=== PATIENT | male | born 1965 | race Caucasian/White ===

== ENCOUNTER 2018-01-09 00:56 | Emergency (ER) | payer MEDICARE, OTHER ==
[~2018-01-09] VITALS: Ht 182.9 cm; Wt 86.2 kg
[2018-01-09] MEDS ORDERED: AMIODARONE 150 MG/3 ML (CORDARONE) AMP IV ONE (01:00)
--- OUTSIDE RECORDS SUMMARY | 2018-01-09 01:01 | XMS REPORT ---
Author Author ROBERT FUENTES [facility] Address [address] [place] [address] Care Team Providers Care Residential Appraiser Name Role Phone ROBERT FUENTES Unavailable PROBLEMS Type Condition ICD9-CM Code SJM04-SN Code Onset Dates Condition Status SNOMED Code Problem Tobacco dependence F17.200 Active 00482018 Problem Paranoid schizophrenia F20.0 Active 46865414 Problem Generalized anxiety disorder F41.1 Active 48600764 Problem Encounter for long-term (current) use of other medications Z79.899 Active 151616009 ALLERGIES No Known Allergies ENCOUNTERS Encounter Location Date Diagnosis [facility] [id number] [place] [address] 78476- 2839 Jan, [facility] [id number] [place] [address] 01160- 5510 30 Nov, 2017 Acute pain of left knee M25.562 ; Tobacco dependence F17.200 ; Screening for diabetes mellitus Z13.1 ; High risk medication use Z79.899 ; Screening for thyroid disorder Z13.29 ; Screening for prostate cancer Z12.5 and Screening for colon cancer Z12.11 [facility] [id number] [place] [address] 80349- 6479 Nov, Paranoid schizophrenia F20.0 ; Generalized anxiety disorder F41.1 and Encounter for long-term (current) use of other medications Z79.899 [facility] [address] [address] Nov, Injury of neck, initial encounter S19.9XXA ; Injury of left knee, initial encounter S89.92XA and Impacted cerumen of left ear H61.22 [facility] [id number] [place] [address] 82793- 5533 Sep, [facility] [id number] [place] [address] August, Paranoid schizophrenia F20.0 ; Generalized anxiety disorder F41.1 and Encounter for long-term (current) use of other medications Z79.899 [facility] [address] [place] [address] August, [facility] [address] [place] [address] Jul, [facility] [address] [address] 3106 Apr, [facility] [address] [place] [address] Mar, Paranoid schizophrenia, chronic condition F20.0 ; Generalized anxiety disorder F41.1 and Encounter for long-term (current) use of other medications Z79.899 [facility] [address] [address] Feb, [facility] [address] [address]32 Dec, Paranoid schizophrenia, chronic condition F20.0 ; Generalized anxiety disorder F41.1 and Encounter for long-term (current) use of other medications Z79.899 [facility] [address] [address] Nov, [facility] [address] [address]- 0176 Nov, [facility] [address] [place] [address]- 3292 Nov, [facility] [address] [place] [address]- 3412 Oct, [facility] [address] [address]- 7481 Oct, [facility] [id number] [place] [address]- 6076 Sep, [facility] [address] [place] [address]- 9798 Sep, [facility] [address] [place] [address] 2546 August, [facility] [address] [address]- 1046 May, [facility] [address] [address]- 1651 Mar, Paranoid schizophrenia, chronic condition F20.0 ; Encounter for long-term (current) use of other medications Z79.899 and Generalized anxiety disorder F41.1 [facility] [address] [address]- 6226 Dec, [facility] [address] [place] [address]- 7286 Nov, Paranoid schizophrenia, chronic condition F20.0 ; Generalized anxiety disorder F41.1 and Encounter for long-term (current) use of other medications Z79.899 [facility] [address] [address]- 0686 Oct, [facility] [address] [place] [address]- 6986 Sep, [facility] [address] [place] [address]- 6466 Sep, [facility] [address] [place] [address]- 4276 August, [facility] [address] [place] [address]- 6396 Jun, [facility] [id number] [place] [address]- 7126 May, [facility] [id number] [place] [address]- 3792 Apr, Generalized anxiety disorder F41.1 [facility] [id number] [place] [address] 400654- 9191 Apr, [facility] [address] [place] [address] Mar, [facility] [id number] [place] [address] 024698- 1690 Mar, [facility] [id number] [place] [address] 14444- 6416 Feb, [facility] [id number] [place] [address] 09703- 7077 Feb, [facility] [id number] [place] [address] 63371- 8460 Feb, [facility] [id number] [place] [address] 23192- 0468 Jan, Generalized anxiety disorder F41.1 ; Encounter for long- term (current) use of other medications Z79.899 and Paranoid schizophrenia, chronic condition F20.0 [facility] [address] [place] [address] 55839- 5154 Dec, [facility] [address] [place] [address]- 7181 Dec, [facility] [address] [place] [address]- 0249 Dec, [facility] [address] [place] [address]- 2530 Nov, [facility] [id number] [place] [address] 70132- 7070 Oct, [facility] [address] [place] 7914 Oct, [facility] [id number] [place] [address] 55384- 2546 Oct, [facility] [place] [facility] [address] [id number] [place] [address]- 7497 August, [facility] [place] [facility] [address] [id number] [place] [address]- 3176 Jul, [facility] [place] [facility] [address] [facility] [id number] [place] [address]- 5889 Jul, [facility] [place] [facility] [address] [id number] [place] [address]- 2522 Jun, [facility] [place] [facility] [address] [id number] [place] [address]- 5600 Jun, [facility] [place] [facility] [address] [facility] [id number] [place] [address]- 3269 May, [facility] [place] [facility] [address] [facility] [id number] [place] [address]- 2969 May, [facility] [place] [facility] [address] [facility] [id number] [place] [address]- 4261 May, [facility] [place] [facility] [address] [facility] [id number] [place] [address]- 4208 May, [facility] [place] [facility] [address] [facility] [id number] [place] [address]- 2623 Apr, [facility] [place] [facility] [address] [facility] [id number] [place] [address]- 1617 Apr, [facility] [place] [facility] [address] [id number] [place] [address]- 7112 Mar, [facility] [place] [facility] [address] [id number] [place] [address]- 9350 Mar, [facility] [place] [facility] [address] [facility] [id number] [place] [address]- 9559 Mar, [facility] [place] [facility] [address] [facility] [id number] [place] [address]- 4306 Mar, [facility] [place] [facility] [address] [id number] [place] [address]- 1151 Mar, [facility] [place] [facility] [address] [id number] [place] [address]- 5730 Mar, [facility] [place] [facility] [address] [id number] [place] [address]- 3322 Feb, [facility] [place] [facility] [address] [id number] [place] [address]- 4627 Feb, [facility] [place] [facility] [address] [id number] [place] [address]- 7505 Jan, [facility] [place] [facility] [address] [id number] [place] [address]- 8919 Jan, [facility] [place] [facility] [address] [id number] [place] [address]- 7076 Jan, [facility] [place] [facility] [address] [id number] [place] [address]- 5728 Jan, [facility] [place] [facility] [address] [id number] [place] 6147 Dec, [facility] [place] [facility] [address] [id number] [place] [address]- 6808 Dec, [facility] [place] [facility] [address] [id number] [place] [address]643 Nov, [facility] [place] [facility] [address] [id number] [place] [address]- 5807 Nov, [facility] [place] [facility] [address] [id number] [place] [address]- 5545 Nov, [facility] [place] [facility] [address] [id number] [place] [address]- 4056 Nov, [facility] [place] [facility] [address] [id number] [place] [address]- 1685 Oct, [facility] [place] [facility] [address] [id number] [place] [address]- 0190 Oct, [facility] [place] [facility] [address] [id number] [place] [address]- 9952 Oct, [facility] [place] [facility] [address] [id number] [place] [address]- 4044 Oct, [facility] [place] [facility] [address] [id number] [place] [address]- 1319 Sep, [facility] [place] [facility] [address] [id number] [place] [address]- 3233 Sep, [facility] [place] [facility] [address] [id number] [place] [address]- 1902 Sep, [facility] [place] [facility] [address] [id number] [place] [address]- 5846 Sep, [facility] [place] [facility] [address] [id number] [place] [address]- 3219 Sep, [facility] [place] [facility] [address] [id number] [place] [address]- 6720 Sep, [facility] [place] [facility] [address] [id number] [place] [address]- 6760 August, [facility] [place] [facility] [address] [id number] [place] [address]- 2639 August, [facility] [place] [facility] [address] [id number] [place] [address]- 6641 August, [facility] [place] [facility] [address] [id number] [place] [address]- 5137 Jul, [facility] [place] [facility] [address] [id number] [place] [address]- 3644 Jul, [facility] [place] [facility] [address] [id number] [place] [address]- 0200 Jul, [facility] [place] [facility] [address] [id number] [place] [address]- 5565 Jul, [facility] [place] [facility] [address] [id number] [place] [address]- 2649 Jun, [facility] [place] [facility] [address] [id number] [place] [address]- 0383 Jun, [facility] [place] [facility] [address] [id number] [place] [address]- 2986 Jun, [facility] [place] [facility] [address] [id number] [place] [address]- 9515 Jun, [facility] [place] [facility] [address] [id number] [place] [address]- 3538 Jun, [facility] [place] [facility] [address] [id number] [place] [address]- 4699 Jun, [facility] [place] [facility] [address] [id number] [place] [address]- 7347 Jun, [facility] [place] [facility] [address] [facility] [id number] [place] [address]- 7429 Jun, [facility] [place] [facility] [address] [id number] [place] [address]- 6629 May, [facility] [place] [facility] [address] [id number] [place] [address]- 0714 May, [facility] [place] [facility] [address] [facility] [id number] [place] [address]- 4043 May, [facility] [place] [facility] [address] [id number] [place] [address]- 9976 May, [facility] [place] [facility] [address] [id number] [place] [address] 2546 May, [facility] [place] [facility] [address] [id number] [place] [address]- 9796 May, [facility] [place] [facility] [address] [facility] [id number] [place] [address]- 2546 May, [facility] [place] [facility] [address] [facility] [id number] [place] [address]- 2740 Mar, [facility] [place] [facility] [address] [id number] [place] [address]- 7175 Mar, [facility] [place] [facility] [address] [id number] [place] [address]- 8485 Mar, [facility] [place] [facility] [address] [id number] [place] 6794 Mar, [facility] [place] [facility] [address] [id number] [place] [address]- 5568 Mar, [facility] [place] [facility] [address] [id number] [place] [address]- 0529 Mar, [facility] [place] [facility] [address] [id number] [place] [address]- 3973 Mar, [facility] [place] [facility] [address] [id number] [place] [address]- 4198 Feb, [facility] [place] [facility] [address] [id number] [place] [address]- 2463 Feb, [facility] [place] [facility] [address] [id number] [place] [address]- 2921 Feb, [facility] [place] [facility] [address] [id number] [place] [address]- 2390 Jan, [facility] [place] [facility] [address] [id number] [place] [address]- 0020 30 Jan, 2013 [facility] [place] [facility] [address] [id number] [place] [address]- 4488 Jan, [facility] [place] [facility] [address] [id number] [place] [address]- 2388 Jan, [facility] [place] [facility] [address] [id number] [place] [address]- 2368 14 Nov, 2012 [facility] [place] [facility] [address] [id number] [place] [address]- 5793 Nov, [facility] [place] [facility] [address] [id number] [place] [address]- 9015 Nov, [facility] [address] [id number] [place] [address]- 2857 August, [facility] [address] [id number] [place] [address]- 5074 August, [facility] [address] [id number] [place] [address]- 3456 August, [facility] [address] [id number] [place] [address]- 4736 Jul, [facility] [address] [id number] [place] [address]- 9094 Jul, [facility] [address] [id number] [place] [address]- 6188 Jul, [facility] [address] [id number] [place] [address]- 9938 Jul, [facility] [address] [id number] [place] [address]- 9449 Jun, [facility] [address] [id number] [place] [address]- 9983 Jun, [facility] [address] [id number] [place] [address]- 3401 May, [facility] [address] [id number] [place] [address]- 2182 Apr, [facility] [address] [id number] [place] [address]- 1744 Apr, [facility] [place] [facility] [address] [id number] [place] [address]- 3553 Apr, [facility] [place] [facility] [address] [id number] [place] [address]- 7354 16 Apr, 2012 [facility] [address] [id number] [place] [address]- 3999 14 Apr, 2012 [facility] [place] [facility] [address] [id number] [place] [address]- 9992 10 Apr, 2012 [facility] [address] [id number] [place] [address]- 6586 09 Apr, 2012 [facility] [address] [id number] [place] [address]- 7442 04 Apr, 2012 [facility] [address] [id number] [place] [address]- 9075 Apr, [facility] [address] [id number] [place] [address]- 5187 Apr, [facility] [address] [id number] [place] [address]- 1200 Mar, [facility] [address] [id number] [place] [address]- 8431 Mar, [facility] [address] [id number] [place] [address]- 7625 Mar, [facility] [address] [id number] [place] [address]- 6445 Mar, [facility] [address] [id number] [place] [address]- 0725 Mar, [facility] [address] [id number] [place] [address]- 3329 18 Mar, 2012 [facility] [address] [id number] [place] [address]- 5870 18 Mar, 2012 [facility] [address] [id number] [place] [address]- 9186 Mar, [facility] [address] [id number] [place] [address]- 4976 10 Mar, 2012 [facility] [address] [id number] [place] [address]- 5925 07 Mar, 2012 [facility] [address] [id number] [place] [address]- 2546 Mar, [facility] [place] [facility] [address] [id number] [place] [address]- 2770 Mar, [facility] [place] [facility] [address] [id number] [place] [address]- 9016 Mar, [facility] [place] [facility] [address] [id number] [place] [address]- 3866 Mar, [facility] [place] [facility] [address] [id number] [place] [address]- 6265 Feb, [facility] [place] [facility] [address] [id number] [place] [address]- 4975 Feb, [facility] [place] [facility] [address] [id number] [place] [address]- 1588 Feb, [facility] [place] [facility] [address] [id number] [place] [address]- 5945 Feb, [facility] [place] [facility] [address] [id number] [place] [address]- 9493 Jan, [facility] [place] [facility] [address] [id number] [place] [address]- 3057 Jan, [facility] [place] [facility] [address] [id number] [place] [address]- 7696 Dec, [facility] [place] [facility] [address] [id number] [place] [address]- 7152 05 Dec, 2011 [facility] [place] [facility] [address] [id number] [place] [address]- 2932 Dec, [facility] [place] [facility] [address] [id number] [place] [address]- 5963 Nov, [facility] [place] [facility] [address] [id number] [place] [address]- 3338 Nov, [facility] [place] [facility] [address] [id number] [place] [address]- 4264 Oct, [facility] [place] [facility] [address] [id number] [place] [address]- 9812 Sep, [facility] [address] [id number] [place] [address]- 2908 Sep, [facility] [place] [facility] [address] [id number] [place] [address]- 8733 August, [facility] [address] [id number] [place] [address]- 7071 August, [facility] [place] [facility] [address] [id number] [place] [address]- 1774 Jul, [facility] [place] [facility] [address] [id number] [place] [address]- 4594 Jul, [facility] [place] [facility] [address] [id number] [place] [address]- 9585 Jun, [facility] [place] [facility] [address] [id number] [place] [address]- 1603 Jun, [facility] [address] [id number] [place] [address]- 1117 Jun, [facility] [place] [facility] [address] [id number] [place] [address]- 8098 Jun, [facility] [address] [id number] [place] [address]- 3551 May, [facility] [place] [facility] [address] [id number] [place] [address]- 7479 May, [facility] [place] [facility] [address] [id number] [place] [address]- 8369 May, [facility] [place] [facility] [address] [id number] [place] [address]- 1136 May, [facility] [place] [facility] [address] [id number] [place] [address]- 8256 May, [facility] [place] [facility] [address] [id number] [place] [address] Apr, [facility] [place] [facility] [address] [id number] [place] [address] Apr, [facility] [place] [facility] [address] [id number] [place] [address] Apr, [facility] [place] [facility] [address] [id number] [place] [address] Apr, [facility] [place] [facility] [address] [id number] [place] [address] Apr, [facility] [place] [facility] [address] [id number] [place] [address] Apr, [facility] [place] [facility] [address] [id number] [place] [address] Apr, [facility] [place] [facility] [address] [id number] [place] [address] Mar, [facility] [place] [facility] [address] [id number] [place] [address] Feb, [facility] [place] [facility] [address] [id number] [place] [address] Feb, [facility] [place] [facility] [address] [id number] [place] [address] Feb, [facility] [place] [facility] [address] [id number] [place] [address] Feb, [facility] [place] [facility] [address] [id number] [place] [address] Feb, [facility] [place] [facility] [address] [id number] [place] [address] Jan, [facility] [place] [facility] [address] [id number] [place] [address] Jan, [facility] [place] [facility] [address] [id number] [place] [address] Jan, [facility] [place] [facility] [address] [facility] [id number] [place] [address] Jan, [facility] [address] [facility] [id number] [place] [address] Nov, [facility] [address] [facility] [id number] [place] [address] Sep, [facility] [address] [facility] [id number] [place] [address] Jul, [facility] [address] [facility] [id number] [place] [address] Apr, IMMUNIZATIONS No Known Immunizations SOCIAL HISTORY Never Assessed REASON FOR VISIT Establish [facility]. KOKO Meneses, Follow up on knee and neck injury on 12/05/17 KOKO Ndiaye PLAN OF CARE Activity Details Follow Up 3 months or as indicated by lab Reason: VITAL SIGNS Height 69.75 in 2017-12-08 Weight 187.8 lbs 2017-12-08 Temperature 97.7 degrees Fahrenheit 2017-12-08 Heart Rate 92 bpm 2017-12-08 Respiratory Rate 18 2017-12-08 BMI 27.14 kg/m2 2017-12-08 Blood pressure systolic 130 mmHg 2017-12-08 Blood pressure diastolic 74 mmHg 2017-12-08 MEDICATIONS Medication Instructions Dosage Frequency Start Date End Date Duration Status Clonazepam 1 MG Orally 3 times a day for anxiety 1 tablet Active Invega 6 MG TAKE TWO TABLETS BY MOUTH ONCE DAILY Active RESULTS No Results PROCEDURES Procedure Date Ordered Result Body Site [facility] VISIT ESTABLISHED PATIENT Dec 08, 2017 INSTRUCTIONS MEDICATIONS ADMINISTERED No Known Medications MEDICAL (GENERAL) HISTORY Type Description Date Medical History schizophrenic Hospitalization History hospitalized for pneumonia 1982
--- OUTSIDE RECORDS SUMMARY | 2018-01-09 01:02 | XMS REPORT ---
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 Name Role Phone SERENE KILLIAN Unavailable PROBLEMS Type Condition ICD9-CM Code YVE74-LU Code Onset Dates Condition Status SNOMED Code Problem Tobacco dependence F17.200 Active 96401417 Problem Paranoid schizophrenia F20.0 Active 38109331 Problem Generalized anxiety disorder F41.1 Active 86859315 Problem Encounter for long-term (current) use of other medications Z79.899 Active [id number] ALLERGIES No Known Allergies ENCOUNTERS Encounter Location Date Diagnosis [facility] [address] [address] Jan, [facility] [id number] [place] [address]- 3708 Nov, Acute pain of left knee M25.562 ; Tobacco dependence F17.200 ; Screening for diabetes mellitus Z13.1 ; High risk medication use Z79.899 ; Screening for thyroid disorder Z13.29 ; Screening for prostate cancer Z12.5 and Screening for colon cancer Z12.11 [facility] [id number] [place] [address]- [address]88 Nov, Paranoid schizophrenia F20.0 ; Generalized anxiety disorder F41.1 and Encounter for long-term (current) use of other medications Z79.899 [facility] [id number] [place] [address] Nov, Injury of neck, initial encounter S19.9XXA ; Injury of left knee, initial encounter S89.92XA and Impacted cerumen of left ear H61.22 [facility] [id number] [place] [address]- 1712 Sep, [facility] [address], [place] [address] August, Paranoid schizophrenia F20.0 ; Generalized anxiety disorder F41.1 and Encounter for long-term (current) use of other medications Z79.899 [facility] [address], [place] [address] August, [facility] [id number], [place] [address] Jul, [facility] [address], [place] [address] Apr, [facility] [address] [address] 27[address] Mar, Paranoid schizophrenia, chronic condition F20.0 ; Generalized anxiety disorder F41.1 and Encounter for long-term (current) use of other medications Z79.899 [facility] [address], [place] [address] Feb, [facility] [address] [address] Dec, Paranoid schizophrenia, chronic condition F20.0 ; Generalized anxiety disorder F41.1 and Encounter for long-term (current) use of other medications Z79.899 [facility] [address], [place] [address] Nov, [facility] [address], [place] [address] 97[address] Nov, [facility] [address], [place] [address] 14[address] Nov, [facility] [address], [place] [address]- 2345 Oct, [facility] [address], [place] [address] 2069 Oct, [facility] [address], [place] [address] 2546 Sep, [facility] [address], [place] [address]- 375[address] Sep, [facility] [address], [place] [address] 2546 August, [facility] [address], [place] [address]- 1516 May, [facility] [id number] [address] Mar, Paranoid schizophrenia, chronic condition F20.0 ; Encounter for long-term (current) use of other medications Z79.899 and Generalized anxiety disorder F41.1 [facility] [address], [place] [address]- [address] Dec, [facility] [address], [place] [address]- 8[address] Nov, Paranoid schizophrenia, chronic condition F20.0 ; Generalized anxiety disorder F41.1 and Encounter for long-term (current) use of other medications Z79.899 [facility] [address], [place] [address]- 4[address] Oct, [facility] [address], [place] [address]- 4[address] Sep, [facility] [address], [place] [address]- 4326 Sep, [facility] [id number] [address]- 07[address] August, [facility] [address], [place] [address]- 7336 Jun, [facility] [id number], [place] [address]- 3586 May, [facility] [address], [place] [address]- 6885 Apr, Generalized anxiety disorder F41.1 [facility] [id number] [place] [address] 936706- 3554 Apr, [facility] [id number] [place] [address] 216336- 0979 Mar, [facility] [id number] [place] [address] 737155- 4485 Mar, [facility] [id number] [place] [address] 860802- 2667 Feb, [facility] [id number] [place] [address] 126748- 9657 Feb, [facility] [id number] [place] [address] 496604- 7639 Feb, [facility] [id number] [place] [address] 85764- 9959 Jan, Generalized anxiety disorder F41.1 ; Encounter for long- term (current) use of other medications Z79.899 and Paranoid schizophrenia, chronic condition F20.0 [facility] [address] [place] [address] 56268- 6828 Dec, [facility] [address], [place] [address]- 6889 Dec, [facility] [address], [place] [address]- 6434 Dec, [facility] [address] [place] [address] 93583- 6842 Nov, [facility] [id number] [place] [address] 037247- 9028 Oct, [facility] [address], [place] [address]- 8050 Oct, [facility] [id number] [place] [address] 608180- 3293 Oct, [facility] [place] [facility] [address] [id number] [place] [address]- 4377 August, [facility] [place] [facility] [address] [id number] [place] [address]- 9854 Jul, [facility] [place] [facility] [address] [id number] [place] [address]- 4784 Jul, [facility] [place] [facility] [address] [id number] [place] [address]- 5924 Jun, [facility] [place] [facility] [address] [id number] [place] [address]- 7564 Jun, [facility] [place] [facility] [address] [id number] [place] [address]- 9319 May, [facility] [place] [facility] [address] [id number] [place] [address]- 7135 May, [facility] [place] [facility] [address] [id number] [place] [address]- 3504 May, [facility] [place] [facility] [address] [id number] [place] [address]- 9884 May, [facility] [place] [facility] [address] [id number] [place] [address]- 0881 Apr, [facility] [place] [facility] [address] [id number] [place] [address]- 8446 Apr, [facility] [place] [facility] [address] [id number] [place] [address]- 7361 Mar, [facility] [place] [facility] [address] [id number] [place] [address]- 3290 Mar, [facility] [place] [facility] [address] [id number] [place] [address]- 9305 Mar, [facility] [place] [facility] [address] [id number] [place] [address]- 3878 Mar, [facility] [place] [facility] [address] [id number] [place] [address]- 2666 Mar, [facility] [place] [facility] [address] [id number] [place] [address]- 6266 Mar, [facility] [place] [facility] [address] [id number] [place] [address]- 5517 Feb, [facility] [place] [facility] [address] [id number] [place] [address]- 5511 Feb, [facility] [place] [facility] [address] [id number] [place] [address]- 8060 Jan, [facility] [place] [facility] [address] [id number] [place] [address]- 0203 Jan, [facility] [place] [facility] [address] [id number] [place] [address]- 1707 Jan, [facility] [place] [facility] [address] [id number] [place] [address]- 8241 Jan, [facility] [place] [facility] [address] [id number] [place] [address]- 1654 Dec, [facility] [place] [facility] [address] [id number] [place] [address]- 4733 Dec, [facility] [place] [facility] [address] [id number] [place] [address]- 1590 Nov, [facility] [place] [facility] [address] [id number] [place] [address]- 2419 Nov, [facility] [place] [facility] [address] [id number] [place] [address]- 3288 Nov, [facility] [place] [facility] [address] [id number] [place] [address]- 1347 Nov, [facility] [place] [facility] [address] [id number] [place] [address]- 1760 Oct, [facility] [place] [facility] [address] [id number] [place] [address]- 7986 Oct, [facility] [place] [facility] [address] [id number] [place] [address]- 2218 Oct, [facility] [place] [facility] [address] [id number] [place] [address]- 7687 Oct, [facility] [place] [facility] [address] [id number] [place] [address]- 9443 Sep, [facility] [place] [facility] [address] [id number] [place] [address]- 5448 Sep, [facility] [place] [facility] [address] [id number] [place] [address]- 7603 Sep, [facility] [place] [facility] [address] [id number] [place] [address]- 5417 Sep, [facility] [place] [facility] [address] [id number] [place] [address]- 3582 Sep, [facility] [place] [facility] [address] [id number] [place] [address]- 9972 Sep, [facility] [place] [facility] [address] [id number] [place] [address]- 9564 August, [facility] [place] [facility] [address] [id number] [place] [address]- 9919 August, [facility] [place] [facility] [address] [id number] [place] [address]- 7420 August, [facility] [place] [facility] [address] [id number] [place] [address]- 0208 Jul, [facility] [place] [facility] [address] [id number] [place] [address]- 0095 Jul, [facility] [place] [facility] [address] [id number] [place] [address]- 4495 Jul, [facility] [place] [facility] [address] [id number] [place] [address]- 9753 Jul, [facility] [place] [facility] [address] [id number] [place] [address]- 5248 Jun, [facility] [place] [facility] [address] [id number] [place] [address]- 5056 Jun, [facility] [place] [facility] [address] [id number] [place] [address]- 4348 Jun, [facility] [place] [facility] [address] [id number] [place] [address]- 3235 Jun, [facility] [place] [facility] [address] [id number] [place] [address]- 8264 Jun, [facility] [place] [facility] [address] [id number] [place] [address]- 7423 Jun, [facility] [place] [facility] [address] [facility] [id number] [place] [address]- 8140 Jun, [facility] [place] [facility] [address] [facility] [id number] [place] [address]- 3387 Jun, [facility] [place] [facility] [address] [facility] [id number] [place] [address]- 4135 May, [facility] [place] [facility] [address] [facility] [id number] [place] [address]- 5925 May, [facility] [place] [facility] [address] [facility] [id number] [place] [address]- 7278 May, [facility] [place] [facility] [id number] [place] [address]- 4614 May, [facility] [place] [facility] [address] [facility] [id number] [place] [address]- 6078 May, [facility] [place] [facility] [address] [facility] [id number] [place] [address]- 1616 May, [facility] [place] [facility] [address] [facility] [id number] [place] [address]- 5566 May, [facility] [place] [facility] [id number] [place] [address]- 1430 Mar, [facility] [place] [facility] [address] [id number] [place] [address]- 5259 Mar, [facility] [place] [facility] [address] [id number] [place] [address]- 9034 Mar, [facility] [place] [facility] [address] [id number] [place] 0606 Mar, [facility] [place] [facility] [address] [id number] [place] [address]- 2245 Mar, [facility] [place] [facility] [address] [id number] [place] [address]- 4330 Mar, [facility] [place] [facility] [address] [id number] [place] [address]- 7672 Mar, [facility] [place] [facility] [address] [id number] [place] [address]- 1624 Feb, [facility] [place] [facility] [address] [id number] [place] [address]- 5715 Feb, [facility] [place] [facility] [address] [id number] [place] [address]- 7013 Feb, [facility] [place] [facility] [address] [id number], [place] [address]- 5460 Jan, [facility] [place] [facility] [address] [id number], [place] [address]- 6616 Jan, [facility] [place] [facility] [address] [id number], [place] [address]- 6588 Jan, [facility] [place] [facility] [address] [id number] [place] [address]- 8277 Jan, [facility] [place] [facility] [address] [id number], [place] [address]- 8286 14 Nov, 2012 [facility] [place] [facility] [address] [id number] 8919 Nov, [facility] [place] [facility] [address] [id number], [place] [address]- 5389 Nov, [facility] [address] [id number] [place] [address]- 0067 August, [facility] [address] [id number] [place] [address]- 0156 August, [facility] [address] [id number] [place] [address]- 3346 August, [facility] [address] [id number] [place] [address]- 2060 Jul, [facility] [address] [id number] [place] [address]- 2836 Jul, [facility] [address] [id number] [place] [address]- 7362 Jul, [facility] [address] [id number] [place] [address]- 3567 Jul, [facility] [address] [id number] [place] [address]- 1142 Jun, [facility] [address] [id number] [place] [address]- 1735 Jun, [facility] [address] [id number] [place] [address]- 5591 May, [facility] [address] [id number] [place] [address]- 1502 Apr, [facility] [address] [id number] [place] [address]- 6916 Apr, [facility] [address] [id number] [place] [address]- 6407 Apr, [facility] [address] [id number] [place] [address]- 4076 16 Apr, 2012 [facility] [address] [id number] [place] [address]- 4356 14 Apr, 2012 [facility] [address] [id number] [place] [address]- 7571 10 Apr, 2012 [facility] [place] [facility] [address] [id number] [place] [address]- 6219 Apr, [facility] [place] [facility] [address] [id number] [place] [address] 2546 Apr, [facility] [place] [facility] [address] [id number] [place] [address]- 8586 Apr, [facility] [place] [facility] [address] [id number] [place] [address]- 3706 Apr, [facility] [place] [facility] [address] [id number] [place] [address]- 5837 Mar, [facility] [place] [facility] [address] [id number] [place] [address]- 9139 Mar, [facility] [address] [id number] [place] [address]- 0432 Mar, [facility] [address] [id number] [place] [address]- 0195 Mar, [facility] [place] [facility] [address] [id number] [place] [address]- 5630 Mar, [facility] [place] [facility] [address] [id number] [place] [address]- 0811 18 Mar, [address] [facility] [place] [facility] [address] [id number] [place] [address]- 2548 18 Mar, 2012 [facility] [place] [facility] [address] [id number] [place] [address] 2546 10 Mar, 2012 [facility] [place] [facility] [address] [id number] [place] [address] 2546 10 Mar, 2012 [facility] [place] [facility] [address] [id number] [place] [address] 2546 07 Mar, 2012 [facility] [place] [facility] [address] [id number] [place] [address] 2541 Mar, [facility] [place] [facility] [address] [id number] [place] [address]- 7118 Mar, [facility] [place] [facility] [address] [id number] [place] [address]- 5566 Mar, [facility] [place] [facility] [address] [facility] [id number] [place] [address]- 2546 Mar, [facility] [place] [facility] [address] [id number] [place] [address]- 6031 Feb, [facility] [place] [facility] [address] [id number] [place] [address]- 7262 Feb, [facility] [place] [facility] [address] [id number] [place] [address]- 8944 Feb, [facility] [place] [facility] [address] [facility] [id number] [place] [address]- 9838 Feb, [facility] [place] [facility] [address] [id number], [place] [address]- 1000 Jan, [facility] [place] [facility] [address] [id number] [place] [address]- 5889 Jan, [facility] [place] [facility] [address] [id number] [place] [address]- 5793 Dec, [facility] [place] [facility] [address] [id number], [place] [address]- 2546 Dec, [facility] [place] [facility] [address] [id number], [place] [address]- 2544 Dec, [facility] [place] [facility] [address] [id number] [place] [address]- 2540 Nov, [facility] [place] [facility] [address] [facility] [id number], [place] [address]- 2546 Nov, [facility] [place] [facility] [address] [facility] [id number], [place] [address]- 2546 Oct, [facility] [place] [facility] [address] [id number] [place] [address]- 7020 Sep, [facility] [place] [facility] [address] [id number] [place] [address]- 7465 Sep, [facility] [place] [facility] [address] [id number] [place] [address]- 1686 August, [facility] [place] [facility] [address] [id number] [place] [address]- 0578 August, [facility] [place] [facility] [address] [id number] [place] [address]- 1105 Jul, [facility] [place] [facility] [address] [id number] [place] [address]- 9384 Jul, [facility] [place] [facility] [address] [id number] [place] [address]- 7818 Jun, [facility] [place] [facility] [address] [id number] [place] [address]- 4318 Jun, [facility] [place] [facility] [address] [id number] [place] [address]- 6276 Jun, [facility] [place] [facility] [address] [id number] [place] [address]- 4429 Jun, [facility] [place] [facility] [address] [facility] [id number] [place] [address] May, [facility] [place] [facility] [address] [id number] [place] [address] May, [facility] [place] [facility] [address] [id number] [place] [address] May, [facility] [place] [facility] [address] [id number] [place] [address] May, [facility] [place] [facility] [address] [id number] [place] [address] May, [facility] [place] [facility] [address] [id number] [place] [address] Apr, [facility] [place] [facility] [address] [id number] [place] [address] Apr, [facility] [place] [facility] [address] [id number] [place] [address] Apr, [facility] [place] [facility] [address] [id number] [place] [address] Apr, [facility] [place] [facility] [address] [id number] [place] [address] Apr, [facility] [place] [facility] [address] [id number] [place] [address] Apr, [facility] [place] [facility] [address] [id number] [place] [address] Apr, [facility] [place] [facility] [address] [id number] [place] [address] Mar, [facility] [place] [facility] [address] [id number] [place] [address] Feb, [facility] [place] [facility] [address] [id number] [place] [address] Feb, [facility] [place] [facility] [address] [id number], [place] [address] Feb, [facility] [place] [facility] [address] [id number], [place] [address] Feb, [facility] [place] [facility] [address] [id number], [place] [address] Feb, [facility] [place] [facility] [address] [id number] [place] [address] Jan, [facility] [place] [facility] [address] [id number], [place] [address] Jan, [facility] [place] [facility] [address] [id number] [place] [address] Jan, [facility] [place] [facility] [address] [facility] [id number] [place] [address] Jan, [facility] [address] [facility] [id number], [place] [address] Nov, [facility] [address] [facility] [id number], [place] [address] Sep, [facility] [address] [facility] [id number], [place] [address] Jul, [facility] [address] [facility] [id number], [place] [address] Apr, IMMUNIZATIONS No Known Immunizations SOCIAL HISTORY Never Assessed REASON FOR VISIT was at [facility] 30 minutes ago...[place] over [place]fell et left knee pain. reports he broke his neck 2 years ago et his neck hurts now too. rbandi bautista LOC, pt reports he has already called the main office of [facility] [employer] to rport to them that he will be needing compensated for his medical bills related to this accident, appt with espinoza on 12/05/2017 at 1000. PLAN OF CARE Activity Details Follow Up 12/05 w/ Rebecca Edwards Reason:knee and neck injury VITAL SIGNS Height 69.75 in 2017-11-25 Weight 188.0 lbs 2017-11-25 Temperature 97.8 degrees Fahrenheit 2017-11-25 Heart Rate 94 bpm 2017-11-25 Respiratory Rate 20 2017-11-25 BMI 27.17 kg/m2 2017-11-25 Blood pressure systolic 128 mmHg 2017-11-25 Blood pressure diastolic 76 mmHg 2017-11-25 MEDICATIONS Medication Instructions Dosage Frequency Start Date End Date Duration Status Clonazepam 1 MG Orally 3 times a day for anxiety 1 tablet 30 days Active Carbamide Peroxide 6.5 % Otic Twice a day 5 drops into affected ear 12h Nov, Nov, 4 day(s) Active Invega 6 MG TAKE TWO TABLETS BY MOUTH ONCE DAILY 30 Active RESULTS Name Result Date Reference Range Xray : Spine, Cervical (IN HOUSE) 2017-11-25 Xray : Knee, Left 3 views (IN HOUSE) 2017-11-25 PROCEDURES Procedure Date Ordered Result Body Site X-RAY EXAM OF NECK SPINE Nov 25, 2017 X-RAY EXAM OF KNEE, 3 Nov 25, 2017 [facility] VISIT ESTABLISHED PATIENT Nov 25, 2017 INSTRUCTIONS MEDICATIONS ADMINISTERED No Known Medications MEDICAL (GENERAL) HISTORY Type Description Date Medical History schizophrenic Hospitalization History hospitalized for pneumonia 1982
--- OUTSIDE RECORDS SUMMARY | 2018-01-09 01:02 | XMS REPORT ---
Author Author KALPESH SÁNCHEZ Organization [facility] Address [address] [place] [address] Care Team Providers Care Brand Inspector Name Role Phone PRINCESSDIEGOA Unavailable PROBLEMS Type Condition ICD9-CM Code VAP58-WM Code Onset Dates Condition Status SNOMED Code Problem Tobacco dependence F17.200 Active 09917956 Problem Paranoid schizophrenia F20.0 Active 33971175 Problem Generalized anxiety disorder F41.1 Active 26165895 Problem Encounter for long-term (current) use of other medications Z79.899 Active [id number] ALLERGIES No Known Allergies ENCOUNTERS Encounter Location Date Diagnosis [facility] [id number] [place] [address] 09438- 1568 Jan, [facility] [id number] [place] [address] 70460- 1365 Nov, Acute pain of left knee M25.562 ; Tobacco dependence F17.200 ; Screening for diabetes mellitus Z13.1 ; High risk medication use Z79.899 ; Screening for thyroid disorder Z13.29 ; Screening for prostate cancer Z12.5 and Screening for colon cancer Z12.11 [facility] [id number] [place] [address] 51264- 3525 Nov, Paranoid schizophrenia F20.0 ; Generalized anxiety disorder F41.1 and Encounter for long-term (current) use of other medications Z79.899 [facility] [id number] [place] [address]7688 -5934 Nov, Injury of neck, initial encounter S19.9XXA ; Injury of left knee, initial encounter S89.92XA and Impacted cerumen of left ear H61.22 [facility] [id number] [place] [address] 41915- 0924 Sep, [facility] [id number] [address] 8060 August, Paranoid schizophrenia F20.0 ; Generalized anxiety disorder F41.1 and Encounter for long-term (current) use of other medications Z79.899 [facility] [address] [address] August, [facility] [address] [address]- 2774 Jul, [facility] [id number] [address] 5026 Apr, [facility] [address] [address] Mar, Paranoid schizophrenia, chronic condition F20.0 ; Generalized anxiety disorder F41.1 and Encounter for long-term (current) use of other medications Z79.899 [facility] [address], [place] [address] 9[address] Feb, [facility] [address] [address]85 Dec, Paranoid schizophrenia, chronic condition F20.0 ; Generalized anxiety disorder F41.1 and Encounter for long-term (current) use of other medications Z79.899 [facility] [id number] [address] Nov, [facility] [address], [place] [address]- 8471 Nov, [facility] [id number] 4685 Nov, [facility] [address] 2161 Oct, [facility] [id number] [place] [address]- 4533 Oct, [facility] [address] [address]- 0876 Sep, [facility] [address] [address]- 1875 Sep, [facility] [address] [address]- 9866 August, [facility] [address] [address]- 3336 May, [facility] [address] [address]- 8531 Mar, Paranoid schizophrenia, chronic condition F20.0 ; Encounter for long-term (current) use of other medications Z79.899 and Generalized anxiety disorder F41.1 [facility] [address] [address]- 2603 Dec, [facility] [address] [address]- 0016 Nov, Paranoid schizophrenia, chronic condition F20.0 ; Generalized anxiety disorder F41.1 and Encounter for long-term (current) use of other medications Z79.899 [facility] [address] [address]- 9986 Oct, [facility] [address] [address]- 9598 Sep, [facility] [address], [place] [address]- 7273 Sep, [facility] [address] [address]- 8996 August, [facility] [address], [place] [address]- 8816 Jun, [facility] [address] [address]- 9556 May, [facility] [address], [place] [address]- 7619 Apr, Generalized anxiety disorder F41.1 [facility] [address] [address]- 1793 Apr, [facility] [id number] [address]- 6226 Mar, [facility] [id number] [place] [address] 90896- 0051 Mar, [facility] [id number] [place] [address] 47351- 7470 Feb, [facility] [id number] [place] [address] 91193- 7406 Feb, [facility] [id number] [place] [address] 815182- 4715 Feb, [facility] [id number] [place] [address] 232031- 4247 Jan, Generalized anxiety disorder F41.1 ; Encounter for long- term (current) use of other medications Z79.899 and Paranoid schizophrenia, chronic condition F20.0 [facility] [address] [address]- 3853 Dec, [facility] [address], [place] [address]- 9416 Dec, [facility] [address] [address]- 7006 Dec, [facility] [address] 6216 Nov, [facility] [id number] 5639 Oct, [facility] [address] [address]- 4906 Oct, [facility] [address] [place] [address] 13495- 5743 Oct, [facility] [place] [facility] [address] [id number] [place] [address]- 6659 August, [facility] [place] [facility] [address] [id number] [place] [address]- 6628 Jul, [facility] [place] [facility] [address] [id number] [place] [address]- 8030 Jul, [facility] [place] [facility] [address] [id number] [place] [address]- 3263 Jun, [facility] [place] [facility] [address] [id number] [place] [address]- 4355 Jun, [facility] [place] [facility] [address] [id number] [place] [address]- 9679 May, [facility] [place] [facility] [address] [id number] [place] [address]- 3017 May, [facility] [place] [facility] [address] [id number] [place] [address]- 0738 May, [facility] [place] [facility] [address] [id number] [place] [address]- 3937 May, [facility] [place] [facility] [address] [id number] [place] [address]- 4556 Apr, [facility] [place] [facility] [address] [id number] [place] [address]- 9940 Apr, [facility] [place] [facility] [address] [id number] [place] [address]- 4461 Mar, [facility] [place] [facility] [address] [id number] [place] [address]- 5896 Mar, [facility] [place] [facility] [address] [id number] [place] [address]- 8576 Mar, [facility] [place] [facility] [address] [facility] [id number] [place] [address]- 4704 Mar, [facility] [place] [facility] [address] [id number] [place] [address]- 8225 Mar, [facility] [place] [facility] [address] [id number] [place] [address]- 5916 Mar, [facility] [place] [facility] [address] [id number] [place] [address]- 0449 Feb, [facility] [place] [facility] [address] [id number] [place] [address]- 6387 Feb, [facility] [place] [facility] [address] [id number] [place] [address]- 3785 Jan, [facility] [place] [facility] [address] [id number] [place] [address]- 8775 Jan, [facility] [place] [facility] [address] [id number] [place] [address]- 1750 Jan, [facility] [place] [facility] [address] [id number] [place] [address]- 0594 Jan, [facility] [place] [facility] [address] [id number] [place] [address]- 9032 Dec, [facility] [place] [facility] [address] [id number] [place] [address]- 2476 Dec, [facility] [place] [facility] [address] [id number] [place] [address]- 7127 Nov, [facility] [place] [facility] [address] [id number] [place] [address]- 8553 Nov, [facility] [place] [facility] [address] [id number] [place] [address]- 8724 Nov, [facility] [place] [facility] [address] [id number] [place] [address]- 8197 Nov, [facility] [place] [facility] [address] [id number] [place] [address]- 2944 Oct, [facility] [place] [facility] [address] [id number] [place] [address]- 2071 Oct, [facility] [place] [facility] [address] [id number] [place] [address]- 7818 Oct, [facility] [place] [facility] [address] [id number] [place] [address]- 4163 Oct, [facility] [place] [facility] [address] [id number] [place] [address]- 9353 Sep, [facility] [place] [facility] [address] [id number] [place] [address]- 3733 Sep, [facility] [place] [facility] [address] [id number] [place] [address]- 3217 Sep, [facility] [place] [facility] [address] [id number] [place] [address]- 0600 Sep, [facility] [place] [facility] [address] [id number] [place] [address]- 0407 Sep, [facility] [place] [facility] [address] [id number] [place] [address]- 1648 Sep, [facility] [place] [facility] [address] [id number] [place] [address]- 0786 August, [facility] [place] [facility] [address] [id number] [place] [address]- 3010 August, [facility] [place] [facility] [address] [id number] [place] [address]- 8212 August, [facility] [place] [facility] [address] [id number] [place] [address]- 2473 Jul, [facility] [place] [facility] [address] [id number] [place] [address]- 2067 Jul, [facility] [place] [facility] [address] [id number] [place] [address]- 0306 Jul, [facility] [place] [facility] [address] [id number] [place] [address]- 5677 Jul, [facility] [place] [facility] [address] [id number] [place] [address]- 0634 Jun, [facility] [place] [facility] [address] [id number] [place] [address]- 3994 Jun, [facility] [place] [facility] [address] [id number] [place] [address]- 3994 Jun, [facility] [place] [facility] [address] [facility] [id number] [place] [address]- 8820 Jun, [facility] [place] [facility] [address] [id number] [place] [address]- 8410 Jun, [facility] [place] [facility] [address] [id number] [place] [address]- 7425 Jun, [facility] [place] [facility] [address] [facility] [id number] [place] [address]- 6002 Jun, [facility] [place] [facility] [id number] [place] [address]- 1296 Jun, [facility] [place] [facility] [address] [facility] [id number] [place] [address]- 9762 May, [facility] [place] [facility] [address] [facility] [id number] [place] [address]- 3500 May, [facility] [place] [facility] [address] [facility] [id number] [place] [address]- 1532 May, [facility] [place] [facility] [id number] [place] [address]- 0143 May, [facility] [place] [facility] [address] [facility] [id number] [place] [address]- 8427 May, [facility] [place] [facility] [address] [facility] [id number] [place] [address]- 3675 May, [facility] [place] [facility] [address] [facility] [id number] [place] 5263 May, [facility] [place] [facility] [address] [facility] [id number] [place] [address]- 1018 Mar, [facility] [place] [facility] [address] [id number] [place] [address]- 5802 Mar, [facility] [place] [facility] [address] [id number] [place] [address]- 5077 Mar, [facility] [place] [facility] [address] [id number] [place] [address]- 9410 Mar, [facility] [place] [facility] [address] [id number] [place] [address]- 1102 Mar, [facility] [place] [facility] [address] [id number] [place] 9320 Mar, [facility] [place] [facility] [address] [id number] [place] [address]- 2284 Mar, [facility] [place] [facility] [address] [id number] [place] [address]- 2130 Feb, [facility] [place] [facility] [address] [id number] [place] [address]- 5586 Feb, [facility] [place] [facility] [address] [id number] [place] [address]- 2344 Feb, [facility] [place] [facility] [address] [id number] [place] [address]- 0058 Jan, [facility] [place] [facility] [address] [id number] [place] [address]- 5036 30 Jan, 2013 [facility] [place] [facility] [address] [id number] [address]- 2846 Jan, [facility] [place] [facility] [address] [id number] [place] [address]- 7092 Jan, [facility] [place] [facility] [address] [id number] [place] [address]- 6786 14 Nov, 2012 [facility] [place] [facility] [address] [id number], [place] [address]- 5265 Nov, [facility] [place] [facility] [address] [id number], [place] [address]- 4944 Nov, [facility] [address] [id number] [place] [address]- 0901 August, [facility] [address] [id number] [place] [address]- 7688 August, [facility] [address] [id number] [place] [address]- 1719 August, [facility] [address] [id number] [place] [address]- 1342 Jul, [facility] [address] [id number] [place] [address]- 6030 Jul, [facility] [address] [id number] [place] [address]- 9867 Jul, [facility] [address] [id number] [place] [address]- 6162 Jul, [facility] [address] [id number] [place] [address]- 3669 Jun, [facility] [address] [id number] [place] [address]- 2670 Jun, [facility] [address] [id number] [place] [address]- 9384 May, [facility] [address] [id number] [place] [address]- 4813 Apr, [facility] [place] [facility] [address] [id number] [place] [address]- 2276 Apr, [facility] [place] [facility] [address] [id number] [place] [address]- 4661 Apr, [facility] [place] [facility] [address] [id number] [place] [address]- 4690 16 Apr, 2012 [facility] [place] [facility] [address] [id number] [place] [address]- 2252 14 Apr, 2012 [facility] [place] [facility] [address] [id number] [place] [address]- 8836 10 Apr, 2012 [facility] [address] [id number] [place] [address]- 8099 Apr, [facility] [place] [facility] [address] [id number] [place] [address]- 0076 Apr, [facility] [address] [id number] [place] [address]- 6088 Apr, [facility] [place] [facility] [address] [id number] [place] [address]- 1959 Apr, [facility] [address] [id number] [place] [address]- 7382 Mar, [facility] [place] [facility] [address] [id number] [place] [address]- 4750 Mar, [facility] [address] [id number] [place] [address]- 3213 Mar, [facility] [address] [id number] [place] [address]- 5426 Mar, [facility] [address] [id number] [place] [address]- 2710 Mar, [facility] [address] [id number] [place] [address]- 7455 18 Mar, 2012 [facility] [place] [facility] [address] [id number] [place] [address]- 2997 18 Mar, 2012 [facility] [place] [facility] [address] [id number] [place] [address] 2547 10 Mar, 2012 [facility] [place] [facility] [address] [id number] [place] [address]- 5136 10 Mar, 2012 [facility] [place] [facility] [address] [id number] [place] [address]- 4966 07 Mar, 2012 [facility] [place] [facility] [address] [id number] [place] [address]- 4790 Mar, [facility] [place] [facility] [address] [id number] [place] [address]- 5324 Mar, [facility] [place] [facility] [address] [id number] [place] [address]- 8584 Mar, [facility] [place] [facility] [address] [id number] [place] [address]- 8079 Mar, [facility] [place] [facility] [address] [id number] [place] [address]- 4326 Feb, [facility] [place] [facility] [address] [id number] [place] [address]- 2342 Feb, [facility] [place] [facility] [address] [id number] [place] [address]- 1995 Feb, [facility] [place] [facility] [address] [id number] [place] [address]- 4779 Feb, [facility] [place] [facility] [address] [id number] [place] [address]- 2559 Jan, [facility] [place] [facility] [address] [id number] [place] [address]- 4669 Jan, [facility] [place] [facility] [address] [id number] [place] [address]- 8584 Dec, [facility] [place] [facility] [address] [id number], [place] [address]- 5301 Dec, [facility] [place] [facility] [address] [id number], [place] [address]- 2914 Dec, [facility] [place] [facility] [address] [id number] [place] [address]- 3284 Nov, [facility] [place] [facility] [address] [id number], [place] [address]- 5563 Nov, [facility] [place] [facility] [address] [id number] [place] [address]- 6721 Oct, [facility] [place] [facility] [address] [id number] [place] [address]- 6014 Sep, [facility] [address] [id number] [place] [address]- 9311 Sep, [facility] [place] [facility] [address] [id number] [place] [address]- 8196 August, [facility] [place] [facility] [address] [id number] [place] [address]- 5506 August, [facility] [place] [facility] [address] [id number] [place] [address]- 6922 Jul, [facility] [place] [facility] [address] [id number] [place] [address]- 0667 Jul, [facility] [place] [facility] [address] [id number] [place] [address]- 3044 Jun, [facility] [place] [facility] [address] [id number] [place] [address]- 1072 Jun, [facility] [place] [facility] [address] [id number] [place] [address]- 6385 Jun, [facility] [place] [facility] [address] [id number] [place] 1212 Jun, [facility] [place] [facility] [address] [facility] [id number] [place] [address] May, [facility] [place] [facility] [address] [id number] [place] [address] May, [facility] [place] [facility] [address] [id number] [place] [address] May, [facility] [place] [facility] [address] [id number] [place] [address] May, [facility] [place] [facility] [address] [facility] [id number] [place] [address] May, [facility] [place] [facility] [address] [facility] [id number] [place] [address] [address] Apr, [facility] [place] [facility] [address] [id number] [place] [address] Apr, [facility] [place] [facility] [address] [id number] [place] [address] Apr, [facility] [place] [facility] [address] [id number] [place] [address] Apr, [facility] [place] [facility] [address] [id number] [place] [address] Apr, [facility] [place] [facility] [address] [id number] [place] [address] Apr, [facility] [place] [facility] [address] [id number] [place] [address] Apr, [facility] [place] [facility] [address] [id number] [place] [address] Mar, [facility] [place] [facility] [address] [id number], [place] [address] Feb, [facility] [place] [facility] [address] [id number] [place] [address] Feb, [facility] [place] [facility] [address] [id number], [place] [address] Feb, [facility] [place] [facility] [address] [id number], [place] [address] Feb, [facility] [place] [facility] [address] [id number], [place] [address] Feb, [facility] [place] [facility] [address] [id number] [place] [address] Jan, [facility] [place] [facility] [address] [id number], [place] [address] Jan, [facility] [place] [facility] [address] [id number], [place] [address] Jan, [facility] [place] [facility] [address] [id number], [place] [address] Jan, [facility] [address] [facility] [id number], [place] [address] Nov, [facility] [address] [facility] [id number], [place] [address] Sep, [facility] [address] [facility] [id number], [place] [address] Jul, [facility] [address] [facility] [id number], [place] [address] Apr, IMMUNIZATIONS No Known Immunizations SOCIAL HISTORY Never Assessed REASON FOR VISIT zak/william Cast MA PLAN OF CARE Activity Details Follow Up 6 Weeks Reason: VITAL SIGNS Height 69.75 in 2017-12-01 Weight 186.0 lbs 2017-12-01 Heart Rate 84 bpm 2017-12-01 Respiratory Rate 20 2017-12-01 Oximetry 99 % 2017-12-01 BMI 26.88 kg/m2 2017-12-01 Blood pressure systolic 132 mmHg 2017-12-01 Blood pressure diastolic 70 mmHg 2017-12-01 MEDICATIONS Medication Instructions Dosage Frequency Start Date End Date Duration Status Invega 6 MG TAKE TWO TABLETS BY MOUTH ONCE DAILY Active Clonazepam 1 MG Orally 3 times a day for anxiety 1 tablet Active RESULTS No Results PROCEDURES Procedure Date Ordered Result Body Site [facility] VISIT ESTABLISHED PATIENT Dec 01, 2017 INSTRUCTIONS MEDICATIONS ADMINISTERED No Known Medications MEDICAL (GENERAL) HISTORY Type Description Date Medical History schizophrenic Hospitalization History hospitalized for pneumonia 1982
--- OUTSIDE RECORDS SUMMARY | 2018-01-09 01:03 | XMS REPORT ---
Author Author KALPESH SÁNCHEZ [facility] Address [address] [place] [address] Care Team Providers Care Abrasive Sawyer Name Role Phone DIEGO SÁNCHEZA Unavailable PROBLEMS Type Condition ICD9-CM Code [id number] Code Onset Dates Condition Status SNOMED Code Problem Paranoid schizophrenia F20.0 Active 20006331 Problem Generalized anxiety disorder F41.1 Active 05104218 Problem Encounter for long-term (current) use of other medications Z79.899 Active [id number] ALLERGIES No Information ENCOUNTERS Encounter Location Date Diagnosis [place] [id number] [place] [address]207- 6619 Jan, [facility] [address] [address] Nov, [facility] [id number] [place] [address] 14530- 3131 Nov, Paranoid schizophrenia F20.0 ; Generalized anxiety disorder F41.1 and Encounter for long-term (current) use of other medications Z79.899 [facility] [id number] [place] [address] -8202 Nov, Injury of neck, initial encounter S19.9XXA ; Injury of left knee, initial encounter S89.92XA and Impacted cerumen of left ear H61.22 [facility] [id number] [place] [address] 02154- 9065 Sep, [place] [address] [address] August, Paranoid schizophrenia F20.0 ; Generalized anxiety disorder F41.1 and Encounter for long-term (current) use of other medications Z79.899 [facility] [address], [place] [address] 7[address] August, [facility] [address], [place] [address] 7309 Jul, [facility] [address], [place] [address] 3756 Apr, [facility] [address], [place] [address] 8[address] Mar, Paranoid schizophrenia, chronic condition F20.0 ; Generalized anxiety disorder F41.1 and Encounter for long-term (current) use of other medications Z79.899 [facility] [address], [place] [address]- 9467 Feb, [facility] [address], [place] [address]30 Dec, Paranoid schizophrenia, chronic condition F20.0 ; Generalized anxiety disorder F41.1 and Encounter for long-term (current) use of other medications Z79.899 [facility] [address], [place] [address] Nov, [facility] [address] 114[address] Nov, [facility] [address], [place] [address]- 8025 Nov, [facility] [address], [place] [address]- 0684 Oct, [facility] [address], [place] [address]- 4664 Oct, [facility] [address], [place] [address]- 7050 Sep, [facility] [address], [place] [address]- 2984 Sep, [facility] [address], [place] [address]- 4306 August, [facility] [address], [place] [address]- 8426 May, [facility] [address], [place] [address]- 4916 Mar, Paranoid schizophrenia, chronic condition F20.0 ; Encounter for long-term (current) use of other medications Z79.899 and Generalized anxiety disorder F41.1 [facility] [address] [address]- 5[address] Dec, [facility] [address], [place] [address]- 1126 Nov, Paranoid schizophrenia, chronic condition F20.0 ; Generalized anxiety disorder F41.1 and Encounter for long-term (current) use of other medications Z79.899 [facility] [address], [place] [address]- 6036 Oct, [facility] [address], [place] [address]- 7825 Sep, [facility] [address], [place] [address]- 2086 Sep, [facility] [address], [place] [address]- 0646 August, [facility] [address], [place] [address]- 2166 Jun, [facility] [address], [place] [address]- 0436 May, [facility] [address], [place] [address]- 5446 Apr, Generalized anxiety disorder F41.1 [facility] [address], [place] [address]- 0466 Apr, [facility] [address], [place] [address]- 6196 Mar, [facility] [address], [place] [address]- 7628 Mar, [facility] [id number] [place] [address] 59400- 9576 Feb, [facility] [id number] [place] [address] 05988- 0007 Feb, [facility] [id number] [place] [address] 27131- 6315 Feb, [facility] [id number] [place] [address] 71596- 0393 Jan, Generalized anxiety disorder F41.1 ; Encounter for long- term (current) use of other medications Z79.899 and Paranoid schizophrenia, chronic condition F20.0 [facility] [id number] [place] [address] 54910- 0872 Dec, [facility] [id number] [address]- 6793 Dec, [facility] [id number] [place] [address] 449688- 7603 Dec, [facility] [address], [place] [address]- 5506 Nov, [facility] [address], [place] [address]- 1966 Oct, [facility] [address], [place] [address]- 2546 Oct, [facility] [id number] [place] [address] 88048- 5116 Oct, [facility] [id number] [place] [address] 16940- 6686 August, [facility] [address], [place] [address]- 1836 Jul, [facility] [place] [facility] [address] [id number] [place] [address]- 0467 Jul, [facility] [place] [facility] [address] [id number] [place] [address]- 3421 Jun, [facility] [place] [facility] [address] [id number] [place] [address]- 7540 Jun, [facility] [place] [facility] [address] [id number] [place] [address]- 5552 May, [facility] [place] [facility] [address] [id number] [place] [address]- 7761 May, [facility] [place] [facility] [address] [id number] [place] [address]- 4184 May, [facility] [place] [facility] [address] [id number] [place] [address]- 5719 May, [facility] [place] [facility] [address] [id number] [place] [address]- 3294 Apr, [facility] [place] [facility] [address] [id number] [place] [address]- 8722 Apr, [facility] [place] [facility] [address] [facility] [id number] [place] [address]- 8734 Mar, [facility] [place] [facility] [address] [id number] [place] [address]- 6456 Mar, [facility] [place] [facility] [address] [id number] [place] [address]- 2246 Mar, [facility] [place] [facility] [address] [id number] [place] [address]- 7024 Mar, [facility] [place] [facility] [address] [id number] [place] [address]- 2996 Mar, [facility] [place] [facility] [address] [id number] [place] [address]- 0326 Mar, [facility] [place] [facility] [address] [id number] [place] [address]- 3806 Feb, [facility] [place] [facility] [address] [id number] [place] 9836 Feb, [facility] [place] [facility] [address] [id number] [place] [address]- 9961 Jan, [facility] [place] [facility] [address] [id number] [place] [address]- 2198 Jan, [facility] [place] [facility] [address] [id number] [place] [address]- 1201 Jan, [facility] [place] [facility] [address] [id number] [place] [address]- 5756 Jan, [facility] [place] [facility] [address] [id number] [place] 9271 Dec, [facility] [place] [facility] [address] [id number] [place] [address]- 8844 Dec, [facility] [place] [facility] [address] [id number] [place] [address]- 7008 Nov, [facility] [place] [facility] [address] [id number] [place] [address]- 5399 Nov, [facility] [place] [facility] [address] [id number] [place] [address]- 5399 Nov, [facility] [place] [facility] [address] [id number], [place] [address]- 9472 Nov, [facility] [place] [facility] [address] [id number], [place] [address]- 3242 Oct, [facility] [place] [facility] [address] [id number] [place] [address]- 9675 Oct, [facility] [place] [facility] [address] [id number] [place] [address]- 0341 Oct, [facility] [place] [facility] [address] [id number] [place] [address]- 3386 Oct, [facility] [place] [facility] [address] [id number] [place] [address]- 0049 Sep, [facility] [address] [id number] [place] [address]- 8331 Sep, [facility] [place] [facility] [address] [id number] [place] [address]- 2984 Sep, [facility] [address] [id number] [place] [address]- 6942 Sep, [facility] [place] [facility] [address] [id number] [place] [address]- 1594 Sep, [facility] [address] [id number] [place] [address]- 0933 Sep, [facility] [address] [id number] [place] [address]- 8190 August, [facility] [place] [facility] [address] [id number] [place] [address]- 6807 August, [facility] [address] [id number] [place] [address]- 8290 August, [facility] [place] [facility] [address] [id number] [place] [address]- 7334 Jul, [facility] [address] [id number] [place] [address]- 9892 Jul, [facility] [place] [facility] [address] [id number] [place] [address]- 9847 Jul, [facility] [place] [facility] [address] [id number] [place] [address]- 8079 Jul, [facility] [place] [facility] [address] [id number] [place] [address]- 2463 Jun, [facility] [place] [facility] [address] [id number] [place] [address]- 2696 Jun, [facility] [place] [facility] [address] [id number] [place] [address]- 3766 Jun, [facility] [place] [facility] [address] [id number] [place] [address]- 5751 Jun, [facility] [place] [facility] [address] [id number] [place] [address]- 9446 Jun, [facility] [place] [facility] [address] [id number] [place] [address]- 6210 Jun, [facility] [place] [facility] [address] [id number] [place] [address]- 4487 Jun, [facility] [place] [facility] [address] [id number] [place] [address]- 4713 Jun, [facility] [place] [facility] [address] [id number] [place] [address]- 1425 May, [facility] [place] [facility] [address] [id number] [place] [address]- 9158 May, [facility] [place] [facility] [address] [id number] [place] [address]- 0766 May, [facility] [place] [facility] [address] [id number] [place] [address]- 0828 May, [facility] [place] [facility] [address] [facility] [id number] [place] [address]- 6720 May, [facility] [place] [facility] [address] [id number] [place] [address]- 2550 May, [facility] [place] [facility] [address] [id number] [place] [address]- 7668 May, [facility] [place] [facility] [address] [id number] [place] [address]- 1148 Mar, [facility] [place] [facility] [address] [facility] [id number] [place] [address]- 4526 Mar, [facility] [place] [facility] [address] [facility] [id number] [place] [address]- 6846 Mar, [facility] [place] [facility] [address] [id number] [place] [address]- 8694 Mar, [facility] [address] [id number] [place] [address]- 9912 Mar, [facility] [place] [facility] [address] [id number] [place] [address]- 3391 Mar, [facility] [address] [id number] [place] [address]- 6119 Mar, [facility] [place] [facility] [address] [id number] [place] [address]- 2112 Feb, [facility] [address] [id number] [place] [address]- 1021 Feb, [facility] [address] [id number] [place] [address]- 9772 Feb, [facility] [address] [id number] [place] [address]- 3044 Jan, [facility] [address] [id number] [place] [address]- 5481 Jan, [facility] [address] [id number] [place] [address]- 5010 Jan, [facility] [address] [id number] [place] [address]- 8019 Jan, [facility] [place] [facility] [address] [id number] [place] [address]- 8671 Nov, [facility] [place] [facility] [address] [id number] [place] [address]- 0554 Nov, [facility] [place] [facility] [address] [id number] [place] [address]- 7532 Nov, [facility] [place] [facility] [address] [id number] [place] [address]- 4039 August, [facility] [place] [facility] [address] [id number] [place] [address]- 1159 August, [facility] [address] [id number] [place] [address]- 8896 August, [facility] [address] [id number] [place] [address]- 3692 Jul, [facility] [address] [id number] [place] [address]- 7356 Jul, [facility] [address] [id number] [place] [address]- 2246 Jul, [facility] [address] [id number] [place] [address]- 2454 Jul, [facility] [address] [id number] [place] [address]- 7647 Jun, [facility] [address] [id number] [place] [address]- 4529 Jun, [facility] [address] [id number] [place] [address]- 1623 May, [facility] [address] [id number] [place] [address]- 7307 Apr, [facility] [address] [id number] [place] [address]- 7237 Apr, [facility] [address] [id number] [place] [address]- 6863 Apr, [facility] [address] [id number], [place] [address]- 0838 16 Apr, 2012 [facility] [place] [facility] [address] [id number] [place] [address]- 5396 14 Apr, 2012 [facility] [place] [facility] [address] [id number] [place] [address]- 9926 Apr, [facility] [place] [facility] [address] [id number], [place] [address]- 0794 Apr, [facility] [place] [facility] [address] [id number], [place] [address]- 0789 Apr, [facility] [address] [id number] [place] [address]- 1730 Apr, [facility] [place] [facility] [address] [id number] [place] [address]- 2284 Apr, [facility] [address] [id number] [place] [address]- 6050 Mar, [facility] [address] [id number] [place] [address]- 2066 Mar, [facility] [address] [id number] [place] [address]- 8241 Mar, [facility] [address] [id number] [place] [address]- 1638 Mar, [facility] [address] [id number] [place] [address]- 2512 Mar, [facility] [address] [id number] [place] [address]- 5689 Mar, [facility] [address] [id number] [place] [address]- 1099 18 Mar, 2012 [facility] [address] [facility] [id number] [place] [address]- 3912 Mar, [facility] [address] [id number] [place] [address]- 3823 10 Mar, 2012 [facility] [place] [facility] [address] [id number] [place] [address]- 2716 07 Mar, 2012 [facility] [place] [facility] [address] [id number] [place] [address]- 3382 07 Mar, 2012 [facility] [place] [facility] [address] [id number] [place] [address]- 3253 05 Mar, 2012 [facility] [place] [facility] [address] [facility] [id number] [place] [address]- 8665 Mar, [facility] [place] [facility] [address] [id number] [place] [address]- 2546 Mar, [facility] [place] [facility] [address] [id number] [place] [address]- 9562 Feb, [facility] [place] [facility] [address] [id number] [place] [address]- 2546 Feb, [facility] [place] [facility] [address] [id number] [place] [address]- 2546 Feb, [facility] [place] [facility] [address] [id number] [place] [address]- 2546 Feb, [facility] [place] [facility] [address] [id number] [place] [address]- 9097 Jan, [facility] [place] [facility] [address] [id number] [place] [address]- 4037 Jan, [facility] [place] [facility] [address] [id number] [place] [address]- 1248 Dec, [facility] [place] [facility] [address] [id number] [place] [address]- 3214 Dec, [facility] [place] [facility] [address] [id number] [place] [address]- 0762 Dec, [facility] [place] [facility] [address] [id number] [place] [address]- 8641 Nov, [facility] [place] [facility] [address] [id number] [place] [address]- 9656 Nov, [facility] [place] [facility] [address] [id number] [place] [address]- 2546 Oct, [facility] [place] [facility] [address] [id number] [place] [address]- 0296 Sep, [facility] [place] [facility] [address] [id number] [place] [address]- 2546 Sep, [facility] [place] [facility] [address] [id number] [place] [address]- 0828 August, [facility] [place] [facility] [address] [id number] [place] [address]- 0882 August, [facility] [place] [facility] [address] [id number] [place] [address]- 5800 Jul, [facility] [place] [facility] [address] [id number] [place] [address]- 4440 Jul, [facility] [place] [facility] [address] [id number] [place] [address]- 2936 Jun, [facility] [place] [facility] [address] [id number] [place] [address]- 8024 Jun, [facility] [place] [facility] [address] [id number] [place] [address]- 3719 Jun, [facility] [place] [facility] [address] [id number] [place] [address]- 1377 Jun, [facility] [place] [facility] [address] [id number] [place] [address]- 4489 May, [facility] [place] [facility] [address] [id number] [place] [address] May, [facility] [place] [facility] [address] [id number] [place] [address] May, [facility] [place] [facility] [address] [id number] [place] [address] May, [facility] [place] [facility] [address] [id number] [place] [address] May, [facility] [place] [facility] [address] [id number] [place] [address] Apr, [facility] [place] [facility] [address] [id number] [place] [address] Apr, [facility] [place] [facility] [address] [id number] [place] [address] Apr, [facility] [place] [facility] [address] [id number] [place] [address] 17 Apr, 2011 [facility] [address] [id number] [place] [address] Apr, [facility] [place] [facility] [address] [id number] [place] [address] Apr, [facility] [address] [id number] [place] [address] Apr, [facility] [place] [facility] [address] [id number] [place] [address] Mar, [facility] [address] [id number] [place] [address] Feb, [facility] [place] [facility] [address] [id number] [place] [address] Feb, [facility] [place] [facility] [address] [id number] [place] [address] Feb, [facility] [address] [id number] [place] [address] Feb, [facility] [place] [facility] [address] [id number] [place] [address] Feb, [facility] [address] [id number] [place] [address] Jan, [facility] [place] [facility] [address] [id number] [place] [address] Jan, [facility] [place] [facility] [address] [id number] [place] [address] Jan, [facility] [place] [facility] [address] [id number] [place] [address] Jan, [facility] [place] [facility] [address] [id number] [place] [address] Nov, [facility] [place] [facility] [address] [id number] [place] [address] Sep, [facility] [address] [facility] [id number] [place] [id number] Jul, [facility] [address] [facility] [id number] [place] [address] Apr, IMMUNIZATIONS No Known Immunizations SOCIAL HISTORY Never Assessed REASON FOR VISIT klonopin refill PLAN OF CARE VITAL SIGNS MEDICATIONS Medication Instructions Dosage Frequency Start Date End Date Duration Status Clonazepam 1 MG Orally 3 times a day for anxiety 1 tablet 30 days Active RESULTS No Results PROCEDURES No Known procedures INSTRUCTIONS MEDICATIONS ADMINISTERED No Known Medications MEDICAL (GENERAL) HISTORY Type Description Date Medical History schizophrenic
--- OUTSIDE RECORDS SUMMARY | 2018-01-09 01:03 | XMS REPORT ---
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 Name Role Phone PRINCESSJESSYKALPESH Unavailable PROBLEMS Type Condition ICD9-CM Code UAF32-YQ Code Onset Dates Condition Status SNOMED Code Problem Paranoid schizophrenia F20.0 Active 62773680 Problem Generalized anxiety disorder F41.1 Active 68362342 Problem Encounter for long-term (current) use of other medications Z79.899 Active [id number] ALLERGIES No Information ENCOUNTERS Encounter Location Date Diagnosis [place] [id number] [place] [address] 10659- 9839 Nov, [facility] [address] [address] Nov, [facility] [id number] [place] [address]88 -4695 Nov, Injury of neck, initial encounter S19.9XXA ; Injury of left knee, initial encounter S89.92XA and Impacted cerumen of left ear H61.22 [place] [id number] [place] [address] 38638- 3198 Sep, [facility] [id number] [place] [address] 40418- 4276 August, Paranoid schizophrenia F20.0 ; Generalized anxiety disorder F41.1 and Encounter for long-term (current) use of other medications Z79.899 [facility] [id number] [place] [address] 03447- 9962 August, [facility] [id number] [place] [address] 94066- 2947 Jul, [facility] [id number] [place] [address] 2546 Apr, [facility] [id number] [address] Mar, Paranoid schizophrenia, chronic condition F20.0 ; Generalized anxiety disorder F41.1 and Encounter for long-term (current) use of other medications Z79.899 [facility] [id number] [place] [address] 3[address] Feb, [facility] [address] [facility] [id number] [address] Dec, Paranoid schizophrenia, chronic condition F20.0 ; Generalized anxiety disorder F41.1 and Encounter for long-term (current) use of other medications Z79.899 [facility] [id number] [address] Nov, [facility] [id number] [address] 6[address] Nov, [facility] [id number] [place] [address]- 6469 Nov, [facility] [id number] [address] 4316 Oct, [facility] [id number] [place] [address]- 2266 Oct, [facility] [id number] [address]- 2546 Sep, [facility] [id number] [place] [address]- 7976 Sep, [facility] [id number] [place] [address]- 2546 August, [facility] [id number] [address] 2546 May, [facility] [address] [address] 1106 Mar, Paranoid schizophrenia, chronic condition F20.0 ; Encounter for long-term (current) use of other medications Z79.899 and Generalized anxiety disorder F41.1 [facility] [address] [address]- 9990 Dec, [facility] [id number] [address]- 7716 Nov, Paranoid schizophrenia, chronic condition F20.0 ; Generalized anxiety disorder F41.1 and Encounter for long-term (current) use of other medications Z79.899 [facility] [address] [id number] [place] [address]- 1686 Oct, [facility] [address] [address]- 1326 Sep, [facility] [address] [address]- 1366 Sep, [facility] [id number] [place] [address]- 0325 August, [facility] [id number] [place] [address]- 2926 Jun, [facility] [id number] [address]- 6421 May, [facility] [address]005[address] [address]- 2776 Apr, Generalized anxiety disorder F41.1 [facility] [id number] [place] [address]- 5256 Apr, [facility] [id number] [place] [address]- 4296 Mar, [facility] [id number] [place] [address]- 9196 Mar, [facility] [address] [address] [address] Feb, [facility] [address] [address]- 1445 Feb, [facility] [id number] [place] [address] 96726- 2879 Feb, [facility] [address] [address] Jan, Generalized anxiety disorder F41.1 ; Encounter for long- term (current) use of other medications Z79.899 and Paranoid schizophrenia, chronic condition F20.0 [facility] [id number] [place] [address] 18250- 5356 Dec, [facility] [id number] [place] [address] 14716- 5147 Dec, [facility] [id number] [place] [address] 46684- [address] Dec, [facility] [id number] [address]- 5123 Nov, [facility] [id number] [place] [address] 47618- [address] Oct, [facility] [id number] [address] [address]247 Oct, [facility] [address]005[address], [place] [address]- [address] Oct, [facility] [address] [address]- [address] August, [facility] [address] [address]- 3864 14 Jul, [address] [facility] [address] [id number] [address]- [address] Jul, [facility] [address] [address]- 6880 Jun, [facility] [place] [facility] [address] [id number] [place] [address]- 9751 Jun, [facility] [place] [facility] [address] [id number] [place] [address]- 9344 May, [facility] [place] [facility] [address] [id number] [place] [address]- 1856 May, [facility] [place] [facility] [address] [id number] [place] [address]- 1656 May, [facility] [place] [facility] [address] [id number] [place] [address]- 7380 May, [facility] [place] [facility] [address] [id number] [place] [address]- 8889 Apr, [facility] [place] [facility] [address] [id number] [place] [address]- 8856 Apr, [facility] [place] [facility] [address] [id number] [place] [address]- 8489 Mar, [facility] [place] [facility] [address] [id number] [place] [address]- 2990 Mar, [facility] [place] [facility] [address] [id number] [place] [address]- 2708 Mar, [facility] [place] [facility] [address] [id number] [place] [address]- 9663 Mar, [facility] [place] [facility] [address] [id number] [place] [address]- 8892 Mar, [facility] [place] [facility] [address] [id number] [place] [address]- 4468 Mar, [facility] [place] [facility] [address] [id number] [place] [address]- 6384 Feb, [facility] [place] [facility] [address] [id number] [place] [address]- 9565 Feb, [facility] [place] [facility] [address] [id number] [place] [address]- 0385 Jan, [facility] [place] [facility] [address] [id number] [place] [address]- 1189 Jan, [facility] [place] [facility] [address] [id number] [place] [address]- 1063 Jan, [facility] [place] [facility] [address] [id number] [place] [address]- 6646 Jan, [facility] [place] [facility] [address] [id number] [place] [address]- 7566 Dec, [facility] [place] [facility] [address] [id number] [place] 1337 Dec, [facility] [place] [facility] [address] [id number] [place] [address]- 1502 Nov, [facility] [place] [facility] [address] [id number] [place] [address]- 4811 Nov, [facility] [place] [facility] [address] [id number] [place] [address]- 1307 Nov, [facility] [place] [facility] [address] [id number] [place] [address]- 1747 Nov, [facility] [place] [facility] [address] [id number] [place] [address]- 4954 Oct, [facility] [place] [facility] [address] [id number] [address]- 0762 Oct, [facility] [place] [facility] [address] [id number], [place] [address]- 8889 Oct, [facility] [place] [facility] [address] [id number] [place] [address]- 0502 Oct, [facility] [place] [facility] [address] [id number] [place] [address]- 1813 Sep, [facility] [place] [facility] [address] [id number] [place] [address]- 8509 Sep, [facility] [place] [facility] [address] [id number] [place] [address]- 1908 Sep, [facility] [address] [id number] [place] [address]- 6387 Sep, [facility] [place] [facility] [address] [id number] [place] [address]- 0635 Sep, [facility] [address] [id number] [place] [address]- 1121 Sep, [facility] [place] [facility] [address] [id number] [place] [address]- 2593 August, [facility] [address] [id number] [place] [address]- 1618 August, [facility] [place] [facility] [address] [id number] [place] [address]- 8652 August, [facility] [address] [id number] [place] [address]- 2369 Jul, [facility] [address] [id number] [place] [address]- 4027 Jul, [facility] [place] [facility] [address] [id number] [place] [address]- 8903 Jul, [facility] [address] [id number] [place] [address]- 1001 Jul, [facility] [place] [facility] [address] [id number] [place] [address]- 1154 Jun, [facility] [place] [facility] [address] [id number] [place] [address]- 2306 Jun, [facility] [place] [facility] [address] [id number] [place] [address]- 4656 Jun, [facility] [place] [facility] [address] [id number] [place] [address]- 6735 Jun, [facility] [place] [facility] [address] [id number] [place] [address]- 9903 Jun, [facility] [place] [facility] [address] [id number] [place] [address]- 6906 18 Jun, 2013 [facility] [place] [facility] [address] [id number] [place] [address]- 1582 Jun, [facility] [place] [facility] [address] [id number] [place] [address]- 4559 Jun, [facility] [place] [facility] [address] [id number] [place] [address]- 3607 May, [facility] [place] [facility] [address] [id number] [place] [address]- 5771 May, [facility] [place] [facility] [address] [id number] [place] [address]- 5216 May, [facility] [place] [facility] [address] [id number] [place] [address]- 7669 May, [facility] [place] [facility] [address] [id number] [place] [address]- 4887 May, [facility] [place] [facility] [address] [id number] [place] [address]- 7533 May, [facility] [place] [facility] [address] [id number] [place] [address]- 2530 May, [facility] [place] [facility] [address] [id number] [place] [address]- 8981 Mar, [facility] [place] [facility] [address] [id number] [place] [address]- 3936 30 Mar, 2013 [facility] [place] [facility] [address] [id number] [place] [address]- 3268 23 Mar, 2013 [facility] [place] [facility] [address] [id number] [place] [address]- 7026 18 Mar, 2013 [facility] [place] [facility] [address] [id number] [place] [address]- 0807 Mar, [facility] [place] [facility] [address] [id number] [place] [address]- 8039 Mar, [facility] [address] [id number] [place] [address]- 5570 Mar, [facility] [place] [facility] [address] [id number] [place] [address]- 5537 Feb, [facility] [place] [facility] [address] [id number] [place] [address]- 0459 Feb, [facility] [place] [facility] [address] [id number] [place] [address]- 8730 Feb, [facility] [place] [facility] [address] [id number] [place] 9082 Jan, [facility] [place] [facility] [address] [id number] [place] [address]- 4802 Jan, [facility] [place] [facility] [address] [id number] [place] [address]- 3378 Jan, [facility] [place] [facility] [address] [id number] [place] [address]- 3859 Jan, [facility] [place] [facility] [address] [id number] [place] [address]- 7458 Nov, [facility] [place] [facility] [address] [id number] [place] [address]- 2262 Nov, [facility] [place] [facility] [address] [id number] [place] [address]- 2358 Nov, [facility] [place] [facility] [address] [id number] [place] [address]- 6978 August, [facility] [place] [facility] [address] [id number] [place] [address]- 3302 August, [facility] [place] [facility] [address] [id number] [place] [address]- 9335 August, [facility] [place] [facility] [address] [id number] [place] [address]- 8894 Jul, [facility] [place] [facility] [address] [id number] [place] [address]- 8031 10 Jul, 2012 [facility] [address] [id number] [place] [address]- 7117 09 Jul, 2012 [facility] [address] [id number] [place] [address]- 6154 08 Jul, 2012 [facility] [address] [id number] [place] [address]- 2642 14 Jun, 2012 [facility] [address] [id number] [place] [address]- 6156 Jun, [facility] [address] [id number] [place] [address]- 9722 18 May, [address] [facility] [address] [id number] [place] [address]- 9719 Apr, [facility] [address] [id number] [place] [address]- [address] Apr, [facility] [address] [id number] [place] [address]- 5352 Apr, [facility] [address] [id number] [place] [address]- [address] Apr, [facility] [address] [id number] [place] [address]- 2037 14 Apr, 2012 [facility] [address] [id number] [place] [address]- 6032 Apr, [facility] [address] [id number] [place] [address]- 3033 Apr, [facility] [place] [facility] [address] [id number] [place] [address]- 6893 Apr, [facility] [place] [facility] [address] [id number] [place] [address]- 5696 Apr, [facility] [address] [id number] [place] [address]- 5462 Apr, [facility] [address] [id number] [place] [address]- 2686 Mar, [facility] [place] [facility] [address] [id number] [place] [address]- 6476 Mar, [facility] [place] [facility] [address] [id number] [place] [address]- 2166 Mar, [facility] [place] [facility] [address] [id number] [place] [address]- 2656 Mar, [facility] [place] [facility] [address] [id number] [place] [address]- 6926 Mar, [facility] [place] [facility] [address] [id number] [place] [address]- 0764 Mar, [facility] [address] [id number] [place] [address]- 1217 18 Mar, 2012 [facility] [place] [facility] [address] [id number] [place] [address]- 0495 Mar, [facility] [place] [facility] [address] [id number] [place] [address]- 4533 Mar, [facility] [place] [facility] [address] [id number] [place] [address]- 6196 07 Mar, 2012 [facility] [place] [facility] [address] [id number] [place] [address]- 2424 07 Mar, 2012 [facility] [place] [facility] [address] [id number] [place] [address]- 8228 05 Mar, 2012 [facility] [place] [facility] [address] [id number] [place] [address]- 3536 Mar, [facility] [place] [facility] [address] [id number] [place] [address]- 0116 Mar, [facility] [place] [facility] [address] [id number] [place] [address]- 0393 Feb, [facility] [place] [facility] [address] [id number] [place] [address] 2546 Feb, [facility] [place] [facility] [address] [id number] [place] [address]- 5436 Feb, [facility] [place] [facility] [address] [id number] [place] [address]- 2546 Feb, [facility] [place] [facility] [address] [id number] [place] [address]- 3066 Jan, [facility] [place] [facility] [address] [id number] [place] [address] 2548 Jan, [facility] [place] [facility] [address] [id number] [place] [address]- 8281 Dec, [facility] [place] [facility] [address] [id number] [place] [address]- 0706 Dec, [facility] [place] [facility] [address] [id number] [place] [address]- 1406 Dec, [facility] [place] [facility] [address] [id number] [place] [address]- 6737 Nov, [facility] [place] [facility] [address] [id number] [place] [address]- 7646 Nov, [facility] [place] [facility] [address] [id number] [place] [address] 2544 Oct, [facility] [place] [facility] [address] [id number] [place] [address]- 2546 Sep, [facility] [place] [facility] [address] [id number] [place] [address]- 2546 Sep, [facility] [place] [facility] [address] [id number] [place] [address]- 2546 August, [facility] [place] [facility] [address] [id number] [place] [address]- 2546 August, [facility] [place] [facility] [address] [id number] [place] [address]- 0681 Jul, [facility] [place] [facility] [address] [id number] [place] [address]- 9934 Jul, [facility] [place] [facility] [address] [id number] [place] [address] Jun, [facility] [place] [facility] [address] [id number] [place] [address] Jun, [facility] [place] [facility] [address] [id number] [place] [address] Jun, [facility] [place] [facility] [address] [id number] [place] [address] Jun, [facility] [place] [facility] [address] [id number] [place] [address] May, [facility] [place] [facility] [address] [id number] [place] [address] May, [facility] [place] [facility] [address] [id number] [place] [address] May, [facility] [place] [facility] [address] [id number] [place] [address] May, [facility] [place] [facility] [address] [id number] [place] [address] May, [facility] [place] [facility] [address] [id number] [place] [address] Apr, [facility] [place] [facility] [address] [id number] [place] [address] Apr, [facility] [place] [facility] [address] [id number] [place] [address] Apr, [facility] [place] [facility] [address] [id number] [place] [address] Apr, [facility] [place] [facility] [address] [id number] [place] [address] Apr, [facility] [place] [facility] [address] [id number] [place] [address] Apr, [facility] [address] [id number] [place] [address] Apr, [facility] [address] [id number] [place] [address] Mar, [facility] [address] [id number] [place] [address] [address] Feb, [facility] [address] [id number] [place] [address] Feb, [facility] [id number] [place] [address], [place] [address] Feb, [facility] [address] [facility] [id number] [place] [address] Feb, [facility] [address] [id number] [place] [address] Feb, [facility] [address] [id number] [place] [address] Jan, [facility] [address] [id number] [place] [address] Jan, [facility] [address] [facility] [id number] [place] [address] Jan, [facility] [address] [facility] [id number] [place] [address] Jan, [facility] [address] [facility] [id number] [place] [address] Nov, [facility] [address] [facility] [id number] [place] [address] Sep, [facility] [address] [facility] [id number] [place] [address] Jul, [facility] [address] [facility] [id number] [address] Apr, IMMUNIZATIONS No Known Immunizations SOCIAL HISTORY Never Assessed REASON FOR VISIT Psychiatric f/u-Nasima [place] PLAN OF CARE Activity Details Follow Up 3 Months Reason: VITAL SIGNS Height 69.75 in 2017-09-01 Weight 185.3 lbs 2017-09-01 Heart Rate 108 bpm 2017-09-01 Respiratory Rate 18 2017-09-01 BMI 26.78 kg/m2 2017-09-01 Blood pressure systolic 132 mmHg 2017-09-01 Blood pressure diastolic 80 mmHg 2017-09-01 MEDICATIONS Medication Instructions Dosage Frequency Start Date End Date Duration Status Prozac 20 mg Orally in the morning for depression 1 capsule Mar, Not-Taking Clonazepam 1MG Orally 3 times a day for anxiety. MUST be seen for any future refill 1 tablet Not-Taking Metoprolol Tartrate 25 MG Orally 1 tab in the AM for one week then increase to 1 tab twice a day for panic 1 tablet with food Mar, Not- Taking Clonazepam 1 MG Orally 3 times a day for anxiety 1 tablet Active Invega 6 MG Orally Once a day TAKE TWO TABLETS BY MOUTH ONCE DAILY 24h Active RESULTS No Results PROCEDURES Procedure Date Ordered Result Body Site [facility] VISIT ESTABLISHED PATIENT September 01, 2017 INSTRUCTIONS MEDICATIONS ADMINISTERED No Known Medications MEDICAL (GENERAL) HISTORY Type Description Date Medical History schizophrenic
--- OUTSIDE RECORDS SUMMARY | 2018-01-09 01:04 | XMS REPORT ---
Author Author PRINCESS KALPESH [facility] Address [address] [place] [address] Care Team Providers Care Principal Data Architect Name Role Phone KALPESH SÁNCHEZ Unavailable PROBLEMS Type Condition ICD9-CM Code [id number] Code Onset Dates Condition Status SNOMED Code Problem Paranoid schizophrenia F20.0 Active 50535275 Problem Generalized anxiety disorder F41.1 Active 60784087 Problem Other psoriasis 696.1 Active 0240448 Problem Encounter for long-term (current) use of other medications Z79.899 Active 630162878 Problem Paranoid schizophrenia, chronic condition with acute exacerbation 295.34 Active 021978374 ALLERGIES No Information ENCOUNTERS Encounter Location Date Diagnosis [facility] [id number] [place] [address]73- 4303 Nov, [facility] [id number] [address] Sep, [facility] [id number] [place] [address] 39872- 8235 August, Paranoid schizophrenia F20.0 ; Generalized anxiety disorder F41.1 and Encounter for long-term (current) use of other medications Z79.899 [facility] [address] [address] August, [facility] [address] [address] 5761 Jul, [facility] [id number] [place] [address] 93176- 9274 Apr, [facility] [address] [address] Mar, Paranoid schizophrenia, chronic condition F20.0 ; Generalized anxiety disorder F41.1 and Encounter for long-term (current) use of other medications Z79.899 [facility] [address] [facility] [id number] [address] 0[address] Feb, [facility] [address] [id number] [address] 2216 Dec, Paranoid schizophrenia, chronic condition F20.0 ; Generalized anxiety disorder F41.1 and Encounter for long-term (current) use of other medications Z79.899 [facility] [address] [facility] [id number] [place] [address] Nov, [facility] [address] [facility] [id number] [place] [address]- 0109 Nov, [facility] [address] [id number] [place] [address] 1109 Nov, [facility] [id number] [place] [address] 0477 Oct, [facility] [address] [id number] [place] [address]- 5657 Oct, [facility] [address] [id number] [place] [address]- 7191 Sep, [facility] [address] [id number] [address] 3919 Sep, [facility] [address] [address]- 8716 August, [facility] [address] [id number] [address]- 7746 May, [facility] [address] [id number] [address] 9041 Mar, Paranoid schizophrenia, chronic condition F20.0 ; Encounter for long-term (current) use of other medications Z79.899 and Generalized anxiety disorder F41.1 [facility] [address] [id number] [address] Dec, [facility] [address] [address]- 5921 Nov, Paranoid schizophrenia, chronic condition F20.0 ; Generalized anxiety disorder F41.1 and Encounter for long-term (current) use of other medications Z79.899 [facility] [address] [id number] [address]- 0116 Oct, [facility] [id number] [place] [address] 81959- 6146 Sep, [facility] [id number] [place] [address] 59427- 7506 Sep, [facility] [id number] [place] [address] 19285- 4564 August, [facility] [id number] [place] [address] 34371- 7532 Jun, [facility] [id number] [place] [address] 19668- 4654 May, [facility] [id number] [place] [address] 204669- 9495 Apr, Generalized anxiety disorder F41.1 [facility] [address]005[address] 1807 Apr, [facility] [address]00565[address] [address]- 6173 Mar, [facility] [address] [id number] [address]- 9133 Mar, [facility] [address] [id number] [address]- 9329 Feb, [facility] [address] [id number] [address]- 2536 Feb, [facility] [address]00565[address] [address]- 5595 Feb, [facility] [address]00565[address] [address]- 8461 Jan, Generalized anxiety disorder F41.1 ; Encounter for long- term (current) use of other medications Z79.899 and Paranoid schizophrenia, chronic condition F20.0 [facility] [address]005[address] [address]- 1622 Dec, [facility] [address] [facility] [id number] [place] [address] 03896- 6437 Dec, [facility] [address] [id number] [address]- 8350 Dec, [facility] [address] [id number] [address]- 3706 Nov, [facility] [address]00565[address] [address]- 4838 Oct, [facility] [address] [id number] [address]- 6431 Oct, [facility] [address] [id number] [address]- 5978 Oct, [facility] [address]00565[address] [address]- 9031 August, [facility] [address]00565[address] [address]- 3945 Jul, [facility] [address] [id number] [address]- 5989 Jul, [facility] [address] [id number] [address]- 2406 Jun, [facility] [address]00565[address] [address]- 6036 Jun, [facility] [address] [id number] [address]- 2946 May, [facility] [id number] [place] [address], [place] [address]- 0956 May, [facility] [place] [facility] [address] [id number] [place] [address]- 6265 May, [facility] [place] [facility] [address] [id number] [place] May, [facility] [place] [facility] [address] [id number] [place] [address]- 7093 Apr, [facility] [place] [facility] [address] [id number] [place] [address]- 4856 Apr, [facility] [place] [facility] [address] [id number] [place]37 Mar, [facility] [place] [facility] [address] [id number] [place] [address]- 5347 Mar, [facility] [place] [facility] [address] [id number] [place] [address]- 3952 Mar, [facility] [place] [facility] [address] [facility] [id number] [place] [address]- 5892 Mar, [facility] [place] [facility] [address] [id number] [place] [address]- 9176 Mar, [facility] [place] [facility] [address] [facility] [id number] [place] [address]- 5107 Mar, [facility] [place] [facility] [address] [id number] [place] [address]- 1428 Feb, [facility] [place] [facility] [address] [id number] [place] [address]- 2775 Feb, [facility] [place] [facility] [address] [id number] [place] [address]- 4190 Jan, [facility] [place] [facility] [address] [id number] [place] [address]- 3349 Jan, [facility] [place] [facility] [address] [id number] [place] [address]- 9552 Jan, [facility] [place] [facility] [address] [id number] [place] [address]- 5170 Jan, [facility] [place] [facility] [address] [id number] [place] 8610 Dec, [facility] [place] [facility] [address] [id number] [place] [address]- 8361 Dec, [facility] [place] [facility] [address] [id number] [place] [address]- 2640 Nov, [facility] [place] [facility] [address] [id number] [place] [address]- 2354 Nov, [facility] [place] [facility] [address] [id number] [place] [address]- 4245 Nov, [facility] [place] [facility] [address] [id number] [place] [address]- 4048 Nov, [facility] [place] [facility] [address] [id number] [place] [address]- 7839 Oct, [facility] [place] [facility] [address] [id number] [place] [address]- 9152 Oct, [facility] [place] [facility] [address] [id number] [place] [address]- 8208 Oct, [facility] [place] [facility] [address] [id number] [place] [address]- 9043 Oct, [facility] [place] [facility] [address] [id number] [place] [address]- 8203 Sep, [facility] [place] [facility] [address] [id number] [place] [address]- 4503 Sep, [facility] [place] [facility] [address] [id number] [place] [address]- 5724 Sep, [facility] [place] [facility] [address] [id number] [place] [address]- 1005 Sep, [facility] [place] [facility] [address] [id number] [place] [address]- 8554 Sep, [facility] [place] [facility] [address] [id number] [place] [address]- 5965 Sep, [facility] [place] [facility] [address] [id number] [place] [address]- 7778 August, [facility] [place] [facility] [address] [id number] [place] [address]- 0264 August, [facility] [place] [facility] [address] [id number] [place] [address]- 2580 August, [facility] [place] [facility] [address] [id number] [place] [address]- 0481 Jul, [facility] [place] [facility] [address] [id number] [place] [address]- 1616 Jul, [facility] [place] [facility] [address] [id number] [place] [address]- 1709 Jul, [facility] [place] [facility] [address] [id number] [place] [address]- 3249 Jul, [facility] [place] [facility] [address] [id number] [place] [address]- 1031 Jun, [facility] [place] [facility] [address] [id number] [place] [address]- 5512 Jun, [facility] [place] [facility] [address] [id number] [place] [address]- 8890 Jun, [facility] [place] [facility] [address] [id number] [place] [address]- 3452 Jun, [facility] [place] [facility] [address] [id number] [place] [address]- 1253 Jun, [facility] [place] [facility] [address] [id number] [place] [address]- 0935 Jun, [facility] [place] [facility] [address] [id number] [place] [address]- 5470 Jun, [facility] [place] [facility] [address] [id number] [place] [address]- 0308 Jun, [facility] [place] [facility] [address] [id number] [place] [address]- 4496 May, 2013 [facility] [place] [facility] [address] [id number] [place] [address]- 0616 May, 2013 [facility] [place] [facility] [address] [id number] [place] [address]- 3296 May, 2013 [facility] [place] [facility] [address] [id number] [place] [address] 2544 May, 2013 [facility] [place] [facility] [address] [id number] [place] [address]- 7196 May, 2013 [facility] [place] [facility] [address] [facility] [id number] [place] 5659 May, [facility] [place] [facility] [address] [facility] [id number] [place] [address]- 2512 May, [facility] [place] [facility] [address] [id number] [place] [address]- 7281 Mar, [facility] [place] [facility] [address] [facility] [id number] [place] [address]- 5318 30 Mar, 2013 [facility] [place] [facility] [address] [id number] [place] [address]- 3702 23 Mar, 2013 [facility] [place] [facility] [address] [id number] [place] [address] 2546 18 Mar, 2013 [facility] [place] [facility] [address] [id number] [place] [address]- 6226 18 Mar, 2013 [facility] [place] [facility] [address] [id number] [place] [address]- 2546 Mar, [facility] [place] [facility] [address] [id number] [place] 8663 10 Mar, 2013 [facility] [place] [facility] [address] [id number] [place] [address]- 8858 Feb, [facility] [place] [facility] [address] [id number] [place] [address]- 7796 Feb, [facility] [place] [facility] [address] [id number] [place] [address]- 0255 Feb, [facility] [place] [facility] [address] [id number] [place] [address]- 7335 Jan, [facility] [place] [facility] [address] [id number] [place] [address]- 8148 Jan, [facility] [place] [facility] [address] [id number] [place] [address]- 9143 Jan, [facility] [place] [facility] [address] [id number] [place] [address]- 2159 Jan, [facility] [place] [facility] [address] [id number] [place] [address]- 1427 Nov, [facility] [place] [facility] [address] [id number] [place] [address]- 6161 Nov, [facility] [place] [facility] [address] [id number] [place] [address]- 9840 Nov, [facility] [place] [facility] [address] [id number] [place] [address]- 9055 August, [facility] [place] [facility] [address] [id number] [place] [address]- 2264 August, [facility] [place] [facility] [address] [id number] [place] [address]- 8407 August, [facility] [place] [facility] [address] [id number] [place] [address]- 6035 Jul, [facility] [place] [facility] [address] [id number] [place] [address]- 5036 Jul, [facility] [place] [facility] [address] [id number] [place] [address]- 2795 Jul, [facility] [place] [facility] [address] [id number] [place] [address] 2546 08 Jul, 2012 [facility] [address] [id number] [place] [address]- 2970 14 Jun, 2012 [facility] [address] [id number] [place] [address] 2546 07 Jun, 2012 [facility] [address] [id number] [place] [address]- 2671 18 May, 2012 [facility] [address] [id number] [place] [address]- 2059 Apr, [facility] [address] [id number] [place] [address]- 6666 Apr, [facility] [address] [id number] [place] [address]- 7120 Apr, [facility] [address] [id number] [place] [address]- 2720 16 Apr, 2012 [facility] [address] [id number] [place] [address]- 2687 14 Apr, 2012 [facility] [address] [id number] [place] [address]- 4611 Apr, [facility] [address] [id number] [place] [address]- 0798 Apr, [facility] [address] [id number] [place] [address]- 7293 Apr, [facility] [address] [id number] [place] [address]- 3591 Apr, [facility] [address] [id number] [place] [address]- 9658 Apr, [facility] [address] [id number] [place] [address]- 9206 Mar, [facility] [address] [id number] [place] [address]- 3399 Mar, [facility] [place] [facility] [address] [id number] [place] [address]- 0321 Mar, [facility] [place] [facility] [address] [id number] [place] [address]- 1196 Mar, [facility] [place] [facility] [address] [id number] [place] [address]- 2507 Mar, [facility] [place] [facility] [address] [id number] [place] [address]- 1281 Mar, [facility] [place] [facility] [address] [id number] [place] [address]- 9455 Mar, [facility] [place] [facility] [address] [id number] [place] [address]- 1727 Mar, [facility] [place] [facility] [address] [id number] [place] [address]- 9322 Mar, [facility] [place] [facility] [address] [id number] [place] [address]- 6320 Mar, [facility] [place] [facility] [address] [id number] [place] [address]- 1251 Mar, [facility] [place] [facility] [address] [id number] [place] [address]- 2689 Mar, [facility] [place] [facility] [address] [id number] [place] [address]- 4508 Mar, [facility] [place] [facility] [address] [id number] [place] [address]- 9899 Mar, [facility] [place] [facility] [address] [id number] [place] [address]- 6557 Feb, [facility] [place] [facility] [address] [id number] [place] [address]- 8636 Feb, [facility] [place] [facility] [address] [id number] [place] [address]- 3447 Feb, [facility] [place] [facility] [address] [id number] [place] [address]- 4435 Feb, [facility] [place] [facility] [address] [id number] [place] [address]- 4690 Jan, [facility] [place] [facility] [address] [id number] [place] [address]- 9916 Jan, [facility] [place] [facility] [address] [id number] [place] [address] 2546 Dec, [facility] [place] [facility] [address] [id number] [place] [address] 2548 Dec, [facility] [place] [facility] [address] [id number] [place] [address]- 9627 Dec, [facility] [place] [facility] [address] [id number] [place] [address]- 3239 Nov, [facility] [place] [facility] [address] [id number] [place] [address]- 2289 Nov, [facility] [place] [facility] [address] [id number] [place] [address]- 2094 Oct, [facility] [place] [facility] [address] [id number] [place] [address]- 8292 Sep, [facility] [place] [facility] [address] [id number] [place] [address]- 8916 Sep, [facility] [place] [facility] [address] [id number] [place] [address]- 6456 August, [facility] [place] [facility] [address] [id number] [place] [address]- 2546 August, [facility] [place] [facility] [address] [id number] [place] [address]- 7843 Jul, [facility] [place] [facility] [address] [id number] [place] [address] 2546 Jul, [facility] [place] [facility] [address] [id number] [place] [address]- 6416 Jun, [facility] [place] [facility] [address] [id number] [place] [address]- 0202 Jun, [facility] [place] [facility] [address] [id number] [place] [address]- 9536 Jun, [facility] [place] [facility] [address] [id number] [place] [address]506 Jun, [facility] [place] [facility] [address] [id number] [place] [address]- 0644 May, [facility] [place] [facility] [address] [id number] [place] [address]- 2117 May, [facility] [place] [facility] [address] [id number] [place] [address]- 6562 May, [facility] [place] [facility] [address] [id number] [place] [address] May, [facility] [place] [facility] [address] [id number] [place] [address] May, [facility] [place] [facility] [address] [id number] [place] [address] Apr, [facility] [place] [facility] [address] [id number] [place] [address] Apr, [facility] [place] [facility] [address] [id number] [place] [address] Apr, [facility] [place] [facility] [address] [id number] [place] [address] Apr, [facility] [place] [facility] [address] [id number] [place] [address] Apr, [facility] [place] [facility] [address] [id number] [place] [address] Apr, [facility] [place] [facility] [address] [id number] [place] [address] Apr, [facility] [place] [facility] [address] [id number] [place] [address] Mar, [facility] [address] [facility] [id number] [place] [address] Feb, [facility] [address] [facility] [id number] [place] [address] Feb, [facility] [address] [id number] [address] Feb, [facility] [address] [facility] [id number] [place] [address] Feb, [facility] [address] [facility] [id number] [place] [address] Feb, [facility] [id number] [place] [address] Jan, [facility] [id number] [place] [address] Jan, [facility] [id number] [address] Jan, [facility] [id number] [address] Jan, [facility] [id number] [address] Nov, [facility] [id number] [address] Sep, [facility] [id number] [address] Jul, [facility] [id number] [address] Apr, IMMUNIZATIONS No Known Immunizations SOCIAL HISTORY Never Assessed REASON FOR VISIT klonoanna refill PLAN OF CARE VITAL SIGNS MEDICATIONS Medication Instructions Dosage Frequency Start Date End Date Duration Status Clonazepam 1MG Orally 3 times a day for anxiety 1 tablet Active RESULTS No Results PROCEDURES No Known procedures INSTRUCTIONS MEDICATIONS ADMINISTERED No Known Medications
--- OUTSIDE RECORDS SUMMARY | 2018-01-09 01:04 | XMS REPORT ---
Author Author PRINCESS KALPESH [facility] Address [address] [place] [address] Care Team Providers Care Kier Hand Name Role Phone KALPESH SÁNCHEZ Unavailable PROBLEMS Type Condition ICD9-CM Code UFD79-FL Code Onset Dates Condition Status SNOMED Code Problem Paranoid schizophrenia F20.0 Active 41526291 Problem Generalized anxiety disorder F41.1 Active 81883540 Problem Other psoriasis 696.1 Active 6428217 Problem Encounter for long-term (current) use of other medications Z79.899 Active 630377081 Problem Paranoid schizophrenia, chronic condition with acute exacerbation 295.34 Active [id number] ALLERGIES No Information ENCOUNTERS Encounter Location Date Diagnosis [facility] [id number] [place] [address]162- 6772 Nov, [facility] [id number], [place] [address] Sep, [facility] [id number] [place] [address] 40190- 4903 August, Paranoid schizophrenia F20.0 ; Generalized anxiety disorder F41.1 and Encounter for long-term (current) use of other medications Z79.899 [facility] [id number], [place] [address] August, [facility] [address], [place] [address] 0[address] Jul, [facility] [id number] [place] [address] 80404- 5983 Apr, [facility] [address], [place] [address] Mar, Paranoid schizophrenia, chronic condition F20.0 ; Generalized anxiety disorder F41.1 and Encounter for long-term (current) use of other medications Z79.899 [facility] [address] [facility] [id number] [address] Feb, [facility] [address] [id number] [address] 95[address] Dec, Paranoid schizophrenia, chronic condition F20.0 ; Generalized anxiety disorder F41.1 and Encounter for long-term (current) use of other medications Z79.899 [facility] [address] [facility] [id number] [place] [address] Nov, [facility] [address] [facility] [id number] [place] [address]- 9860 Nov, [facility] [address] [id number] [address] 7570 Nov, [facility] [id number] [place] [address] 6169 Oct, [facility] [address] [id number] [place] [address] 5371 Oct, [facility] [address] [id number] [place] [address]- 9850 Sep, [facility] [id number] [address] 9275 Sep, [facility] [address], [place] [address] 3[address] August, [facility] [address] [id number], [place] [address] 0306 May, [facility] [address] [id number] [address] 3224 Mar, Paranoid schizophrenia, chronic condition F20.0 ; Encounter for long-term (current) use of other medications Z79.899 and Generalized anxiety disorder F41.1 [facility] [address] [id number] 4735 Dec, [facility] [address], [place] [address]- 7595 Nov, Paranoid schizophrenia, chronic condition F20.0 ; Generalized anxiety disorder F41.1 and Encounter for long-term (current) use of other medications Z79.899 [facility] [id number] [address] 6[address] Oct, [facility] [id number] [place] [address] 18903- 1288 Sep, [facility] [id number] [place] [address] 01903- 6430 Sep, [facility] [id number] [place] [address] 13763- 3712 August, [facility] [id number] [place] [address] 05542- 4698 Jun, [facility] [id number] [place] [address] 60218- 4302 May, [facility] [id number] [place] [address] 224126- 4301 Apr, Generalized anxiety disorder F41.1 [facility] [address] 130[address] Apr, [facility] [address], [place] [address]- 7513 Mar, [facility] [id number], [place] [address]- 1282 Mar, [facility] [id number], [place] [address] 3942 Feb, [facility] [id number], [place] [address]- 6316 Feb, [facility] [address], [place] [address]- 3564 Feb, [facility] [address], [place] [address]- 4496 Jan, Generalized anxiety disorder F41.1 ; Encounter for long- term (current) use of other medications Z79.899 and Paranoid schizophrenia, chronic condition F20.0 [facility] [address], [place] [address]- 4158 Dec, [facility] [address] [facility] [id number] [place] [address] 23128- 7813 Dec, [facility] [address] [id number] [address]- 0413 Dec, [facility] [id number], [place] [address]- 8536 Nov, [facility] [address], [place] [address]- 7262 Oct, [facility] [address] [id number] [address]- 2025 Oct, [facility] [address] [id number], [place] [address]- 3480 Oct, [facility] [address], [place] [address]- 2210 August, [facility] [address], [place] [address]- 0222 Jul, [facility] [address] [id number], [place] [address]- 7220 Jul, [facility] [id number], [place] [address]- 1617 Jun, [facility] [address], [place] [address]- 2926 Jun, [facility] [address] [id number], [place] [address]- 7186 May, [facility] [id number] [place] [address], [place] [address]- 9275 May, [facility] [place] [facility] [address] [id number] [place] [address]- 9589 May, [facility] [place] [facility] [address] [id number] [place] 8344 May, [facility] [place] [facility] [address] [id number] [place] [address]- 1276 Apr, [facility] [place] [facility] [address] [id number] [place] [address]- 1732 Apr, [facility] [place] [facility] [address] [id number] [place] 9780 Mar, [facility] [place] [facility] [address] [id number] [place] [address]- 0507 Mar, [facility] [place] [facility] [address] [id number] [place] [address]- 9290 Mar, [facility] [place] [facility] [address] [facility] [id number] [place] [address]- 6582 Mar, [facility] [place] [facility] [address] [id number] [place] [address]- 5862 Mar, [facility] [place] [facility] [address] [facility] [id number] [place] [address]- 3643 Mar, [facility] [place] [facility] [address] [id number] [place] [address]- 2851 Feb, [facility] [place] [facility] [address] [id number] [place] [address]- 1873 Feb, [facility] [place] [facility] [address] [id number] [place] [address]- 5774 Jan, [facility] [place] [facility] [address] [id number] [place] [address]- 4369 Jan, [facility] [place] [facility] [address] [id number] [place] [address]- 1334 Jan, [facility] [place] [facility] [address] [id number] [place] [address]- 7529 Jan, [facility] [place] [facility] [address] [id number] [place] 4766 Dec, [facility] [place] [facility] [address] [id number] [place] [address]- 6252 Dec, [facility] [place] [facility] [address] [id number] [place] [address]- 4256 Nov, [facility] [place] [facility] [address] [id number] [place] [address]- 9750 Nov, [facility] [place] [facility] [address] [id number] [place] [address]- 2013 Nov, [facility] [place] [facility] [address] [id number] [place] [address]- 0448 Nov, [facility] [place] [facility] [address] [id number] [place] [address]- 3856 Oct, [facility] [place] [facility] [address] [id number] [place] [address]- 0392 Oct, [facility] [place] [facility] [address] [id number] [place] [address]- 2623 Oct, [facility] [place] [facility] [address] [id number] [place] [address]- 2878 Oct, [facility] [place] [facility] [address] [id number] [place] [address]- 7393 Sep, [facility] [place] [facility] [address] [id number] [place] [address]- 5044 Sep, [facility] [place] [facility] [address] [id number] [place] [address]- 0055 Sep, [facility] [place] [facility] [address] [id number] [place] [address]- 0839 Sep, [facility] [place] [facility] [address] [id number] [place] [address]- 8603 Sep, [facility] [place] [facility] [address] [id number] [place] [address]- 6040 Sep, [facility] [place] [facility] [address] [id number] [place] [address]- 8336 August, [facility] [place] [facility] [address] [id number] [place] [address]- 9020 August, [facility] [place] [facility] [address] [id number] [place] [address]- 9618 August, [facility] [place] [facility] [address] [id number] [place] [address]- 5257 Jul, [facility] [place] [facility] [address] [id number] [place] [address]- 6308 Jul, [facility] [place] [facility] [address] [id number] [place] [address]- 7496 Jul, [facility] [place] [facility] [address] [id number] [place] [address]- 2264 Jul, [facility] [place] [facility] [address] [id number] [place] [address]- 7832 Jun, [facility] [place] [facility] [address] [id number] [place] [address]- 3065 Jun, [facility] [place] [facility] [address] [id number] [place] [address]- 7027 Jun, [facility] [place] [facility] [address] [id number] [place] [address]- 5602 Jun, [facility] [place] [facility] [address] [id number] [place] [address]- 7525 Jun, [facility] [place] [facility] [address] [id number] [place] [address]- 4698 Jun, [facility] [place] [facility] [address] [id number] [place] [address]- 4314 Jun, [facility] [place] [facility] [address] [id number] [place] [address]- 8517 Jun, [facility] [place] [facility] [address] [id number] [place] [address]- 0596 May, 2013 [facility] [place] [facility] [address] [id number] [place] [address]- 3516 May, 2013 [facility] [place] [facility] [address] [id number] [place] [address]- 9086 May, 2013 [facility] [place] [facility] [address] [id number] [place] [address] 2542 May, 2013 [facility] [place] [facility] [address] [id number] [place] [address]- 2606 May, 2013 [facility] [place] [facility] [address] [facility] [id number] [place] 8245 May, [facility] [place] [facility] [address] [facility] [id number] [place] [address]- 9360 May, [facility] [place] [facility] [address] [id number] [place] [address]- 9791 Mar, [facility] [place] [facility] [address] [facility] [id number] [place] [address]- 6633 30 Mar, 2013 [facility] [place] [facility] [address] [id number] [place] [address]- 5962 23 Mar, 2013 [facility] [place] [facility] [address] [id number] [place] [address] 2546 18 Mar, 2013 [facility] [place] [facility] [address] [id number] [place] [address]- 8256 18 Mar, 2013 [facility] [place] [facility] [address] [id number] [place] [address]- 2546 Mar, [facility] [place] [facility] [address] [id number] [place] 6004 10 Mar, 2013 [facility] [place] [facility] [address] [id number] [place] [address]- 7730 Feb, [facility] [place] [facility] [address] [id number] [place] [address]- 7336 Feb, [facility] [place] [facility] [address] [id number] [place] [address]- 4867 Feb, [facility] [place] [facility] [address] [id number] [place] [address]- 9184 Jan, [facility] [place] [facility] [address] [id number] [place] [address]- 7503 Jan, [facility] [place] [facility] [address] [id number] [place] [address]- 7572 Jan, [facility] [place] [facility] [address] [id number] [place] [address]- 6191 Jan, [facility] [place] [facility] [address] [id number] [place] [address]- 3205 Nov, [facility] [place] [facility] [address] [id number] [place] [address]- 8490 Nov, [facility] [place] [facility] [address] [id number] [place] [address]- 7798 Nov, [facility] [place] [facility] [address] [id number] [place] [address]- 3257 August, [facility] [place] [facility] [address] [id number] [place] [address]- 3618 August, [facility] [place] [facility] [address] [id number] [place] [address]- 8666 August, [facility] [place] [facility] [address] [id number] [place] [address]- 1163 Jul, [facility] [place] [facility] [address] [id number] [place] [address]- 6011 Jul, [facility] [place] [facility] [address] [id number] [place] [address]- 2826 Jul, [facility] [place] [facility] [address] [id number] [place] [address] 2546 08 Jul, 2012 [facility] [address] [id number] [place] [address]- 3085 14 Jun, 2012 [facility] [address] [id number] [place] [address] 2546 07 Jun, 2012 [facility] [address] [id number] [place] [address]- 2927 18 May, 2012 [facility] [address] [id number] [place] [address]- 0276 Apr, [facility] [address] [id number] [place] [address]- 8365 Apr, [facility] [address] [id number] [place] [address]- 9118 Apr, [facility] [address] [id number] [place] [address]- 3379 16 Apr, 2012 [facility] [address] [id number] [place] [address]- 0171 14 Apr, 2012 [facility] [address] [id number] [place] [address]- 1295 Apr, [facility] [address] [id number] [place] [address]- 1146 Apr, [facility] [address] [id number] [place] [address]- 1102 Apr, [facility] [address] [id number] [place] [address]- 2035 Apr, [facility] [address] [id number] [place] [address]- 9109 Apr, [facility] [address] [id number] [place] [address]- 9286 Mar, [facility] [address] [id number] [place] [address]- 4194 Mar, [facility] [place] [facility] [address] [id number] [place] [address]- 5982 Mar, [facility] [place] [facility] [address] [id number] [place] [address]- 8286 Mar, [facility] [place] [facility] [address] [id number] [place] [address]- 5445 Mar, [facility] [place] [facility] [address] [id number] [place] [address]- 0520 Mar, [facility] [place] [facility] [address] [id number] [place] [address]- 3957 Mar, [facility] [place] [facility] [address] [id number] [place] [address]- 3749 Mar, [facility] [place] [facility] [address] [id number] [place] [address]- 7907 Mar, [facility] [place] [facility] [address] [id number] [place] [address]- 3559 Mar, [facility] [place] [facility] [address] [id number] [place] [address]- 4885 Mar, [facility] [place] [facility] [address] [id number] [place] [address]- 5151 Mar, [facility] [place] [facility] [address] [id number] [place] [address]- 9579 Mar, [facility] [place] [facility] [address] [id number] [place] [address]- 8375 Mar, [facility] [place] [facility] [address] [id number] [place] [address]- 2105 Feb, [facility] [place] [facility] [address] [id number] [place] [address]- 0876 Feb, [facility] [place] [facility] [address] [id number] [place] [address]- 5716 Feb, [facility] [place] [facility] [address] [id number] [place] [address]- 2110 Feb, [facility] [place] [facility] [address] [id number] [place] [address]- 1596 Jan, [facility] [place] [facility] [address] [id number] [place] [address]- 0706 Jan, [facility] [place] [facility] [address] [id number] [place] [address] 2546 Dec, [facility] [place] [facility] [address] [id number] [place] [address] 254 Dec, [facility] [place] [facility] [address] [id number] [place] [address]- 3779 Dec, [facility] [place] [facility] [address] [id number] [place] [address]- 8083 Nov, [facility] [place] [facility] [address] [id number] [place] [address]- 6769 Nov, [facility] [place] [facility] [address] [id number] [place] [address]- 1975 Oct, [facility] [place] [facility] [address] [id number] [place] [address]- 9666 Sep, [facility] [place] [facility] [address] [id number] [place] [address]- 6856 Sep, [facility] [place] [facility] [address] [id number] [place] [address]- 9701 August, [facility] [place] [facility] [address] [id number] [place] [address]- 2546 August, [facility] [place] [facility] [address] [id number] [place] [address]- 8872 Jul, [facility] [place] [facility] [address] [id number] [place] [address] 2546 Jul, [facility] [place] [facility] [address] [id number] [place] [address]- 8086 Jun, [facility] [place] [facility] [address] [id number] [place] [address]- 6190 Jun, [facility] [place] [facility] [address] [id number] [place] [address]- 6206 Jun, [facility] [place] [facility] [address] [id number] [place] 8046 Jun, [facility] [place] [facility] [address] [id number] [place] [address]- 1417 May, [facility] [place] [facility] [address] [id number] [place] [address]- 8476 May, [facility] [place] [facility] [address] [id number] [place] [address]- 2945 May, [facility] [place] [facility] [address] [id number] [place] [address]- 4311 May, [facility] [place] [facility] [address] [id number] [place] [address]- 6836 May, [facility] [place] [facility] [address] [id number] [place] [address]- 2213 Apr, [facility] [place] [facility] [address] [id number] [place] [address]- 5725 Apr, [facility] [place] [facility] [address] [id number] [place] [address]- 0663 Apr, [facility] [place] [facility] [address] [id number] [place] [address] Apr, [facility] [place] [facility] [address] [id number] [place] [address] Apr, [facility] [place] [facility] [address] [id number] [place] [address] Apr, [facility] [place] [facility] [address] [id number] [place] [address] Apr, [facility] [place] [facility] [address] [id number], [place] [address] Mar, [facility] [address] [id number] [address] Feb, [facility] [address] [id number] [address] Feb, [facility] [id number] [address] Feb, [facility] [id number] [place] [address] Feb, [facility] [id number] [place] [address] Feb, [facility] [id number] [place] [address] Jan, [facility] [id number] [place] [address] Jan, [facility] [id number], [place] [address] Jan, [facility] [id number] [place] [address] Jan, [facility] [id number], [place] [address] Nov, [facility] [id number], [place] [address] Sep, [facility] [id number], [place] [address] Jul, [facility] [id number], [place] [address] Apr, IMMUNIZATIONS No Known Immunizations SOCIAL HISTORY Never Assessed REASON FOR VISIT klonopin refill PLAN OF CARE VITAL SIGNS MEDICATIONS Medication Instructions Dosage Frequency Start Date End Date Duration Status Clonazepam 1MG Orally 3 times a day for anxiety. MUST be seen for any future refill 1 tablet Active RESULTS No Results PROCEDURES No Known procedures INSTRUCTIONS MEDICATIONS ADMINISTERED No Known Medications
--- OUTSIDE RECORDS SUMMARY | 2018-01-09 01:05 | XMS REPORT ---
Author Author BERNARD DAVENPORT Organization [employer] Address Unknown Phone Unavailable Care Team Providers Care Chart Collector Name Role Phone BERNARD DAVENPORT CP Unavailable Allergies No Known Allergies Problems Problem Type Condition Code Onset Dates Condition Status Problem Generalized anxiety disorder 300.02 Active Problem Paranoid schizophrenia, chronic condition with acute exacerbation 295.34 Active Problem Paranoid schizophrenia, chronic condition 295.32 Active Problem Encounter for long-term (current) use of other medications V58.69 Active Problem Other psoriasis 696.1 Active Medications No Known Medications Results No Known Results Summary Purpose [employer] Submission
--- OUTSIDE RECORDS SUMMARY | 2018-01-09 01:05 | XMS REPORT ---
Author Author KALPESH SÁNCHEZ [employer] Address Unknown Phone Unavailable Care Team Providers Care Webbing Tacker Name Role Phone KALPESH SÁNCHEZ CP Unavailable Allergies No Known Allergies Problems Problem Type Condition Code Onset Dates Condition Status Problem Generalized anxiety disorder 300.02 Active Problem Paranoid schizophrenia, chronic condition with acute exacerbation 295.34 Active Problem Paranoid schizophrenia, chronic condition 295.32 Active Problem Encounter for long-term (current) use of other medications V58.69 Active Problem Other psoriasis 696.1 Active Medications Medication Code System Code Instructions Start Date End Date Status Dosage [facility] [address]-40 6 MG Orally Once a day Nov 22, 2012 2 tablets Results No Known Results Summary Purpose [employer] Submission
--- OUTSIDE RECORDS SUMMARY | 2018-01-09 01:05 | XMS REPORT ---
Author Author KALPESH SÁNCHEZ [employer] Address Unknown Phone Unavailable Care Team Providers Care Top Bottom Attaching Machine Operator Name Role Phone KALPESH SÁNCHEZ CP Unavailable [...] Instructions Start Date End Date Status Dosage Clonazepam [facility] [address]-51 1 MG Orally 3 times a day PRN for anxiety July 08, 2014 1 tablet Results No Known Results Summary Purpose [employer] Submission
--- OUTSIDE RECORDS SUMMARY | 2018-01-09 01:05 | XMS REPORT ---
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 Name Role Phone KALPESH SÁNCHEZ Unavailable PROBLEMS Type Condition ICD9-CM Code [id number] Code Onset Dates Condition Status SNOMED Code Problem Paranoid schizophrenia F20.0 Active 04163966 Problem Generalized anxiety disorder F41.1 Active 18774021 Problem Other psoriasis 696.1 Active 8743492 Problem Encounter for long-term (current) use of other medications Z79.899 Active 331160466 Problem Paranoid schizophrenia, chronic condition with acute exacerbation 295.34 Active [id number] ALLERGIES No Known Allergies ENCOUNTERS Encounter Location Date Diagnosis [facility] [address] [address] Nov, [facility] [address], [place] [address] Sep, [facility] [id number] [place] [address]- [address] August, Paranoid schizophrenia F20.0 ; Generalized anxiety disorder F41.1 and Encounter for long-term (current) use of other medications Z79.899 [facility] [address] [address] August, [facility] [address] [address] Jul, [facility] [id number] [place] [address]- 3462 Apr, [facility] [address] [address] Mar, Paranoid schizophrenia, chronic condition F20.0 ; Generalized anxiety disorder F41.1 and Encounter for long-term (current) use of other medications Z79.899 [facility] [address] [facility] [id number] [place] [address] Feb, [facility] [address] [facility] [id number] [place] [address] Dec, Paranoid schizophrenia, chronic condition F20.0 ; Generalized anxiety disorder F41.1 and Encounter for long-term (current) use of other medications Z79.899 [facility] [address] [id number] [place] [address] Nov, [facility] [address] [facility] [id number] [place] [address] Nov, [facility] [address] [facility] [id number] [place] [address] 8239 Nov, [facility] [address] [id number] [place] [address] 37[address] Oct, [facility] [address] [facility] [id number] [place] [address]- 2442 Oct, [facility] [address] [id number] [place] [address]- 1675 Sep, [facility] [address] [id number] [place] [address]- 8590 Sep, [facility] [address] [id number] [place] [address]- 5666 August, [facility] [address] [facility] [id number] [place] [address]- 2456 May, [facility] [address] [id number] [place] [address]- [address] Mar, Paranoid schizophrenia, chronic condition F20.0 ; Encounter for long-term (current) use of other medications Z79.899 and Generalized anxiety disorder F41.1 [facility] [address] [id number] [address] Dec, [facility] [address] [address] [address] Nov, Paranoid schizophrenia, chronic condition F20.0 ; Generalized anxiety disorder F41.1 and Encounter for long-term (current) use of other medications Z79.899 [facility] [id number] [place] [address]- 2353 Oct, [facility] [id number] [place] [address] 48057- 5190 Sep, [facility] [id number] [place] [address] 35670- 3948 Sep, [facility] [id number] [place] [address] 63124- 1332 August, [facility] [id number] [place] [address] 992804- 9789 Jun, [facility] [id number] [place] [address] 85065- 2732 May, [facility] [id number] [place] [address] 559757- 5612 Apr, Generalized anxiety disorder F41.1 [facility] [id number] [place] [address] 83613- 3141 Apr, [facility] [id number] [place] [address] 63482- 6184 Mar, [facility] [address] [id number] [address]- 3282 Mar, [facility] [id number] [place] [address] 46963- 3019 Feb, [facility] [address] [id number] [address]- 0466 Feb, [facility] [id number] [place] [address] 74700- 7860 Feb, [facility] [address] [address]- [address] Jan, Generalized anxiety disorder F41.1 ; Encounter for long- term (current) use of other medications Z79.899 and Paranoid schizophrenia, chronic condition F20.0 [facility] [address] [address]- [address] Dec, [facility] [id number] [place] [address] 44662- 1917 Dec, [facility] [address], [place] [address]- 4534 Dec, [facility] [id number] [place] [address] 47121- 8526 Nov, [facility] [id number] [place] [address] 31995- 1261 Oct, [facility] [id number] [place] [address] 92458- 3122 Oct, [facility] [address], [place] [address]- 3373 Oct, [facility] [address] [id number] [address]- 7330 August, [facility] [address] [address]- 2229 Jul, [facility] [address], [place] [address]- 3870 Jul, [facility] [address], [place] [address]- 9998 Jun, [facility] [address] [id number] [address]- 1706 Jun, [facility] [address], [place] [address] 2546 May, [facility] [address] [id number] [place] [address]- 3724 12 May, 2014 [facility] [address] [id number] [place] [address]- 3177 May, 2014 [facility] [place] [facility] [address] [id number] [place] [address]- 8894 12 May, 2014 [facility] [place] [facility] [address] [id number] [place] [address]- 2630 Apr, [facility] [place] [facility] [address] [id number] [place] [address]- 0679 Apr, [facility] [place] [facility] [address] [id number] [place] [address] Mar, [facility] [place] [facility] [address] [id number] [place] [address]- 1315 Mar, [facility] [place] [facility] [address] [facility] [id number] [place] [address]- 7514 Mar, [facility] [place] [facility] [address] [facility] [id number] [place] [address]- 5628 Mar, [facility] [place] [facility] [address] [facility] [id number] [place] [address]- 3264 Mar, [facility] [place] [facility] [address] [facility] [id number] [place] [address]- 4655 Mar, [facility] [place] [facility] [address] [id number] [place] [address]- 3345 Feb, [facility] [place] [facility] [address] [facility] [id number] [place] [address]- 7927 Feb, [facility] [place] [facility] [address] [id number] [place] [address]- 9629 Jan, [facility] [place] [facility] [address] [facility] [id number] [place] [address]- 2789 Jan, [facility] [place] [facility] [address] [facility] [id number] [place] [address]- 6268 Jan, [facility] [place] [facility] [address] [id number] [place] [address]- 8943 Jan, [facility] [place] [facility] [address] [id number] [place] [address]- 7616 Dec, [facility] [place] [facility] [address] [id number] [place] [address]- 1402 Dec, [facility] [place] [facility] [address] [id number] [place] [address]- 2880 Nov, [facility] [place] [facility] [address] [id number] [place] [address]- 6609 Nov, [facility] [place] [facility] [address] [id number] [place] [address]- 4672 Nov, [facility] [place] [facility] [address] [id number] [place] [address]- 2711 Nov, [facility] [place] [facility] [address] [id number] [place] [address]- 3101 Oct, [facility] [place] [facility] [address] [id number] [place] [address]- 4019 Oct, [facility] [place] [facility] [address] [id number] [place] [address]- 5972 Oct, [facility] [place] [facility] [address] [id number] [place] [address]- 2905 Oct, [facility] [place] [facility] [address] [id number] [address]- 0297 Sep, [facility] [place] [facility] [address] [id number] [place] [address]- 4103 Sep, [facility] [place] [facility] [address] [id number] [place] [address]- 6853 Sep, [facility] [place] [facility] [address] [id number] [place] [address]- 1006 Sep, [facility] [place] [facility] [address] [id number] [place] [address]- 2778 Sep, [facility] [place] [facility] [address] [id number] [place] [address]- 8951 Sep, [facility] [place] [facility] [address] [id number] [place] [address] August, [facility] [place] [facility] [address] [id number] [place] [address]- 1318 August, [facility] [place] [facility] [address] [id number] [place] [address]- 7056 August, [facility] [place] [facility] [address] [id number] [place] [address]- 9732 Jul, [facility] [place] [facility] [address] [id number] [place] [address]- 4241 Jul, [facility] [place] [facility] [address] [id number] [place] [address]- 7893 Jul, [facility] [place] [facility] [address] [id number] [place] [address]- 9246 Jul, [facility] [place] [facility] [address] [id number] [place] [address]- 1169 Jun, [facility] [place] [facility] [address] [id number] [place] [address]- 6650 Jun, [facility] [place] [facility] [address] [id number] [place] [address]- 5209 Jun, [facility] [place] [facility] [address] [id number] [place] [address]- 9306 Jun, [facility] [place] [facility] [address] [id number] [place] [address]- 2134 Jun, [facility] [place] [facility] [address] [id number] [place] [address]- 9081 Jun, [facility] [place] [facility] [address] [id number] [place] 0844 Jun, [facility] [place] [facility] [address] [id number] [place] [address]- 0687 Jun, [facility] [place] [facility] [address] [id number] [place] [address]- 8746 May, 2013 [facility] [place] [facility] [address] [id number] [place] [address] 2546 May, 2013 [facility] [place] [facility] [address] [id number] [place] [address] 2546 May, 2013 [facility] [place] [facility] [address] [id number] [place] [address]- 3220 May, 2013 [facility] [place] [facility] [address] [id number] [place] [address]- 4816 May, 2013 [facility] [place] [facility] [address] [facility] [id number] [place] [address]- 5659 May, 2013 [facility] [place] [facility] [address] [facility] [id number] [place] [address]- 6376 May, [facility] [place] [facility] [address] [id number] [place] [address]- 5735 Mar, [facility] [place] [facility] [address] [facility] [id number] [place] [address]- 9414 30 Mar, 2013 [facility] [place] [facility] [address] [facility] [id number] [place] [address]- 4928 23 Mar, 2013 [facility] [place] [facility] [address] [id number] [place] [address] 2548 18 Mar, 2013 [facility] [place] [facility] [address] [id number] [place] [address]- 2546 18 Mar, 2013 [facility] [place] [facility] [address] [id number] [place] [address]- 2546 Mar, [facility] [place] [facility] [address] [id number] [place] 4518 10 Mar, 2013 [facility] [place] [facility] [address] [id number] [place] [address]- 4024 Feb, [facility] [place] [facility] [address] [id number] [place] [address]- 9879 Feb, [facility] [place] [facility] [address] [id number] [place] [address]- 2373 Feb, [facility] [place] [facility] [address] [id number] [place] [address]- 2052 Jan, [facility] [place] [facility] [address] [id number] [place] [address]- 9013 Jan, [facility] [place] [facility] [address] [id number] [place] [address]- 2689 Jan, [facility] [place] [facility] [address] [id number] [place] [address]- 7800 Jan, [facility] [place] [facility] [address] [id number] [place] [address]- 2490 Nov, [facility] [place] [facility] [address] [id number] [place] [address]- 5589 Nov, [facility] [place] [facility] [address] [id number] [place] [address]- 2762 Nov, [facility] [place] [facility] [address] [id number] [place] [address]- 9765 August, [facility] [place] [facility] [address] [id number] [place] [address]- 5259 August, [facility] [place] [facility] [address] [id number] [place] [address]- 8857 August, [facility] [place] [facility] [address] [id number] [place] [address]- 7681 Jul, [facility] [place] [facility] [address] [id number] [place] [address]- 5108 Jul, [facility] [place] [facility] [address] [id number] [place] [address]- 7283 Jul, [facility] [place] [facility] [address] [id number] [place] [address] 2546 08 Jul, 2012 [facility] [address] [id number] [place] [address]- 9461 14 Jun, 2012 [facility] [address] [id number] [place] [address] 2546 07 Jun, 2012 [facility] [address] [id number] [place] [address]- 9446 18 May, 2012 [facility] [address] [id number] [place] [address]- 2505 Apr, [facility] [address] [id number] [place] [address]- 3509 Apr, [facility] [address] [id number] [place] [address]- 6831 Apr, [facility] [address] [id number] [place] [address]- 6672 Apr, [facility] [address] [id number] [place] [address]- 5286 Apr, [facility] [address] [id number] [place] [address]- 3038 Apr, [facility] [address] [id number] [place] [address]- 0099 Apr, [facility] [address] [id number] [place] [address]- 6085 Apr, [facility] [address] [id number] [place] [address]- 7688 Apr, [facility] [address] [id number] [place] [address]- 8386 Apr, [facility] [address] [id number] [place] [address]- 2546 Mar, [facility] [address] [id number] [place] [address]- 4078 Mar, [facility] [address] [id number] [place] [address]- 3574 Mar, [facility] [place] [facility] [address] [id number] [place] [address]- 6476 Mar, [facility] [place] [facility] [address] [id number] [place] 9831 Mar, [facility] [place] [facility] [address] [id number] [place] [address]- 9328 Mar, [facility] [place] [facility] [address] [id number] [place] [address]- 5838 Mar, [facility] [place] [facility] [address] [id number] [place] [address]- 8994 Mar, [facility] [place] [facility] [address] [id number] [place] [address]- 1710 Mar, [facility] [place] [facility] [address] [id number] [place] [address]- 5450 Mar, [facility] [place] [facility] [address] [id number] [place] [address]- 5751 Mar, [facility] [place] [facility] [address] [id number] [place] [address]- 7946 Mar, [facility] [place] [facility] [address] [id number] [place] [address]- 8803 Mar, [facility] [place] [facility] [address] [id number] [address]- 6884 Mar, [facility] [place] [facility] [address] [id number] [place] [address]- 2222 Feb, [facility] [place] [facility] [address] [id number] [place] [address]- 0959 Feb, [facility] [place] [facility] [address] [id number] [place] [address]- 2312 Feb, [facility] [place] [facility] [address] [id number] [place] [address] 2544 Feb, [facility] [place] [facility] [address] [id number] [place] [address]- 6264 Jan, [facility] [place] [facility] [address] [id number] [place] [address]- 1096 Jan, [facility] [place] [facility] [address] [id number] [place] [address] 2546 Dec, [facility] [place] [facility] [address] [id number] [place] [address] 2542 Dec, [facility] [place] [facility] [address] [id number] [place] [address]- 3403 Dec, [facility] [place] [facility] [address] [id number] [place] [address]- 0552 Nov, [facility] [place] [facility] [address] [id number] [place] [address]- 3363 Nov, [facility] [place] [facility] [address] [id number] [place] [address]- 9550 Oct, [facility] [place] [facility] [address] [id number] [place] [address]- 6359 Sep, [facility] [place] [facility] [address] [id number] [place] [address] 2546 Sep, [facility] [place] [facility] [address] [id number] [place] [address]- 6853 August, [facility] [place] [facility] [address] [id number] [place] [address]- 2546 August, [facility] [place] [facility] [address] [id number] [place] [address]- 8600 Jul, [facility] [place] [facility] [address] [id number] [place] [address] 2546 Jul, [facility] [place] [facility] [address] [id number] [place] [address]- 2926 Jun, [facility] [place] [facility] [address] [id number] [place] [address]- 9935 Jun, [facility] [place] [facility] [address] [id number] [place] [address]- 9136 Jun, [facility] [place] [facility] [address] [id number] [place] [address]- 3626 Jun, [facility] [place] [facility] [address] [id number] [place] [address] May, [facility] [place] [facility] [address] [id number] [place] [address] May, [facility] [place] [facility] [address] [id number] [place] [address] May, [facility] [place] [facility] [address] [id number] [place] [address] May, [facility] [place] [facility] [address] [id number] [place] [address] May, [facility] [place] [facility] [address] [id number] [place] [address] Apr, [facility] [place] [facility] [address] [id number] [place] [address] Apr, [facility] [place] [facility] [address] [id number] [place] [address] Apr, [facility] [place] [facility] [address] [id number] [place] [address] Apr, [facility] [place] [facility] [address] [id number] [place] [address] Apr, [facility] [place] [facility] [address] [id number] [place] [address] Apr, [facility] [place] [facility] [address] [id number] [place] [address] Apr, [facility] [place] [facility] [address] [id number] [address] Mar, [facility] [id number] [address] Feb, [facility] [id number] [address] Feb, [facility] [id number] [address] Feb, [facility] [id number] [place] [address] Feb, [facility] [id number] [place] [address] Feb, [facility] [id number] [place] [address] Jan, [facility] [id number] [place] [address] Jan, [facility] [id number] [address] Jan, [facility] [id number] [address] Jan, [facility] [id number] [address] Nov, [facility] [id number] [address] Sep, [facility] [id number] [address] Jul, [facility] [id number] [address] Apr, IMMUNIZATIONS No Known Immunizations SOCIAL HISTORY Never Assessed REASON FOR VISIT f/u--Eulalio Rueda MA PLAN OF CARE Activity Details Follow Up 4 Months Reason: VITAL SIGNS Height 69.75 in 2017-03-22 Weight 190.8 lbs 2017-03-22 Heart Rate 92 bpm 2017-03-22 Respiratory Rate 20 2017-03-22 BMI 27.57 kg/m2 2017-03-22 Blood pressure systolic 126 mmHg 2017-03-22 Blood pressure diastolic 80 mmHg 2017-03-22 MEDICATIONS Medication Instructions Dosage Frequency Start Date End Date Duration Status Prozac 20 mg Orally in the morning for depression 1 capsule Mar, Not-Taking Clonazepam 1 MG Orally 3 times a day for anxiety 1 tablet Active Metoprolol Tartrate 25 MG Orally 1 tab in the AM for one week then increase to 1 tab twice a day for panic 1 tablet with food Mar, Active Invega 6 MG Orally Once a day 2 tablets 24h Active RESULTS No Results PROCEDURES Procedure Date Ordered Result Body Site [facility] ESTABLISHED PATIENT Mar 22, 2017 INSTRUCTIONS MEDICATIONS ADMINISTERED No Known Medications
--- OUTSIDE RECORDS SUMMARY | 2018-01-09 01:05 | XMS REPORT ---
Author Author KALPESH SÁNCHEZ [employer] Address Unknown Phone Unavailable Care Team Providers [facility] Working Supervisor Name Role Phone KALPESH SÁNCHEZ CP Unavailable [...]
--- OUTSIDE RECORDS SUMMARY | 2018-01-09 01:06 | XMS REPORT ---
Author Author PRINCESS KALPESH [facility] Address [address] [place] [address] Care Team Providers Care Human Resources Designate Name Role Phone KALPESH SÁNCHEZ Unavailable PROBLEMS Type Condition ICD9-CM Code GCZ08-QW Code Onset Dates Condition Status SNOMED Code Problem Paranoid schizophrenia F20.0 Active 86313445 Problem Generalized anxiety disorder F41.1 Active 42109742 Problem Other psoriasis 696.1 Active 5395260 Problem Encounter for long-term (current) use of other medications Z79.899 Active 227139278 Problem Paranoid schizophrenia, chronic condition with acute exacerbation 295.34 Active [id number] ALLERGIES No Information ENCOUNTERS Encounter Location Date Diagnosis [facility] [id number] [place] [address]52- 5862 Nov, [facility] [id number] [place] [address] 45195- 6007 Sep, [facility] [id number] [place] [address] 11984- 5701 August, Paranoid schizophrenia F20.0 ; Generalized anxiety disorder F41.1 and Encounter for long-term (current) use of other medications Z79.899 [facility] [address], [place] [address] August, [facility] [address] [address] 6[address] Jul, [facility] [id number] [place] [address] 91568- 2231 Apr, [facility] [address], [place] [address] Mar, Paranoid schizophrenia, chronic condition F20.0 ; Generalized anxiety disorder F41.1 and Encounter for long-term (current) use of other medications Z79.899 [facility] [address] [facility] [id number] [address] Feb, [facility] [id number] [address] Dec, Paranoid schizophrenia, chronic condition F20.0 ; Generalized anxiety disorder F41.1 and Encounter for long-term (current) use of other medications Z79.899 [facility] [address] [facility] [id number] [place] [address] Nov, [facility] [address] [facility] [id number] [place] [address]- 6152 Nov, [facility] [id number] [place] [address] 84[address] Nov, [facility] [id number] [place] [address] 5103 Oct, [facility] [id number] [place] [address] 1269 Oct, [facility] [id number] [place] [address]- 1505 Sep, [facility] [id number] [address] 7136 Sep, [facility] [address], [place] [address] 5[address] August, [facility] [id number] [address] 8586 May, [facility] [id number] [address] 1342 Mar, Paranoid schizophrenia, chronic condition F20.0 ; Encounter for long-term (current) use of other medications Z79.899 and Generalized anxiety disorder F41.1 [facility] [id number] [address] Dec, [facility] [address], [place] [address]- 116[address] Nov, Paranoid schizophrenia, chronic condition F20.0 ; Generalized anxiety disorder F41.1 and Encounter for long-term (current) use of other medications Z79.899 [facility] [address] [id number] [address] 0[address] Oct, [facility] [id number] [place] [address] 46919- 5686 Sep, [facility] [id number] [place] [address] 32752- 7519 Sep, [facility] [id number] [place] [address] 02147- 8938 August, [facility] [id number] [place] [address] 65583- 9459 Jun, [facility] [id number] [place] [address] 45908- 2984 May, [facility] [id number] [place] [address] 746420- 7618 Apr, Generalized anxiety disorder F41.1 [facility] [address] 77[address] Apr, [facility] [address], [place] [address]- 7353 Mar, [facility] [id number], [place] [address]- 4019 Mar, [facility] [id number], [place] [address]- 9096 Feb, [facility] [id number], [place] [address]- 3216 Feb, [facility] [address], [place] [address]- 0199 Feb, [facility] [address], [place] [address]- 4718 Jan, Generalized anxiety disorder F41.1 ; Encounter for long- term (current) use of other medications Z79.899 and Paranoid schizophrenia, chronic condition F20.0 [facility] [address], [place] [address]- 5484 Dec, [facility] [address] [facility] [id number] [place] [address] 43749- 8744 Dec, [facility] [id number], [place] [address]- 5778 Dec, [facility] [address] [id number], [place] [address]- 8096 Nov, [facility] [address], [place] [address]- 8689 Oct, [facility] [id number], [place] [address]- 8564 Oct, [facility] [id number], [place] [address]- 8001 Oct, [facility] [address], [place] [address]- 9371 August, [facility] [address], [place] [address]- 6055 Jul, [facility] [id number], [place] [address]- 9603 Jul, [facility] [id number], [place] [address]- 1319 Jun, [facility] [address], [place] [address]- 5706 Jun, [facility] [id number], [place] [address]- 0026 May, [facility] [id number] [place] [address], [place] [address]- 1369 May, [facility] [place] [facility] [address] [id number] [place] [address]- 1373 May, [facility] [place] [facility] [address] [id number] [place] 5[address] May, [facility] [place] [facility] [address] [id number] [place] [address]- 9548 Apr, [facility] [place] [facility] [address] [id number] [place] [address]- 5075 Apr, [facility] [place] [facility] [address] [id number] [place] [address]65 Mar, [facility] [place] [facility] [address] [id number] [place] [address]- 0424 Mar, [facility] [place] [facility] [address] [id number] [place] [address]- 8558 Mar, [facility] [place] [facility] [address] [facility] [id number] [place] [address]- 7976 Mar, [facility] [place] [facility] [address] [id number] [place] [address]- 3951 Mar, [facility] [place] [facility] [address] [facility] [id number] [place] [address]- 6398 Mar, [facility] [place] [facility] [address] [id number] [place] [address]- 5201 Feb, [facility] [place] [facility] [address] [id number] [place] [address]- 3121 Feb, [facility] [place] [facility] [address] [id number] [place] [address]- 7928 Jan, [facility] [place] [facility] [address] [id number] [place] [address]- 5473 Jan, [facility] [place] [facility] [address] [id number] [place] [address]- 9649 Jan, [facility] [place] [facility] [address] [id number] [place] [address]- 7221 Jan, [facility] [place] [facility] [address] [id number] [place] 0008 Dec, [facility] [place] [facility] [address] [id number] [place] [address]- 1631 Dec, [facility] [place] [facility] [address] [id number] [place] [address]- 0362 Nov, [facility] [place] [facility] [address] [id number] [place] [address]- 2570 Nov, [facility] [place] [facility] [address] [id number] [place] [address]- 4515 Nov, [facility] [place] [facility] [address] [id number] [place] [address]- 1608 Nov, [facility] [place] [facility] [address] [id number] [place] [address]- 3655 Oct, [facility] [place] [facility] [address] [id number] [place] [address]- 4458 Oct, [facility] [place] [facility] [address] [id number] [place] [address]- 6380 Oct, [facility] [place] [facility] [address] [id number] [place] [address]- 9948 Oct, [facility] [place] [facility] [address] [id number] [place] [address]- 2747 Sep, [facility] [place] [facility] [address] [id number] [place] [address]- 5379 Sep, [facility] [place] [facility] [address] [id number] [place] [address]- 9026 Sep, [facility] [place] [facility] [address] [id number] [place] [address]- 3412 Sep, [facility] [place] [facility] [address] [id number] [place] [address]- 7162 Sep, [facility] [place] [facility] [address] [id number] [place] [address]- 8770 Sep, [facility] [place] [facility] [address] [id number] [place] [address]- 0203 August, [facility] [place] [facility] [address] [id number] [place] [address]- 1518 August, [facility] [place] [facility] [address] [id number] [place] [address]- 5297 August, [facility] [place] [facility] [address] [id number] [place] [address]- 4016 Jul, [facility] [place] [facility] [address] [id number] [place] [address]- 3624 Jul, [facility] [place] [facility] [address] [id number] [place] [address]- 8587 Jul, [facility] [place] [facility] [address] [id number] [place] [address]- 4288 Jul, [facility] [place] [facility] [address] [id number] [place] [address]- 3117 Jun, [facility] [place] [facility] [address] [id number] [place] [address]- 9822 Jun, [facility] [place] [facility] [address] [id number] [place] [address]- 4675 Jun, [facility] [place] [facility] [address] [id number] [place] [address]- 4024 Jun, [facility] [place] [facility] [address] [id number] [place] [address]- 4307 Jun, [facility] [place] [facility] [address] [id number] [place] [address]- 5622 Jun, [facility] [place] [facility] [address] [id number] [place] [address]- 1212 Jun, [facility] [place] [facility] [address] [id number] [place] [address]- 3489 Jun, [facility] [place] [facility] [address] [id number] [place] [address]- 5366 May, 2013 [facility] [place] [facility] [address] [id number] [place] [address]- 0146 May, 2013 [facility] [place] [facility] [address] [id number] [place] [address]- 2976 May, 2013 [facility] [place] [facility] [address] [id number] [place] [address] 2547 May, 2013 [facility] [place] [facility] [address] [id number] [place] [address]- 9916 May, 2013 [facility] [place] [facility] [address] [facility] [id number] [place] 7247 May, [facility] [place] [facility] [address] [facility] [id number] [place] [address]- 1350 May, [facility] [place] [facility] [address] [id number] [place] [address]- 9970 Mar, [facility] [place] [facility] [address] [facility] [id number] [place] [address]- 6402 30 Mar, 2013 [facility] [place] [facility] [address] [id number] [place] [address]- 0464 23 Mar, 2013 [facility] [place] [facility] [address] [id number] [place] [address] 2546 18 Mar, 2013 [facility] [place] [facility] [address] [id number] [place] [address]- 9606 18 Mar, 2013 [facility] [place] [facility] [address] [id number] [place] [address]- 2546 Mar, [facility] [place] [facility] [address] [id number] [place] 8210 10 Mar, 2013 [facility] [place] [facility] [address] [id number] [place] [address]- 3015 Feb, [facility] [place] [facility] [address] [id number] [place] [address]- 4603 Feb, [facility] [place] [facility] [address] [id number] [place] [address]- 7057 Feb, [facility] [place] [facility] [address] [id number] [place] [address]- 1154 Jan, [facility] [place] [facility] [address] [id number] [place] [address]- 6611 Jan, [facility] [place] [facility] [address] [id number] [place] [address]- 8630 Jan, [facility] [place] [facility] [address] [id number] [place] [address]- 3627 Jan, [facility] [place] [facility] [address] [id number] [place] [address]- 1528 Nov, [facility] [place] [facility] [address] [id number] [place] [address]- 1597 Nov, [facility] [place] [facility] [address] [id number] [place] [address]- 0000 Nov, [facility] [place] [facility] [address] [id number] [place] [address]- 2047 August, [facility] [place] [facility] [address] [id number] [place] [address]- 7612 August, [facility] [place] [facility] [address] [id number] [place] [address]- 4293 August, [facility] [place] [facility] [address] [id number] [place] [address]- 9832 Jul, [facility] [place] [facility] [address] [id number] [place] [address]- 8393 Jul, [facility] [place] [facility] [address] [id number] [place] [address]- 9088 Jul, [facility] [place] [facility] [address] [id number] [place] [address] 2546 08 Jul, 2012 [facility] [address] [id number] [place] [address]- 7315 14 Jun, 2012 [facility] [address] [id number] [place] [address] 2546 07 Jun, 2012 [facility] [address] [id number] [place] [address]- 4398 18 May, 2012 [facility] [address] [id number] [place] [address]- 6219 Apr, [facility] [address] [id number] [place] [address]- 2046 Apr, [facility] [address] [id number] [place] [address]- 3336 Apr, [facility] [address] [id number] [place] [address]- 4567 16 Apr, 2012 [facility] [address] [id number] [place] [address]- 9379 14 Apr, 2012 [facility] [address] [id number] [place] [address]- 4791 Apr, [facility] [address] [id number] [place] [address]- 3771 Apr, [facility] [address] [id number] [place] [address]- 9741 Apr, [facility] [address] [id number] [place] [address]- 1957 Apr, [facility] [address] [id number] [place] [address]- 3219 Apr, [facility] [address] [id number] [place] [address]- 4756 Mar, [facility] [address] [id number] [place] [address]- 1396 Mar, [facility] [place] [facility] [address] [id number] [place] [address]- 9430 Mar, [facility] [place] [facility] [address] [id number] [place] [address]- 7306 Mar, [facility] [place] [facility] [address] [id number] [place] [address]- 6073 Mar, [facility] [place] [facility] [address] [id number] [place] [address]- 3790 Mar, [facility] [place] [facility] [address] [id number] [place] [address]- 3264 Mar, [facility] [place] [facility] [address] [id number] [place] [address]- 7893 Mar, [facility] [place] [facility] [address] [id number] [place] [address]- 5501 Mar, [facility] [place] [facility] [address] [id number] [place] [address]- 6883 Mar, [facility] [place] [facility] [address] [id number] [place] [address]- 1744 Mar, [facility] [place] [facility] [address] [id number] [place] [address]- 1782 Mar, [facility] [place] [facility] [address] [id number] [place] [address]- 0017 Mar, [facility] [place] [facility] [address] [id number] [place] [address]- 2869 Mar, [facility] [place] [facility] [address] [id number] [place] [address]- 0737 Feb, [facility] [place] [facility] [address] [id number] [place] [address]- 7276 Feb, [facility] [place] [facility] [address] [id number] [place] [address]- 9341 Feb, [facility] [place] [facility] [address] [id number] [place] [address]- 7701 Feb, [facility] [place] [facility] [address] [id number] [place] [address]- 7535 Jan, [facility] [place] [facility] [address] [id number] [place] [address]- 0376 Jan, [facility] [place] [facility] [address] [id number] [place] [address] 2546 Dec, [facility] [place] [facility] [address] [id number] [place] [address] 2545 Dec, [facility] [place] [facility] [address] [id number] [place] [address]- 1927 Dec, [facility] [place] [facility] [address] [id number] [place] [address]- 3518 Nov, [facility] [place] [facility] [address] [id number] [place] [address]- 0064 Nov, [facility] [place] [facility] [address] [id number] [place] [address]- 1212 Oct, [facility] [place] [facility] [address] [id number] [place] [address]- 2024 Sep, [facility] [place] [facility] [address] [id number] [place] [address]- 5046 Sep, [facility] [place] [facility] [address] [id number] [place] [address]- 5295 August, [facility] [place] [facility] [address] [id number] [place] [address]- 2546 August, [facility] [place] [facility] [address] [id number] [place] [address]- 6740 Jul, [facility] [place] [facility] [address] [id number] [place] [address] 2546 Jul, [facility] [place] [facility] [address] [id number] [place] [address]- 3936 Jun, [facility] [place] [facility] [address] [id number] [place] [address]- 7285 Jun, [facility] [place] [facility] [address] [id number] [place] [address]- 8726 Jun, [facility] [place] [facility] [address] [id number] [place] 9756 Jun, [facility] [place] [facility] [address] [id number] [place] [address]- 8622 May, [facility] [place] [facility] [address] [id number] [place] [address]- 3671 May, [facility] [place] [facility] [address] [id number] [place] [address]- 1741 May, [facility] [place] [facility] [address] [id number] [place] [address]- 0812 May, [facility] [place] [facility] [address] [id number] [place] [address]- 6887 May, [facility] [place] [facility] [address] [id number] [place] [address]- 4160 Apr, [facility] [place] [facility] [address] [id number] [place] [address]- 7232 Apr, [facility] [place] [facility] [address] [id number] [place] [address]- 7201 Apr, [facility] [place] [facility] [address] [id number] [place] [address] Apr, [facility] [place] [facility] [address] [id number] [place] [address] Apr, [facility] [place] [facility] [address] [id number] [place] [address] Apr, [facility] [place] [facility] [address] [id number] [place] [address] Apr, [facility] [place] [facility] [address] [id number], [place] [address] Mar, [facility] [address] [facility] [id number], [place] [address] Feb, [facility] [address] [facility] [id number], [place] [address] Feb, [facility] [id number] [address] Feb, [facility] [address] [facility] [id number] [place] [address] Feb, [facility] [address] [facility] [id number] [place] [address] Feb, [facility] [id number] [place] [address] Jan, [facility] [id number] [place] [address] Jan, [facility] [id number], [place] [address] Jan, [facility] [id number] [place] [address] Jan, [facility] [id number], [place] [address] Nov, [facility] [id number], [place] [address] Sep, [facility] [id number], [place] [address] Jul, [facility] [id number], [place] [address] Apr, IMMUNIZATIONS No Known Immunizations SOCIAL HISTORY Never Assessed REASON FOR VISIT zeusonoanna refill PLAN OF CARE VITAL SIGNS MEDICATIONS Medication Instructions Dosage Frequency Start Date End Date Duration Status Clonazepam 1 MG Orally 3 times a day for anxiety 1 tablet 30 days Active RESULTS No Results PROCEDURES No Known procedures INSTRUCTIONS MEDICATIONS ADMINISTERED No Known Medications
--- OUTSIDE RECORDS SUMMARY | 2018-01-09 01:06 | XMS REPORT ---
Author Author RPINCESS KALPESH Organization [facility] Address [address] [place] [address] Care Team Providers Care Pressure Dispatcher Name Role Phone DIEGO SÁNCHEZA Unavailable PROBLEMS Type Condition ICD9-CM Code [id number] Code Onset Dates Condition Status SNOMED Code Problem Paranoid schizophrenia, chronic condition with acute exacerbation 295.34 Active 065203354 Problem Other psoriasis 696.1 Active 5741337 Problem Encounter for long-term (current) use of other medications Z79.899 Active 574286425 Problem Paranoid schizophrenia, chronic condition F20.0 Active 74287488 Problem Generalized anxiety disorder F41.1 Active 06390456 ALLERGIES Substance Reaction Event Type Date Status N.K.D.A. Unknown Non Drug Allergy Mar, Unknown SOCIAL HISTORY No smoking Hx information available PLAN OF CARE Activity Details Follow Up 6 Weeks Reason: VITAL SIGNS Height 69.75 in 2016-03-25 Weight 194.8 lbs 2016-03-25 Heart Rate 96 bpm 2016-03-25 Respiratory Rate 20 2016-03-25 BMI 28.15 kg/m2 2016-03-25 Blood pressure systolic 130 mmHg 2016-03-25 Blood pressure diastolic 81 mmHg 2016-03-25 MEDICATIONS Medication Instructions Dosage Frequency Start Date End Date Duration Status Invega 6 MG Orally Once a day 2 tablets 24h Active Prozac 20 mg Orally in the morning for depression 1 capsule Mar, Active Clonazepam 1 MG Orally Take 1 tablet 4 times a day for anxiety . Active RESULTS No Results PROCEDURES Procedure Date Ordered Related Diagnosis Body Site MH Office Visit, Est Pt., Level 4 Mar 25, 2016 IMMUNIZATIONS No Known Immunizations
--- OUTSIDE RECORDS SUMMARY | 2018-01-09 01:06 | XMS REPORT ---
Author Author KALPESH SÁNCHEZ [employer] Address Unknown Phone Unavailable Care Team Providers Care Compensation Manager Name Role Phone KALPESH SÁNCHEZ CP Unavailable Allergies No Known Allergies Problems Problem Type Condition ICD-9 Code Onset Dates Condition Status Problem Generalized anxiety disorder 300.02 Active Problem Paranoid schizophrenia, chronic condition with acute exacerbation 295.34 Active Problem Paranoid schizophrenia, chronic condition 295.32 Active Problem Encounter for long-term (current) use of other medications V58.69 Active Problem Other psoriasis 696.1 Active Medications No Known Medications Results No Known Results Summary Purpose [employer] Submission
--- OUTSIDE RECORDS SUMMARY | 2018-01-09 01:06 | XMS REPORT ---
Author Author KALPESH SÁNCHEZ Organization [facility] Address [address] [place] [address] Care Team Providers Care Supervisor Packing Room Name Role Phone KALPESH SÁNCHEZ Unavailable PROBLEMS Type Condition ICD9-CM Code BOI03-RC Code Onset Dates Condition Status SNOMED Code Problem Paranoid schizophrenia, chronic condition with acute exacerbation 295.34 Active 550008270 Problem Other psoriasis 696.1 Active 0715740 Problem Paranoid schizophrenia, chronic condition F20.0 Active 15792295 Problem Generalized anxiety disorder F41.1 Active 60979596 Problem Encounter for long-term (current) use of other medications Z79.899 Active 037617705 ALLERGIES Unknown Allergies SOCIAL HISTORY No smoking Hx information available PLAN OF CARE VITAL SIGNS MEDICATIONS Medication Instructions Dosage Frequency Start Date End Date Duration Status Clonazepam 1MG TAKE ONE TABLET BY MOUTH 4 TIMES DAILY FOR ANXIETY 30 Active RESULTS No Results PROCEDURES No Known procedures IMMUNIZATIONS No Known Immunizations
--- OUTSIDE RECORDS SUMMARY | 2018-01-09 01:06 | XMS REPORT ---
Author Author KALPESH SÁNCHEZ [employer] Address Unknown Phone Unavailable Care Team Providers Care Commercial Sales Representative Name Role Phone KALPESH SÁNCHEZ CP Unavailable Allergies No Known Allergies Problems Problem Type Condition Code Onset Dates Condition Status Problem Generalized anxiety disorder 300.02 Active Problem Paranoid schizophrenia, chronic condition with acute exacerbation 295.34 Active Problem Paranoid schizophrenia, chronic condition 295.32 Active Assessment Generalized anxiety disorder F41.1 Active Problem Encounter for long-term (current) use of other medications V58.69 Active Problem Other psoriasis 696.1 Active Medications No Known Medications Results No Known Results Summary Purpose eClinicalWorks Submission
--- OUTSIDE RECORDS SUMMARY | 2018-01-09 01:06 | XMS REPORT ---
Author Author KALPESH SÁNCHEZ Organization [facility] Address [address] [place] [address] Care Team Providers Care Pier Hand Name Role Phone KALPESH SÁNCHEZ Unavailable PROBLEMS Type Condition ICD9-CM Code NBY60-HY Code Onset Dates Condition Status SNOMED Code Problem Paranoid schizophrenia, chronic condition with acute exacerbation 295.34 Active 600433448 Problem Other psoriasis 696.1 Active 9225871 Problem Encounter for long-term (current) use of other medications Z79.899 Active 902815588 Problem Paranoid schizophrenia, chronic condition F20.0 Active 12364972 Problem Generalized anxiety disorder F41.1 Active 26875231 ALLERGIES Unknown Allergies SOCIAL HISTORY No smoking Hx information available PLAN OF CARE VITAL SIGNS MEDICATIONS Medication Instructions Dosage Frequency Start Date End Date Duration Status Clonazepam 1 MG Orally Take 1 tablet 4 times a day for anxiety . Active RESULTS No Results PROCEDURES No Known procedures IMMUNIZATIONS No Known Immunizations
--- OUTSIDE RECORDS SUMMARY | 2018-01-09 01:06 | XMS REPORT ---
Author Author KALPESH SÁNCHEZ [employer] Address Unknown Phone Unavailable Care Team Providers Care Cabinet Worker Name Role Phone KALPESH SÁNCHEZ CP Unavailable [...]
--- OUTSIDE RECORDS SUMMARY | 2018-01-09 01:06 | XMS REPORT ---
Author Author KALPESH SÁNCHEZ [employer] Address Unknown Phone Unavailable Care Team Providers Care Road Advisor Name Role Phone KALPESH SÁNCHEZ CP Unavailable [...] Start Date End Date Status Dosage Clonazepam [facility] [address]-56 1 MG Orally 3 times a day PRN for anxiety July 08, 2014 1 tablet Results No Known Results Summary Purpose eClinicalWorks Submission
--- OUTSIDE RECORDS SUMMARY | 2018-01-09 01:06 | XMS REPORT ---
Author Author PRINCESS KALPESH [facility] Address [address] [place] [address] Care Team Providers Care Electronic Court Recorder Name Role Phone KALPESH SÁNCHEZ Unavailable PROBLEMS Type Condition ICD9-CM Code EHO78-BE Code Onset Dates Condition Status SNOMED Code Problem Paranoid schizophrenia, chronic condition with acute exacerbation 295.34 Active 083596491 Problem Other psoriasis 696.1 Active 2577572 Problem Paranoid schizophrenia, chronic condition F20.0 Active 61534142 Problem Generalized anxiety disorder F41.1 Active 57080981 Problem Encounter for long-term (current) use of other medications Z79.899 Active 070349434 ALLERGIES No Information ENCOUNTERS Encounter Location Date Diagnosis [facility] [id number] [place] [address]80- [address]323 August, [facility] [id number] [place] [address] 16242- 4654 August, [facility] [id number] [place] [address] 12555- 5160 Jul, [facility] [id number] [address] Apr, [facility] [id number] [place] [address] 76886- 2595 Mar, Paranoid schizophrenia, chronic condition F20.0 ; Generalized anxiety disorder F41.1 and Encounter for long-term (current) use of other medications Z79.899 [facility] [id number] [place] [address]- 1916 Feb, [facility] [id number] [place] [address] 56975- 9863 Dec, Paranoid schizophrenia, chronic condition F20.0 ; Generalized anxiety disorder F41.1 and Encounter for long-term (current) use of other medications Z79.899 [facility] [address] [facility] [id number] [place] [address] Nov, [facility] [address] [facility] [id number] [place] [address]- 8426 Nov, [facility] [address] [id number] [place] [address] 9957 Nov, [facility] [address] [facility] [id number] [place] [address]- 4079 Oct, [facility] [address] [id number] [place] [address] 1534 Oct, [facility] [address] [id number] [place] [address]- 5270 Sep, [facility] [address] [place] [address]- 0526 Sep, [facility] [address] [id number] [place] [address]- 6935 August, [facility] [address] [id number] [place] [address]- 0736 May, [facility] [address] [id number] [address] 75[address] Mar, Paranoid schizophrenia, chronic condition F20.0 ; Encounter for long-term (current) use of other medications Z79.899 and Generalized anxiety disorder F41.1 [facility] [address] [id number] [address] Dec, [facility] [address] [id number] [address] Nov, Paranoid schizophrenia, chronic condition F20.0 ; Generalized anxiety disorder F41.1 and Encounter for long-term (current) use of other medications Z79.899 [facility] [address] [id number] [address] 00[address] Oct, [facility] [address] [address]- 0294 Sep, [facility] [address] [address] 8276 Sep, [facility] [address] [address]- 2906 August, [facility] [id number] [place] [address] 85312- 7605 Jun, [facility] [address] [place] [address] 81302- 6951 May, [facility] [id number] [place] [address] 58789- 4023 Apr, Generalized anxiety disorder F41.1 [facility] [id number] [place] [address] 50783- 5053 Apr, [facility] [address] [address]- 3934 Mar, [facility] [address] [address]- 4752 Mar, [facility] [address] 5314 Feb, [facility] [address] [address]- 6119 Feb, [facility] [address] [address]- 0774 Feb, [facility] [address] [address]- 2904 Jan, Generalized anxiety disorder F41.1 ; Encounter for long- term (current) use of other medications Z79.899 and Paranoid schizophrenia, chronic condition F20.0 [facility] [address] [address]- 5305 Dec, [facility] [place] [facility] [address] [id number] [place] [address]- 4590 Dec, [facility] [place] [facility] [address] [id number] [place] [address]- 5601 Dec, [facility] [place] [facility] [address] [id number] [place] [address]- 5881 Nov, [facility] [place] [facility] [address] [id number] [place] [address]- 0221 Oct, [facility] [place] [facility] [address] [id number] [place] [address]- 7693 Oct, [facility] [place] [facility] [address] [id number] [place] [address]- 2772 Oct, [facility] [place] [facility] [address] [id number] [place] [address]- 8407 August, [facility] [place] [facility] [address] [id number] [place] [address]- 4315 Jul, [facility] [place] [facility] [address] [id number] [place] [address]- 0462 Jul, [facility] [place] [facility] [address] [id number] [place] [address]- 2405 Jun, [facility] [place] [facility] [address] [id number] [place] [address]- 5809 Jun, [facility] [place] [facility] [address] [id number] [place] [address]- 2234 May, [facility] [place] [facility] [address] [id number] [place] [address]- 6554 May, [facility] [place] [facility] [address] [id number] [place] [address]- 6247 May, [facility] [place] [facility] [address] [id number] [place] [address]- 6123 May, [facility] [place] [facility] [address] [id number] [place] [address]- 7650 15 Apr, 2014 [facility] [address] [id number] [place] [address]- 3864 Apr, [facility] [place] [facility] [address] [id number] [place] [address] Mar, [facility] [address] [id number] [place] [address]- 7382 Mar, [facility] [place] [facility] [address] [id number] [place] [address]- 2132 Mar, [facility] [address] [id number] [place] [address]- 9491 Mar, [facility] [place] [facility] [address] [id number] [place] [address]- 6032 Mar, [facility] [address] [id number] [place] [address]- 8095 Mar, [facility] [place] [facility] [address] [id number] [place] [address]- 9030 Feb, [facility] [place] [facility] [address] [id number] [place] [address]- 3695 Feb, [facility] [address] [facility] [id number] [place] [address]- 5757 Jan, [facility] [place] [facility] [address] [id number] [place] [address]- 7242 Jan, [facility] [place] [facility] [address] [id number] [place] [address]- 5436 Jan, [facility] [place] [facility] [address] [id number] [place] [address]- 0434 Jan, [facility] [place] [facility] [address] [id number] [place] [address]- 8247 Dec, [facility] [place] [facility] [address] [id number] [place] [address]- 6097 Dec, [facility] [place] [facility] [address] [id number] [place] [address]- 1394 Nov, [facility] [place] [facility] [address] [id number] [place] [address]- 4398 Nov, [facility] [place] [facility] [address] [id number] [place] [address]- 6239 Nov, [facility] [place] [facility] [address] [id number] [place] [address]- 2900 Nov, [facility] [place] [facility] [address] [id number] [place] [address]- 2080 Oct, [facility] [place] [facility] [address] [id number] [place] [address]- 6850 Oct, [facility] [place] [facility] [address] [id number] [place] [address]- 0746 Oct, [facility] [place] [facility] [address] [id number] [place] [address]- 9530 Oct, [facility] [place] [facility] [address] [id number] [place] [address]- 3560 Sep, [facility] [place] [facility] [address] [id number] [place] [address]- 0092 Sep, [facility] [place] [facility] [address] [id number] [place] [address]- 8354 Sep, [facility] [place] [facility] [address] [id number] [place] [address]- 8715 Sep, [facility] [place] [facility] [address] [id number] [place] [address]- 9666 Sep, [facility] [place] [facility] [address] [id number] [place] [address]- 0036 Sep, [facility] [place] [facility] [address] [id number] [place] [address]- 7370 August, [facility] [place] [facility] [address] [id number] [place] [address]- 6729 August, [facility] [place] [facility] [address] [id number] [place] [address]- 3789 August, [facility] [place] [facility] [address] [id number] [place] [address]- 6398 Jul, [facility] [place] [facility] [address] [id number] [place] [address]- 2419 Jul, [facility] [place] [facility] [address] [id number] [place] [address]- 3591 Jul, [facility] [place] [facility] [address] [id number] [place] [address]- 4631 Jul, [facility] [place] [facility] [address] [id number] [place] [address]- 0397 Jun, [facility] [place] [facility] [address] [id number] [place] [address]- 2308 Jun, [facility] [place] [facility] [address] [id number] [place] [address]- 3946 Jun, [facility] [place] [facility] [address] [id number] [place] [address]- 6966 Jun, [facility] [place] [facility] [address] [id number] [place] [address]- 2845 Jun, [facility] [place] [facility] [address] [id number] [place] [address]- 2598 Jun, [facility] [place] [facility] [address] [id number] [place] [address]- 2442 Jun, [facility] [place] [facility] [address] [id number] [place] [address]- 1398 Jun, [facility] [place] [facility] [address] [id number] [place] [address]- 8893 May, [facility] [place] [facility] [address] [id number] [place] [address]- 4526 May, [facility] [place] [facility] [address] [id number] [place] [address]- 7728 12 May, 2013 [facility] [place] [facility] [address] [id number] [place] 2476 May, 2013 [facility] [place] [facility] [address] [id number] [place] [address]- 0326 May, 2013 [facility] [place] [facility] [address] [id number] [place] [address]- 4946 May, 2013 [facility] [place] [facility] [address] [id number] [place] [address]- 1446 May, 2013 [facility] [place] [facility] [address] [id number] [place] [address]- 6203 Mar, [facility] [place] [facility] [address] [id number] [place] [address]- 9278 Mar, [facility] [place] [facility] [address] [id number] [place] [address]- 8872 Mar, [facility] [place] [facility] [address] [id number] [place] [address]- 7470 Mar, [facility] [place] [facility] [address] [facility] [id number] [place] [address]- 3065 Mar, [facility] [place] [facility] [address] [facility] [id number] [place] [address]- 2478 Mar, [facility] [place] [facility] [address] [id number] [place] [address]- 5788 Mar, [facility] [place] [facility] [address] [id number] [place] [address]- 2714 Feb, [facility] [place] [facility] [address] [id number] [place] [address]405 Feb, [facility] [place] [facility] [address] [id number] [place] [address]- 0495 Feb, [facility] [place] [facility] [address] [id number] [place] [address]- 7646 Jan, [facility] [address] [id number] [place] [address]- 6573 30 Jan, 2013 [facility] [place] [facility] [address] [id number] [place] [address]- 1154 Jan, [facility] [place] [facility] [address] [id number] [place] [address]- 0877 Jan, [facility] [place] [facility] [address] [id number] [place] [address]- 9724 Nov, [facility] [place] [facility] [address] [id number] [place] [address]- 3262 Nov, [facility] [place] [facility] [address] [id number] [place] [address]- 7523 Nov, [facility] [place] [facility] [address] [id number] [place] [address]- 3130 August, [facility] [place] [facility] [address] [id number] [place] [address]- 9303 August, [facility] [place] [facility] [address] [id number] [place] [address]- 0823 August, [facility] [place] [facility] [address] [id number] [place] [address]- 7353 Jul, [facility] [place] [facility] [address] [id number] [place] [address]- 8250 Jul, [facility] [place] [facility] [address] [id number] [place] [address]- 4344 Jul, [facility] [place] [facility] [address] [id number] [place] [address]- 6002 Jul, [facility] [place] [facility] [address] [id number] [place] [address]- 5226 14 Jun, 2012 [facility] [place] [facility] [address] [id number] [place] [address]- 0101 07 Jun, 2012 [facility] [place] [facility] [address] [id number] [place] [address]- 9276 18 May, 2012 [facility] [address] [id number] [place] [address]- 0663 Apr, [facility] [address] [id number] [place] [address] 2546 Apr, [facility] [address] [id number] [place] [address]- 5706 Apr, [facility] [address] [id number] [place] [address]- 1684 Apr, [facility] [address] [id number] [place] [address]- 9959 Apr, [facility] [address] [id number] [place] [address]- 6731 Apr, [facility] [address] [id number] [place] [address]- 2936 Apr, [facility] [address] [id number] [place] [address]- 2911 Apr, [facility] [address] [id number] [place] [address]- 4725 Apr, [facility] [address] [id number] [place] [address]- 1438 Apr, [facility] [address] [id number] [place] [address]- 9969 Mar, [facility] [address] [id number] [place] [address]- 6332 Mar, [facility] [address] [id number] [place] [address]- 1036 Mar, [facility] [address] [id number] [place] [address]- 2546 Mar, [facility] [address] [id number] [place] [address]- 0414 Mar, [facility] [place] [facility] [address] [id number] [place] [address]- 6279 Mar, [facility] [place] [facility] [address] [id number] [place] [address]- 0661 Mar, [facility] [place] [facility] [address] [id number] [place] [address]- 1103 Mar, [facility] [place] [facility] [address] [id number] [place] [address]- 6945 Mar, [facility] [place] [facility] [address] [id number] [place] [address]- 3197 Mar, [facility] [place] [facility] [address] [id number] [place] [address]- 2614 Mar, [facility] [place] [facility] [address] [id number] [place] [address]- 1969 Mar, [facility] [place] [facility] [address] [id number] [place] [address]- 1936 Mar, [facility] [place] [facility] [address] [id number] [place] [address]- 0585 Mar, [facility] [place] [facility] [address] [id number] [place] [address]- 0918 Feb, [facility] [place] [facility] [address] [id number], [place] [address]- 2796 Feb, [facility] [place] [facility] [address] [id number], [place] [address]- 3973 Feb, [facility] [place] [facility] [address] [id number] [place] [address]- 8928 Feb, [facility] [place] [facility] [address] [id number], [place] [address]- 7573 Jan, [facility] [place] [facility] [address] [id number] [place] [address]- 8767 Jan, [facility] [place] [facility] [address] [id number] [place] [address]- 2011 26 Dec, 2011 [facility] [place] [facility] [address] [id number] [place] [address]- 2741 05 Dec, 2011 [facility] [place] [facility] [address] [id number] [place] [address]- 3116 Dec, [facility] [place] [facility] [address] [id number] [place] [address]- 1290 Nov, [facility] [place] [facility] [address] [id number] [place] [address]- 8652 Nov, [facility] [place] [facility] [address] [id number] [place] [address]- 1734 Oct, [facility] [place] [facility] [address] [id number] [place] [address] Sep, [facility] [place] [facility] [address] [id number] [place] [address] Sep, [facility] [place] [facility] [address] [id number] [place] [address] August, [facility] [place] [facility] [address] [id number] [place] [address] August, [facility] [place] [facility] [address] [id number] [place] [address] Jul, [facility] [place] [facility] [address] [id number] [place] [address] Jul, [facility] [place] [facility] [address] [id number] [place] [address] Jun, [facility] [place] [facility] [address] [id number] [place] [address] Jun, [facility] [place] [facility] [address] [id number] [place] [address] Jun, [facility] [place] [facility] [address] [id number] [place] [address] Jun, [facility] [place] [facility] [address] [id number] [place] [address] May, [facility] [place] [facility] [address] [id number] [place] [address] May, [facility] [place] [facility] [address] [id number] [place] [address] May, [facility] [place] [facility] [address] [id number] [place] [address] May, [facility] [place] [facility] [address] [id number] [place] [address] May, [facility] [place] [facility] [address] [id number] [place] [address] Apr, [facility] [place] [facility] [address] [id number] [place] [address] Apr, [facility] [place] [facility] [address] [id number] [place] [address] Apr, [facility] [place] [facility] [address] [id number] [place] [address] Apr, [facility] [place] [facility] [address] [id number] [place] [address] Apr, [facility] [place] [facility] [address] [id number] [place] [address] Apr, [facility] [place] [facility] [address] [id number], [place] [address] Apr, [facility] [place] [facility] [address] [id number] [place] [address] Mar, [facility] [place] [facility] [address] [id number] [place] [address] Feb, [facility] [place] [facility] [address] [id number] [place] [address] Feb, [facility] [place] [facility] [address] [id number], [place] [address] Feb, [facility] [id number] [address] Feb, [facility] [id number] [address] Feb, [facility] [id number] [address] Jan, [facility] [id number] [address] Jan, [facility] [id number] [address] Jan, [facility] [id number] [address] Jan, [facility] [id number] [place] [address] Nov, [facility] [id number] [address] Sep, [facility] [id number] [address] Jul, [facility] [id number] [address] Apr, IMMUNIZATIONS No Known Immunizations SOCIAL HISTORY Never Assessed REASON FOR VISIT alia refill PLAN OF CARE VITAL SIGNS MEDICATIONS Medication Instructions Dosage Frequency Start Date End Date Duration Status Clonazepam 1 MG Orally 3 times a day for anxiety 1 tablet Active RESULTS No Results PROCEDURES No Known procedures INSTRUCTIONS MEDICATIONS ADMINISTERED No Known Medications
--- OUTSIDE RECORDS SUMMARY | 2018-01-09 01:07 | XMS REPORT ---
Author Author [facility]INCESS [facility] Address [address] [place] [address] Care Team Providers Care Payroll Accounting Clerk Name Role Phone KALPESH SÁNCHEZ Unavailable PROBLEMS Type Condition ICD9-CM Code QTY80-AZ Code Onset Dates Condition Status SNOMED Code Problem Paranoid schizophrenia, chronic condition with acute exacerbation 295.34 Active 348869378 Problem Other psoriasis 696.1 Active 1520761 Problem Paranoid schizophrenia, chronic condition F20.0 Active 50399386 Problem Generalized anxiety disorder F41.1 Active 81277462 Problem Encounter for long-term (current) use of other medications Z79.899 Active [id number] ALLERGIES No Information ENCOUNTERS Encounter Location Date Diagnosis [facility] [id number] [place] [address]- 5194 Jul, [facility] [id number] [place] [address] 64112- 5394 Apr, [facility] [id number] [place] [address] 26912- 6958 Mar, Paranoid schizophrenia, chronic condition F20.0 ; Generalized anxiety disorder F41.1 and Encounter for long-term (current) use of other medications Z79.899 [facility] [address] [address] Feb, [facility] [id number] [address] Dec, Paranoid schizophrenia, chronic condition F20.0 ; Generalized anxiety disorder F41.1 and Encounter for long-term (current) use of other medications Z79.899 [facility] [address] [id number] [address] Nov, [facility] [address] [address] 2546 Nov, [facility] [id number] [place] [address] 24[address] Nov, [facility] [address] [id number] [address] 5[address] Oct, [facility] [id number] [place] [address]- 1744 Oct, [facility] [id number] [address] 49[address] Sep, [facility] [id number] [place] [address] 33[address] Sep, [facility] [address] [address] 8416 August, [facility] [id number] [address] May, [facility] [address] [address] Mar, Paranoid schizophrenia, chronic condition F20.0 ; Encounter for long-term (current) use of other medications Z79.899 and Generalized anxiety disorder F41.1 [facility] [address] [address] Dec, [facility] [address] [address]- 80[address] Nov, Paranoid schizophrenia, chronic condition F20.0 ; Generalized anxiety disorder F41.1 and Encounter for long-term (current) use of other medications Z79.899 [facility] [address] [id number] [address] 1756 Oct, [facility] [id number] [address] 5[address] Sep, [facility] [address] [address]- 4713 Sep, [facility] [address] [address] 3[address] August, [facility] [address] [address]- 6061 Jun, [facility] [address] [address]- 1489 May, [facility] [id number] [place] [address] 65214- 3321 Apr, Generalized anxiety disorder F41.1 [facility] [id number] [place] [address] 04009- 2040 Apr, [facility] [id number] [address] Mar, [facility] [id number] [place] [address] 44882- 8236 Mar, [facility] [address] [address]- 1751 Feb, [facility] [id number] [place] [address] 302529- 3495 Feb, [facility] [address] [address]- 0723 Feb, [facility] [address] 93[address] Jan, Generalized anxiety disorder F41.1 ; Encounter for long- term (current) use of other medications Z79.899 and Paranoid schizophrenia, chronic condition F20.0 [facility] [address] 67[address] Dec, [facility] [address] 9228 Dec, [facility] [address] [address] Dec, [facility] [place] [facility] [address] [id number] [place] [address]- 4392 Nov, [facility] [place] [facility] [address] [id number] [place] [address]- 5623 Oct, [facility] [place] [facility] [address] [id number] [place] [address]- 5229 Oct, [facility] [place] [facility] [address] [id number] [place] [address]- 2587 Oct, [facility] [place] [facility] [address] [id number] [place] [address]- 5378 August, [facility] [place] [facility] [address] [id number] [place] [address]- 5183 Jul, [facility] [place] [facility] [address] [id number] [place] [address]- 3167 Jul, [facility] [place] [facility] [address] [id number] [place] [address]- 5210 Jun, [facility] [place] [facility] [address] [id number] [place] [address]- 7159 Jun, [facility] [place] [facility] [address] [id number] [place] [address]- 6529 May, [facility] [place] [facility] [address] [id number] [place] [address]- 5190 May, [facility] [place] [facility] [address] [id number] [place] [address]- 9331 May, [facility] [place] [facility] [address] [id number] [place] [address]- 9931 May, [facility] [place] [facility] [address] [id number] [place] [address]- 0926 Apr, [facility] [place] [facility] [address] [id number] [place] [address]- 2273 Apr, [facility] [place] [facility] [address] [id number] [place] [address]- 0497 Mar, [facility] [place] [facility] [address] [id number] [place] [address]- 9961 Mar, [facility] [place] [facility] [address] [id number] [place] [address]- 3115 Mar, [facility] [place] [facility] [address] [id number] [place] [address]- 3369 Mar, [facility] [place] [facility] [address] [id number] [place] [address]- 7453 Mar, [facility] [place] [facility] [address] [id number] [place] [address]- 5847 Mar, [facility] [place] [facility] [address] [id number] [place] [address]- 8244 Feb, [facility] [place] [facility] [address] [id number] [place] [address]- 5762 Feb, [facility] [place] [facility] [address] [id number] [place] [address]- 9102 Jan, [facility] [place] [facility] [address] [id number] [place] [address]- 1031 Jan, [facility] [place] [facility] [address] [facility] [id number] [place] [address]- 4707 Jan, [facility] [place] [facility] [address] [id number] [place] [address]- 2548 Jan, [facility] [place] [facility] [address] [id number] [place] [address]- 1695 Dec, [facility] [place] [facility] [address] [id number] [place] [address]- 2316 Dec, [facility] [place] [facility] [address] [id number] [place] [address]- 2761 Nov, [facility] [place] [facility] [address] [id number] [place] [address]- 9219 Nov, [facility] [place] [facility] [address] [id number] [place] [address]- 4171 Nov, [facility] [place] [facility] [address] [id number] [place] [address]- 9699 Nov, [facility] [place] [facility] [address] [id number] [place] [address]- 4593 Oct, [facility] [place] [facility] [address] [id number] [place] [address]- 2962 Oct, [facility] [place] [facility] [address] [id number] [place] [address]- 5248 Oct, [facility] [place] [facility] [address] [id number] [place] [address]- 3376 Oct, [facility] [place] [facility] [address] [id number] [place] [address]- 2525 Sep, [facility] [place] [facility] [address] [id number] [place] [address]- 9302 Sep, [facility] [place] [facility] [address] [id number] [place] [address]- 3929 Sep, [facility] [place] [facility] [address] [id number] [place] [address]- 1693 Sep, [facility] [place] [facility] [address] [id number] [place] [address]- 9961 Sep, [facility] [place] [facility] [address] [id number] [place] [address]- 2081 Sep, [facility] [place] [facility] [address] [id number] [place] [address]- 7320 August, [facility] [place] [facility] [address] [id number] [place] [address]- 8158 August, [facility] [place] [facility] [address] [id number] [place] [address]- 8329 August, [facility] [place] [facility] [address] [id number] [place] [address]- 1114 Jul, [facility] [place] [facility] [address] [id number] [place] [address]- 9763 Jul, [facility] [place] [facility] [address] [id number] [place] [address] Jul, [facility] [place] [facility] [address] [id number] [place] [address]- 7566 Jul, [facility] [place] [facility] [address] [id number] [place] [address]- 4940 Jun, [facility] [place] [facility] [address] [id number] [place] [address]- 0026 Jun, [facility] [place] [facility] [address] [id number] [place] [address]- 4181 Jun, [facility] [place] [facility] [address] [id number] [place] [address]- 3044 Jun, [facility] [place] [facility] [address] [id number] [place] [address]- 7015 Jun, [facility] [place] [facility] [address] [id number] [place] [address]- 0683 Jun, [facility] [place] [facility] [address] [facility] [id number] [place] [address]- 5560 Jun, [facility] [place] [facility] [address] [id number] [place] [address]- 8895 Jun, [facility] [place] [facility] [address] [id number] [place] [address]- 5572 May, [facility] [place] [facility] [address] [id number] [place] [address]- 3291 May, [facility] [place] [facility] [address] [id number] [place] [address]- 4004 May, [facility] [place] [facility] [address] [facility] [id number] [address]- 3712 May, [facility] [place] [facility] [address] [id number] [place] [address]- 3089 May, 2013 [facility] [place] [facility] [address] [id number] [place] [address]- 3256 May, 2013 [facility] [place] [facility] [address] [id number] [place] [address]- 6056 May, 2013 [facility] [place] [facility] [address] [id number] [place] [address]- 4226 Mar, [facility] [place] [facility] [address] [id number] [place] [address]- 0332 Mar, [facility] [place] [facility] [address] [id number] [place] [address]- 7203 Mar, [facility] [place] [facility] [address] [id number] [place] [address]- 2856 Mar, [facility] [place] [facility] [address] [id number] [place] [address]- 8251 Mar, [facility] [place] [facility] [address] [id number] [place] [address]- 3509 Mar, [facility] [place] [facility] [address] [id number] [place] [address]- 0360 Mar, [facility] [place] [facility] [address] [id number] [place] [address]- 7134 Feb, [facility] [place] [facility] [address] [id number] [place] [address]- 7477 Feb, [facility] [place] [facility] [address] [id number] [place] [address]- 0604 Feb, [facility] [place] [facility] [address] [id number] [place] [address]- 9816 Jan, [facility] [place] [facility] [address] [id number] [place] [address]- 4068 Jan, [facility] [place] [facility] [address] [id number] [place] [address]- 5300 Jan, [facility] [address] [id number] [place] [address]- 9716 Jan, [facility] [place] [facility] [address] [id number] [place] [address]- 4928 Nov, [facility] [place] [facility] [address] [id number] [place] [address]- 0009 Nov, [facility] [place] [facility] [address] [id number] [place] [address]- 1916 Nov, [facility] [place] [facility] [address] [id number] [place] [address]- 1957 August, [facility] [place] [facility] [address] [id number] [place] [address]- 1336 August, [facility] [address] [id number] [place] [address]- 2861 August, [facility] [place] [facility] [address] [id number] [place] [address]- 5693 Jul, [facility] [place] [facility] [address] [id number] [place] [address]- 3152 Jul, [facility] [place] [facility] [address] [id number] [place] [address]- 7976 Jul, [facility] [place] [facility] [address] [id number] [place] [address]- 4625 Jul, [facility] [place] [facility] [address] [id number] [place] [address]- 7852 Jun, [facility] [place] [facility] [address] [id number] [place] [address]- 0996 Jun, [facility] [place] [facility] [address] [id number] [place] [address]- 3872 May, [facility] [place] [facility] [address] [id number] [place] [address]- 9611 Apr, [facility] [place] [facility] [address] [id number] [place] [address]- 4698 29 Apr, 2012 [facility] [address] [id number] [place] [address]- 8244 21 Apr, 2012 [facility] [address] [id number] [place] [address] 2546 16 Apr, 2012 [facility] [address] [id number] [place] [address]- 5744 14 Apr, 2012 [facility] [address] [id number] [place] [address]- 4980 10 Apr, 2012 [facility] [address] [id number] [place] [address]- 7235 Apr, [facility] [address] [id number] [place] [address]- 4826 Apr, [facility] [address] [id number] [place] [address]- 3467 Apr, [facility] [address] [id number] [place] [address]- 5204 Apr, [facility] [address] [id number] [place] [address]- 6086 Mar, [facility] [address] [id number] [place] [address]- 8824 28 Mar, 2012 [facility] [address] [id number] [place] [address]- 4829 Mar, [facility] [address] [id number] [place] [address]- 4009 Mar, [facility] [address] [id number] [place] [address]- 6886 Mar, [facility] [address] [id number] [place] [address]- 4276 Mar, [facility] [address] [id number] [place] [address]- 7784 Mar, [facility] [place] [facility] [address] [id number] [place] [address]- 1010 Mar, [facility] [place] [facility] [address] [id number] [place] [address]- 8258 Mar, [facility] [place] [facility] [address] [id number] [place] 4174 Mar, [facility] [place] [facility] [address] [id number] [place] [address]- 4540 Mar, [facility] [place] [facility] [address] [id number] [place] [address]- 9374 Mar, [facility] [place] [facility] [address] [id number] [place] [address]- 6246 Mar, [facility] [place] [facility] [address] [id number] [place] [address]- 4146 Mar, [facility] [place] [facility] [address] [id number] [place] [address]- 6015 Feb, [facility] [place] [facility] [address] [id number] [place] [address]- 2823 Feb, [facility] [place] [facility] [address] [id number], [place] [address]- 6989 Feb, [facility] [place] [facility] [address] [id number], [place] [address]- 4431 Feb, [facility] [place] [facility] [address] [id number], [place] [address]- 1722 Jan, [facility] [place] [facility] [address] [id number] [place] [address]- 8012 Jan, [facility] [place] [facility] [address] [id number], [place] [address]- 1894 Dec, [facility] [place] [facility] [address] [id number] [place] [address]- 2149 Dec, [facility] [place] [facility] [address] [id number] [place] [address]- 0067 Dec, [facility] [place] [facility] [address] [id number] [place] [address]- 5454 Nov, [facility] [place] [facility] [address] [id number] [place] [address]- 3412 Nov, [facility] [place] [facility] [address] [id number] [place] [address]- 9680 Oct, [facility] [place] [facility] [address] [id number] [place] [address]- 1762 Sep, [facility] [place] [facility] [address] [id number] [place] [address]- 9146 Sep, [facility] [place] [facility] [address] [id number] [place] [address]- 5803 August, [facility] [place] [facility] [address] [id number] [place] [address]- 0262 August, [facility] [place] [facility] [address] [id number] [place] [address]- 5294 Jul, [facility] [place] [facility] [address] [id number] [place] [address]- 8063 Jul, [facility] [place] [facility] [address] [id number] [place] [address]- 4083 Jun, [facility] [place] [facility] [address] [id number] [place] [address]- 9388 Jun, [facility] [place] [facility] [address] [id number] [place] [address]- 0994 Jun, [facility] [place] [facility] [address] [id number] [place] [address]- 2521 Jun, [facility] [place] [facility] [address] [id number] [place] [address]- 1974 May, [facility] [place] [facility] [address] [id number] [place] [address]- 1407 May, [facility] [place] [facility] [address] [id number] [place] [address]- 7232 May, [facility] [place] [facility] [address] [id number] [place] [address]- 9776 May, [facility] [place] [facility] [address] [id number] [place] [address]- 8761 May, [facility] [place] [facility] [address] [id number] [place] [address]- 7036 Apr, [facility] [place] [facility] [address] [id number] [place] [address]- 7688 Apr, [facility] [place] [facility] [address] [id number] [place] [address]- 1520 Apr, [facility] [place] [facility] [address] [id number] [place] [address]- 5212 Apr, [facility] [place] [facility] [address] [id number] [place] [address]- 0011 Apr, [facility] [place] [facility] [address] [id number] [place] [address]- 8350 Apr, [facility] [place] [facility] [address] [id number] [place] [address]- 2085 Apr, [facility] [place] [facility] [address] [id number] [place] [address]- 1481 Mar, [facility] [place] [facility] [address] [id number], [place] [address]- 8607 Feb, [facility] [place] [facility] [address] [id number] [place] [address] Feb, [facility] [place] [facility] [address] [id number] [place] [address] Feb, [facility] [place] [facility] [address] [id number], [place] [address] Feb, [facility] [place] [facility] [address] [id number], [place] [address] Feb, [facility] [id number] [address] Jan, [facility] [id number] [address] Jan, [facility] [id number] [address] Jan, [facility] [id number] [place] [address] Jan, [facility] [id number] [place] [address] Nov, [facility] [id number] [address] Sep, [facility] [id number] [address] Jul, [facility] [id number] [address] Apr, IMMUNIZATIONS No Known Immunizations SOCIAL HISTORY Never Assessed REASON FOR VISIT Refill request PLAN OF CARE VITAL SIGNS MEDICATIONS Unknown Medications RESULTS No Results PROCEDURES No Known procedures INSTRUCTIONS MEDICATIONS ADMINISTERED No Known Medications
--- OUTSIDE RECORDS SUMMARY | 2018-01-09 01:07 | XMS REPORT ---
Author Author KALPESH SÁNCHEZ [employer] Address Unknown Phone Unavailable Care Team Providers Care Plater Barrel Name Role Phone KALPESH SÁNCHEZ CP Unavailable [...]
--- OUTSIDE RECORDS SUMMARY | 2018-01-09 01:08 | XMS REPORT ---
Author Author PRINCESS KALPESH [facility] Address [address] [place] [address] Care Team Providers Care Casting House Worker Name Role Phone KALPESH SÁNCHEZ Unavailable PROBLEMS Type Condition ICD9-CM Code SSR58-OY Code Onset Dates Condition Status SNOMED Code Problem Paranoid schizophrenia, chronic condition with acute exacerbation 295.34 Active 611142953 Problem Other psoriasis 696.1 Active 7514651 Problem Paranoid schizophrenia, chronic condition F20.0 Active 96524059 Problem Generalized anxiety disorder F41.1 Active 49619244 Problem Encounter for long-term (current) use of other medications Z79.899 Active [id number] ALLERGIES No Information ENCOUNTERS Encounter Location Date Diagnosis [facility] [id number] [place] [address]999- 6370 Jul, [facility] [id number] [place] [address] 59561- 3659 Jul, [facility] [id number] [place] [address] 44747- 6230 Apr, [facility] [id number] [place] [address] 14555- 5481 Mar, Paranoid schizophrenia, chronic condition F20.0 ; Generalized anxiety disorder F41.1 and Encounter for long-term (current) use of other medications Z79.899 [facility] [id number] [address] 65[address] Feb, [facility] [id number] [place] [address] 9[address]23- 2066 Dec, Paranoid schizophrenia, chronic condition F20.0 ; Generalized anxiety disorder F41.1 and Encounter for long-term (current) use of other medications Z79.899 [facility] [address] [id number] [address] Nov, [facility] [address] [facility] [id number] [place] [address]- 0176 Nov, [facility] [address] [facility] [id number] [place] [address]- 5076 Nov, [facility] [address] [facility] [id number] [place] [address]- 4969 Oct, [facility] [address] [facility] [id number] [place] [address]- 1407 Oct, [facility] [address] [facility] [id number] [place] [address]- 1541 Sep, [facility] [address] [id number] [place] [address] 0[address] Sep, [facility] [id number] [place] [address] 1073 August, [facility] [address] [id number] [place] [address] 8102 May, [facility] [id number] [address] 0708 Mar, Paranoid schizophrenia, chronic condition F20.0 ; Encounter for long-term (current) use of other medications Z79.899 and Generalized anxiety disorder F41.1 [facility] [id number] [address] 14[address] Dec, [facility] [address] [id number] [address] 3[address] Nov, Paranoid schizophrenia, chronic condition F20.0 ; Generalized anxiety disorder F41.1 and Encounter for long-term (current) use of other medications Z79.899 [facility] [id number] [address] 6[address] Oct, [facility] [id number] [address] 2546 Sep, [facility] [id number] [address] 7436 Sep, [facility] [id number] [address] 8746 August, [facility] [id number] [address]- 9546 Jun, [facility] [id number] [address]- 3149 May, [facility] [id number] [address]- 9801 Apr, Generalized anxiety disorder F41.1 [facility] [id number] [address]- 9466 Apr, [facility] [id number] [address]- 0586 Mar, [facility] [id number] [address]- 0677 Mar, [facility] [id number] [address]- 8129 Feb, [facility] [id number] [address]- 8107 Feb, [facility] [address] [address]- 2316 Feb, [facility] [address] [id number] [address]- 0116 Jan, Generalized anxiety disorder F41.1 ; Encounter for long- term (current) use of other medications Z79.899 and Paranoid schizophrenia, chronic condition F20.0 [facility] [id number] 1774 Dec, [facility] [address] [address] Dec, [facility] [place] [facility] [address] [id number] [place] [address]- 5327 Dec, [facility] [place] [facility] [address] [id number] [place] [address]- 3317 Nov, [facility] [place] [facility] [address] [id number] [place] [address]- 3575 Oct, [facility] [place] [facility] [address] [id number] [place] [address]- 4498 Oct, [facility] [place] [facility] [address] [id number] [place] [address]32 Oct, [facility] [place] [facility] [address] [id number] [place] [address]- 3151 August, [facility] [place] [facility] [address] [id number] [place] [address]- 0066 Jul, [facility] [place] [facility] [address] [id number] [place] [address]- 0467 Jul, [facility] [place] [facility] [address] [id number] [place] [address]- 7133 Jun, [facility] [place] [facility] [address] [id number] [place] [address]- 6653 Jun, [facility] [place] [facility] [address] [id number] [place] [address]- 3860 May, [facility] [place] [facility] [address] [id number] [place] [address]- 6792 May, [facility] [place] [facility] [address] [id number] [place] [address]- 3729 May, [facility] [place] [facility] [address] [id number] [place] [address]- 5665 May, [facility] [place] [facility] [address] [id number] [place] [address]- 3853 Apr, [facility] [place] [facility] [address] [id number] [place] [address]- 7308 Apr, [facility] [address] [id number] [place] [address]- 9507 Mar, [facility] [place] [facility] [address] [id number] [place] [address]- 7959 Mar, [facility] [place] [facility] [address] [id number] [place] [address]- 9406 Mar, [facility] [place] [facility] [address] [id number] [place] [address]- 0183 Mar, [facility] [place] [facility] [address] [id number] [place] [address]- 7152 Mar, [facility] [place] [facility] [address] [id number] [place] [address]- 5682 Mar, [facility] [place] [facility] [address] [id number] [place] [address]- 5420 Feb, [facility] [place] [facility] [address] [id number] [place] [address]- 2790 Feb, [facility] [place] [facility] [address] [id number] [place] [address]- 6171 Jan, [facility] [place] [facility] [address] [id number] [place] [address]- 2042 Jan, [facility] [place] [facility] [address] [id number] [place] [address]- 3298 Jan, [facility] [place] [facility] [address] [id number] [place] [address]- 5953 Jan, [facility] [place] [facility] [address] [id number] [place] [address]- 6274 Dec, [facility] [place] [facility] [address] [id number] [place] [address]- 1783 Dec, [facility] [place] [facility] [address] [id number] [place] [address]- 0506 Nov, [facility] [place] [facility] [address] [id number] [place] [address]- 7296 Nov, [facility] [place] [facility] [address] [id number] [place] [address]- 7599 Nov, [facility] [place] [facility] [address] [id number] [place] [address]- 9208 Nov, [facility] [place] [facility] [address] [id number] [place] [address]- 3585 Oct, [facility] [place] [facility] [address] [id number] [place] 7375 Oct, [facility] [place] [facility] [address] [id number] [place] [address]- 8129 Oct, [facility] [place] [facility] [address] [id number] [place] [address]- 8095 Oct, [facility] [place] [facility] [address] [id number] [place] [address]- 7131 Sep, [facility] [place] [facility] [address] [id number] [place] [address]- 8934 Sep, [facility] [place] [facility] [address] [id number] [place] [address]- 2961 Sep, [facility] [place] [facility] [address] [id number] [place] [address]- 6772 Sep, [facility] [place] [facility] [address] [id number] [place] [address]- 5270 Sep, [facility] [place] [facility] [address] [id number] [place] [address]- 4438 Sep, [facility] [place] [facility] [address] [id number] [place] [address]- 6667 August, [facility] [place] [facility] [address] [id number] [place] [address]- 2294 August, [facility] [place] [facility] [address] [id number] [address]- 7885 August, [facility] [address] [id number] [place] [address]- 0574 Jul, [facility] [place] [facility] [address] [id number] [place] [address]- 1081 Jul, [facility] [place] [facility] [address] [id number] [place] [address]- 2965 Jul, [facility] [place] [facility] [address] [id number] [place] [address]- 7758 Jul, [facility] [place] [facility] [address] [id number] [place] [address]- 2425 Jun, [facility] [place] [facility] [address] [id number] [place] [address]- 5171 Jun, [facility] [place] [facility] [address] [id number] [place] [address]- 9336 Jun, [facility] [place] [facility] [address] [id number] [place] [address]- 9265 Jun, [facility] [place] [facility] [address] [id number] [place] [address]- 9941 Jun, [facility] [place] [facility] [address] [facility] [id number] [place] [address]- 7409 Jun, [facility] [place] [facility] [address] [id number] [place] [address]- 1258 Jun, [facility] [place] [facility] [address] [id number] [place] [address]- 5031 Jun, [facility] [place] [facility] [address] [id number] [place] [address]- 2017 May, [facility] [place] [facility] [address] [id number] [place] [address]- 5987 May, [facility] [place] [facility] [address] [facility] [id number] [place] [address]- 7979 May, [facility] [place] [facility] [address] [id number] [place] [address]- 1068 12 May, 2013 [facility] [place] [facility] [address] [id number] [place] 6[address] May, 2013 [facility] [place] [facility] [address] [id number] [place] [address]- 8806 06 May, 2013 [facility] [place] [facility] [address] [id number] [place] [address]- 7364 May, 2013 [facility] [place] [facility] [address] [id number] [place] [address]- 7411 Mar, [facility] [place] [facility] [address] [id number] [place] [address]- 5202 Mar, [facility] [place] [facility] [address] [id number] [place] [address]- 7049 Mar, [facility] [place] [facility] [address] [id number] [place] [address]- 9877 Mar, [facility] [place] [facility] [address] [id number] [place] [address]- 0731 Mar, [facility] [place] [facility] [address] [id number] [place] [address]- 2832 Mar, [facility] [place] [facility] [address] [id number] [place] [address]- 8328 Mar, [facility] [place] [facility] [address] [id number] [place] [address]- 5664 Feb, [facility] [place] [facility] [address] [id number] [place] [address]- 6067 Feb, [facility] [place] [facility] [address] [id number] [place] [address]- 3397 Feb, [facility] [place] [facility] [address] [id number] [place] [address]- 4449 30 Jan, 2013 [facility] [place] [facility] [address] [id number] [place] [address]- 5406 Jan, [facility] [address] [id number] [place] [address]- 4649 Jan, [facility] [place] [facility] [address] [id number] [place] [address]- 6627 Jan, [facility] [place] [facility] [address] [id number] [place] [address]- 7861 Nov, [facility] [place] [facility] [address] [id number] [place] [address]- 6047 Nov, [facility] [place] [facility] [address] [id number] [place] [address]- 4876 Nov, [facility] [place] [facility] [address] [id number] [place] [address]- 8739 August, [facility] [place] [facility] [address] [id number] [place] [address]- 9884 August, [facility] [place] [facility] [address] [id number] [place] [address]- 3809 August, [facility] [place] [facility] [address] [id number] [place] [address]- 0593 Jul, [facility] [place] [facility] [address] [id number] [place] [address]- 9837 Jul, [facility] [place] [facility] [address] [id number] [place] [address]- 8179 Jul, [facility] [place] [facility] [address] [id number] [place] [address]- 1626 Jul, [facility] [place] [facility] [address] [id number] [place] [address]- 6055 Jun, [facility] [place] [facility] [address] [id number] [place] [address]- 7494 Jun, [facility] [place] [facility] [address] [id number] [place] [address]- 9488 May, [facility] [place] [facility] [address] [id number] [place] [address]- 3093 31 Apr, 2012 [facility] [address] [id number] [place] [address]- 1531 29 Apr, 2012 [facility] [address] [id number] [place] [address]- 2836 Apr, [facility] [address] [id number] [place] [address]- 4359 16 Apr, 2012 [facility] [address] [id number] [place] [address]- 1782 14 Apr, 2012 [facility] [address] [id number] [place] [address]- 5093 Apr, [facility] [address] [id number] [place] [address]- 8004 Apr, [facility] [address] [id number] [place] [address]- 0925 Apr, [facility] [address] [id number] [place] [address]- 8828 Apr, [facility] [address] [id number] [place] [address]- 5505 Apr, [facility] [address] [id number] [place] [address]- 3915 Mar, [facility] [address] [id number] [place] [address]- 5221 Mar, [facility] [address] [id number] [place] [address]- 3374 Mar, [facility] [address] [id number] [place] [address]- 4426 Mar, [facility] [address] [id number] [place] [address]- 2546 Mar, [facility] [address] [id number] [place] [address]- 4528 Mar, [facility] [place] [facility] [address] [id number] [place] [address]- 2871 Mar, [facility] [place] [facility] [address] [id number] [place] [address]- 2175 Mar, [facility] [place] [facility] [address] [id number] [place] [address]- 8706 Mar, [facility] [place] [facility] [address] [id number] [place] [address]- 4597 Mar, [facility] [place] [facility] [address] [id number] [place] [address]- 1508 Mar, [facility] [place] [facility] [address] [id number] [place] [address]- 7899 Mar, [facility] [place] [facility] [address] [id number] [place] [address]- 7338 Mar, [facility] [place] [facility] [address] [id number] [place] [address]- 3669 Mar, [facility] [place] [facility] [address] [id number] [place] [address]- 7355 Feb, [facility] [place] [facility] [address] [id number] [place] [address]- 9572 Feb, [facility] [place] [facility] [address] [id number], [place] [address]- 0177 Feb, [facility] [place] [facility] [address] [id number], [place] [address]- 0177 Feb, [facility] [place] [facility] [address] [id number] [place] [address]- 8559 Jan, [facility] [place] [facility] [address] [id number], [place] [address]- 3006 Jan, [facility] [place] [facility] [address] [id number] [place] [address]- 6035 Dec, [facility] [place] [facility] [address] [id number] [place] [address] 2546 05 Dec, 2011 [facility] [place] [facility] [address] [id number] [place] [address]- 5542 Dec, [facility] [place] [facility] [address] [id number] [place] [address]- 7170 Nov, [facility] [place] [facility] [address] [id number] [place] [address]- 3446 Nov, [facility] [place] [facility] [address] [id number] [place] [address] 2543 Oct, [facility] [place] [facility] [address] [id number] [place] [address]- 0945 Sep, [facility] [place] [facility] [address] [id number] [place] [address]- 2786 Sep, [facility] [address] [id number] [place] [address]- 8696 August, [facility] [place] [facility] [address] [id number] [place] [address]- 3238 August, [facility] [place] [facility] [address] [id number] [place] [address]- 5417 Jul, [facility] [place] [facility] [address] [id number] [place] [address]- 8386 Jul, [facility] [place] [facility] [address] [id number] [place] [address]- 4116 Jun, [facility] [place] [facility] [address] [id number] [place] [address]- 5972 Jun, [facility] [place] [facility] [address] [id number] [place] [address]- 1458 Jun, [facility] [place] [facility] [address] [id number] [place] [address]- 5336 Jun, [facility] [place] [facility] [address] [id number] [place] [address]- 2857 May, [facility] [place] [facility] [address] [id number] [place] [address]- 1645 May, [facility] [place] [facility] [address] [id number] [place] [address]- 8956 May, [facility] [place] [facility] [address] [id number] [place] 9066 May, [facility] [place] [facility] [address] [id number] [place] [address]- 1966 May, [facility] [place] [facility] [address] [id number] [place] [address]- 5258 Apr, [facility] [place] [facility] [address] [id number] [place] [address]- 6182 Apr, [facility] [place] [facility] [address] [id number] [place] [address]- 3168 Apr, [facility] [place] [facility] [address] [id number] [place] [address]- 9807 Apr, [facility] [place] [facility] [address] [id number] [place] [address]- 8178 Apr, [facility] [place] [facility] [address] [id number] [place] [address]- 8836 Apr, [facility] [place] [facility] [address] [id number] [place] [address]- 5307 Apr, [facility] [place] [facility] [address] [id number] [place] [address]- 3608 Mar, [facility] [place] [facility] [address] [id number] [place] [address]- 7876 Feb, [facility] [place] [facility] [address] [id number] [place] [address]- 5766 Feb, [facility] [place] [facility] [address] [id number] [place] [address]- 0771 Feb, [facility] [place] [facility] [address] [id number], [place] [address]- 2546 Feb, [facility] [id number] [address] Feb, [facility] [id number] [address] Jan, [facility] [id number] [address] Jan, [facility] [id number] [place] [address] Jan, [facility] [id number] [place] [address] Jan, [facility] [id number] [place] [address] Nov, [facility] [id number] [address] Sep, [facility] [id number] [address] Jul, [facility] [id number] [address] Apr, IMMUNIZATIONS No Known Immunizations SOCIAL HISTORY Never Assessed REASON FOR VISIT Refill Request Denied PLAN OF CARE VITAL SIGNS MEDICATIONS Unknown Medications RESULTS No Results PROCEDURES No Known procedures INSTRUCTIONS MEDICATIONS ADMINISTERED No Known Medications
--- OUTSIDE RECORDS SUMMARY | 2018-01-09 01:09 | XMS REPORT ---
Author KALPESH Urrutia [employer] Address Unknown Phone Unavailable Care Team Providers Care Supervisor Forming And Tempering Name Role Phone KALPESH SÁNCHEZ CP Unavailable Allergies No Known Allergies Problems Problem Type Condition Code Onset Dates Condition Status Assessment Encounter for long-term (current) use of other medications Z79.899 Active Problem Other psoriasis 696.1 Active Problem Paranoid schizophrenia, chronic condition F20.0 Active Problem Paranoid schizophrenia, chronic condition with acute exacerbation 295.34 Active Assessment Paranoid schizophrenia, chronic condition F20.0 Active Assessment Generalized anxiety disorder F41.1 Active Problem Generalized anxiety disorder F41.1 Active Problem Encounter for long-term (current) use of other medications Z79.899 Active Medications Medication Code System Code Instructions Start Date End Date Status Dosage Loxapine Succinate [facility] [address]-45 10 mg Orally once per day as needed for hallucinations Feb 04, 2015 1 capsule Clonazepam [facility] 07083475598 1 MG Orally Take 1 tablet 4 times a day for anxiety . Invega [facility] 53892832294 6 MG Orally Once a day 2 tablets Procedures Procedure Coding System Code Date Psychotherapy, patient &/family, with E&M, 30 minutes, established patient CPT -4 07511 Nov 25, 2015 Office Visit, Est Pt., Level 4 CPT-4 14371 Nov 25, 2015 Vital Signs Date/Time: Nov 25, 2015 Cardiac Monitoring Heart Rate 90 bpm Weight 180.9 lbs Height 69.75 in BMI 26.14 Index Blood Pressure Diastolic 74 mmHg Blood Pressure Systolic 128 mmHg Results No Known Results Summary Purpose eClinicalWorks Submission
--- OUTSIDE RECORDS SUMMARY | 2018-01-09 01:09 | XMS REPORT ---
Author Author KALPESH SÁNCHEZ e[employer] Address Unknown Phone Unavailable Care Team Providers Care Agronomy Supervisor Name Role Phone KALPESH SÁNCHEZ CP [...] Instructions Start Date End Date Status Dosage [facility] [address]-96 3 MG Once a day Nov 22, 2012 4 tablets Results No Known Results Summary Purpose eClinicalWorks Submission
--- OUTSIDE RECORDS SUMMARY | 2018-01-09 01:10 | XMS REPORT ---
Author Author KALPESH SÁNCHEZ e[employer] Address Unknown Phone Unavailable Care Team Providers Care Divine Healer Name Role Phone KALPESH SÁNCHEZ CP Unavailable [...] Start Date End Date Status Dosage Clonazepam [facility] [id number] 1 MG TAKE ONE TABLET BY MOUTH THREE TIMES DAILY NEEDED FOR ANXIETY (MUST LAST 30 DAYS) Results No Known Results Summary Purpose eClinicalWorks Submission
--- OUTSIDE RECORDS SUMMARY | 2018-01-09 01:10 | XMS REPORT ---
Author Author PRINCESS KALPES[facility] Address [address] [place] [address] Care Team Providers Care Clamshell Operator Name Role Phone KALPESH SÁNCHEZ Unavailable PROBLEMS Type Condition ICD9-CM Code LUN39-HE Code Onset Dates Condition Status SNOMED Code Problem Paranoid schizophrenia, chronic condition with acute exacerbation 295.34 Active 243112110 Problem Other psoriasis 696.1 Active 7843721 Problem Paranoid schizophrenia, chronic condition F20.0 Active 90120645 Problem Generalized anxiety disorder F41.1 Active 49241820 Problem Encounter for long-term (current) use of other medications Z79.899 Active [id number] ALLERGIES No Information ENCOUNTERS Encounter Location Date Diagnosis [facility] [id number] [place] [address]128- 9297 Jul, [facility] [id number] [place] [address] 36916- 4035 Jul, [facility] [id number] [place] [address] 51644- 7496 Apr, [facility] [id number] [place] [address]35- 6133 Mar, Paranoid schizophrenia, chronic condition F20.0 ; Generalized anxiety disorder F41.1 and Encounter for long-term (current) use of other medications Z79.899 [facility] [address] [address] Feb, [facility] [id number] [place] [address]76- 5418 Dec, Paranoid schizophrenia, chronic condition F20.0 ; Generalized anxiety disorder F41.1 and Encounter for long-term (current) use of other medications Z79.899 [facility] [address] [id number] [address] Nov, [facility] [address] [facility] [id number] [place] [address] 6076 Nov, [facility] [address] [facility] [id number] [place] [address]- 1586 Nov, [facility] [address] [facility] [id number] [place] [address] 7603 Oct, [facility] [address] [facility] [id number] [place] [address]- 3080 Oct, [facility] [address] [facility] [id number] [place] [address]- 0748 Sep, [facility] [address] [id number] [place] [address] Sep, [facility] [id number] [place] [address] 7140 August, [facility] [address] [id number] [place] [address] 5429 May, [facility] [address] [id number] [address] Mar, Paranoid schizophrenia, chronic condition F20.0 ; Encounter for long-term (current) use of other medications Z79.899 and Generalized anxiety disorder F41.1 [facility] [address] [address] Dec, [facility] [address] [id number] [address] 4947 Nov, Paranoid schizophrenia, chronic condition F20.0 ; Generalized anxiety disorder F41.1 and Encounter for long-term (current) use of other medications Z79.899 [facility] [address] [id number] [address]26 Oct, [facility] [address] [id number] [address] 2546 Sep, [facility] [address] [address] 6386 Sep, [facility] [address] [address] 3496 August, [facility] [address] [address] 4856 Jun, [facility] [address] [address] 0281 May, [facility] [address] [address] 3047 Apr, Generalized anxiety disorder F41.1 [facility] [address] [address]- 6226 Apr, [facility] [address] [address]- 0776 Mar, [facility] [address], [place] [address]- 3742 Mar, [facility] [address], [place] [address]- 1552 Feb, [facility] [address], [place] [address]- 4475 Feb, [facility] [address], [place] [address]- 3406 Feb, [facility] [address] [id number], [place] [address] 1256 Jan, Generalized anxiety disorder F41.1 ; Encounter for long- term (current) use of other medications Z79.899 and Paranoid schizophrenia, chronic condition F20.0 [facility] [address] [id number] [address]21 Dec, [facility] [address] [address] Dec, [facility] [place] [facility] [address] [id number] [place] [address]- 3148 Dec, [facility] [place] [facility] [address] [id number] [place] [address]- 6388 Nov, [facility] [place] [facility] [address] [id number] [place] [address]- 5665 Oct, [facility] [place] [facility] [address] [id number] [place] [address]- 0143 Oct, [facility] [place] [facility] [address] [id number] [place] [address] Oct, [facility] [place] [facility] [address] [id number] [place] [address]- 7629 August, [facility] [place] [facility] [address] [id number] [place] [address]- 1249 Jul, [facility] [place] [facility] [address] [id number] [place] [address]- 7997 Jul, [facility] [place] [facility] [address] [id number] [place] [address]- 7001 Jun, [facility] [place] [facility] [address] [id number] [place] [address]- 6741 Jun, [facility] [place] [facility] [address] [id number] [place] [address]- 3464 May, [facility] [place] [facility] [address] [id number] [place] [address]- 6932 May, [facility] [place] [facility] [address] [id number] [place] [address]- 0861 May, [facility] [place] [facility] [address] [id number] [place] [address]- 9172 May, [facility] [place] [facility] [address] [id number] [place] [address]- 2220 Apr, [facility] [place] [facility] [address] [id number] [place] [address]- 3269 Apr, [facility] [address] [id number] [place] [address]- 2531 Mar, [facility] [place] [facility] [address] [id number] [place] [address]- 8407 Mar, [facility] [place] [facility] [address] [id number] [place] [address]- 3265 Mar, [facility] [place] [facility] [address] [id number] [place] [address]- 4048 Mar, [facility] [place] [facility] [address] [id number] [place] [address]- 7417 Mar, [facility] [place] [facility] [address] [id number] [place] [address]- 4166 Mar, [facility] [place] [facility] [address] [id number] [place] [address]- 0202 Feb, [facility] [place] [facility] [address] [id number] [place] [address]- 0333 Feb, [facility] [place] [facility] [address] [id number] [place] [address]- 5511 Jan, [facility] [place] [facility] [address] [id number] [place] [address]- 0793 Jan, [facility] [place] [facility] [address] [id number] [place] [address]- 3969 Jan, [facility] [place] [facility] [address] [id number] [place] [address]- 1715 Jan, [facility] [place] [facility] [address] [id number] [place] [address]- 9184 Dec, [facility] [place] [facility] [address] [id number] [place] [address]- 0483 Dec, [facility] [place] [facility] [address] [id number] [place] [address]- 6680 Nov, [facility] [place] [facility] [address] [id number] [place] [address]- 9259 Nov, [facility] [place] [facility] [address] [id number] [place] [address]- 4254 Nov, [facility] [place] [facility] [address] [id number] [place] [address]- 3910 Nov, [facility] [place] [facility] [address] [id number] [place] [address]- 4557 Oct, [facility] [place] [facility] [address] [id number] [place] 3827 Oct, [facility] [place] [facility] [address] [id number] [place] [address]- 2347 Oct, [facility] [place] [facility] [address] [id number] [place] [address]- 6060 Oct, [facility] [place] [facility] [address] [id number] [place] [address]- 3025 Sep, [facility] [place] [facility] [address] [id number] [place] [address]- 3121 Sep, [facility] [place] [facility] [address] [id number] [place] [address]- 2359 Sep, [facility] [place] [facility] [address] [id number] [place] [address]- 5896 Sep, [facility] [place] [facility] [address] [id number] [place] [address]- 8736 Sep, [facility] [place] [facility] [address] [id number] [place] [address]- 6454 Sep, [facility] [place] [facility] [address] [id number] [place] [address]- 8917 August, [facility] [place] [facility] [address] [id number] [place] [address]- 6221 August, [facility] [place] [facility] [address] [id number], [place] [address]- 7587 August, [facility] [address] [id number] [place] [address]- 4187 Jul, [facility] [place] [facility] [address] [id number] [place] [address]- 2959 Jul, [facility] [place] [facility] [address] [id number] [place] [address]- 5610 Jul, [facility] [place] [facility] [address] [id number] [place] [address]- 5761 Jul, [facility] [place] [facility] [address] [id number] [place] [address]- 9187 Jun, [facility] [place] [facility] [address] [id number] [place] [address]- 8223 Jun, [facility] [place] [facility] [address] [id number] [place] [address]- 4770 Jun, [facility] [place] [facility] [address] [id number] [place] [address]- 7443 Jun, [facility] [place] [facility] [address] [id number] [place] [address]- 8127 Jun, [facility] [place] [facility] [address] [facility] [id number] [place] [address]- 7951 Jun, [facility] [place] [facility] [address] [id number] [place] [address]- 9618 Jun, [facility] [place] [facility] [address] [id number] [place] [address]- 5967 Jun, [facility] [place] [facility] [address] [id number] [place] [address]- 5441 May, [facility] [place] [facility] [address] [id number] [place] [address]- 1402 May, [facility] [place] [facility] [address] [facility] [id number] [place] [address]- 7828 May, [facility] [place] [facility] [address] [id number] [place] [address]- 2896 12 May, 2013 [facility] [place] [facility] [address] [id number] [place] 1020 May, 2013 [facility] [place] [facility] [address] [id number] [place] [address]- 2236 06 May, 2013 [facility] [place] [facility] [address] [id number] [place] [address]- 9590 May, 2013 [facility] [place] [facility] [address] [id number] [place] [address]- 6288 Mar, [facility] [place] [facility] [address] [id number] [place] [address]- 6842 Mar, [facility] [place] [facility] [address] [id number] [place] [address]- 3544 Mar, [facility] [place] [facility] [address] [id number] [place] [address]- 5079 Mar, [facility] [place] [facility] [address] [id number] [place] [address]- 9389 Mar, [facility] [place] [facility] [address] [id number] [place] [address]- 4918 Mar, [facility] [place] [facility] [address] [id number] [place] [address]- 7036 Mar, [facility] [place] [facility] [address] [id number] [place] [address]- 0335 Feb, [facility] [place] [facility] [address] [id number] [place] [address]- 0057 Feb, [facility] [place] [facility] [address] [id number] [place] [address]- 0693 Feb, [facility] [place] [facility] [address] [id number] [place] [address]- 5385 30 Jan, 2013 [facility] [place] [facility] [address] [id number] [place] [address]- 4384 Jan, [facility] [address] [id number] [place] [address]- 3505 Jan, [facility] [place] [facility] [address] [id number] [place] [address]- 1903 Jan, [facility] [place] [facility] [address] [id number] [place] [address]- 3120 Nov, [facility] [place] [facility] [address] [id number] [place] [address]- 5305 Nov, [facility] [place] [facility] [address] [id number] [place] [address]- 9497 Nov, [facility] [place] [facility] [address] [id number] [place] [address]- 7773 August, [facility] [place] [facility] [address] [id number] [place] [address]- 7448 August, [facility] [place] [facility] [address] [id number] [place] [address]- 3792 August, [facility] [place] [facility] [address] [id number] [place] [address]- 8702 Jul, [facility] [place] [facility] [address] [id number] [place] [address]- 6756 Jul, [facility] [place] [facility] [address] [id number] [place] [address]- 8564 Jul, [facility] [place] [facility] [address] [id number] [place] [address]- 2507 Jul, [facility] [place] [facility] [address] [id number] [place] [address]- 2696 Jun, [facility] [place] [facility] [address] [id number] [place] [address]- 4992 Jun, [facility] [place] [facility] [address] [id number] [place] [address]- 4064 May, [facility] [place] [facility] [address] [id number] [place] [address]- 4975 31 Apr, 2012 [facility] [address] [id number] [place] [address]- 2808 29 Apr, 2012 [facility] [address] [id number] [place] [address]- 6296 Apr, [facility] [address] [id number] [place] [address]- 9126 16 Apr, 2012 [facility] [address] [id number] [place] [address]- 5724 14 Apr, 2012 [facility] [address] [id number] [place] [address]- 9369 Apr, [facility] [address] [id number] [place] [address]- 4262 Apr, [facility] [address] [id number] [place] [address]- 0912 Apr, [facility] [address] [id number] [place] [address]- 6225 Apr, [facility] [address] [id number] [place] [address]- 0311 Apr, [facility] [address] [id number] [place] [address]- 0767 Mar, [facility] [address] [id number] [place] [address]- 5146 Mar, [facility] [address] [id number] [place] [address]- 5292 Mar, [facility] [address] [id number] [place] [address]- 0556 Mar, [facility] [address] [id number] [place] [address]- 2546 Mar, [facility] [address] [id number] [place] [address]- 5513 Mar, [facility] [place] [facility] [address] [id number] [place] [address]- 5624 Mar, [facility] [place] [facility] [address] [id number] [place] [address]- 8527 Mar, [facility] [place] [facility] [address] [id number] [place] [address]- 0158 Mar, [facility] [place] [facility] [address] [id number] [place] [address]- 6973 Mar, [facility] [place] [facility] [address] [id number] [place] [address]- 6590 Mar, [facility] [place] [facility] [address] [id number] [place] [address]- 6570 Mar, [facility] [place] [facility] [address] [id number] [place] [address]- 2613 Mar, [facility] [place] [facility] [address] [id number] [place] [address]- 7848 Mar, [facility] [place] [facility] [address] [id number] [place] [address]- 8400 Feb, [facility] [place] [facility] [address] [id number] [place] [address]- 5759 Feb, [facility] [place] [facility] [address] [id number], [place] [address]- 1310 Feb, [facility] [place] [facility] [address] [id number], [place] [address]- 3562 Feb, [facility] [place] [facility] [address] [id number] [place] [address]- 1632 Jan, [facility] [place] [facility] [address] [id number], [place] [address]- 8964 Jan, [facility] [place] [facility] [address] [id number] [place] [address]- 9071 Dec, [facility] [place] [facility] [address] [id number] [place] [address] 2546 05 Dec, 2011 [facility] [place] [facility] [address] [id number] [place] [address]- 1768 Dec, [facility] [place] [facility] [address] [id number] [place] [address]- 0950 Nov, [facility] [place] [facility] [address] [id number] [place] [address]- 4896 Nov, [facility] [place] [facility] [address] [id number] [place] [address] 2543 Oct, [facility] [place] [facility] [address] [id number] [place] [address]- 6365 Sep, [facility] [place] [facility] [address] [id number] [place] [address]- 0026 Sep, [facility] [address] [id number] [place] [address]- 6200 August, [facility] [place] [facility] [address] [id number] [place] [address]- 6212 August, [facility] [place] [facility] [address] [id number] [place] [address]- 1682 Jul, [facility] [place] [facility] [address] [id number] [place] [address]- 0565 Jul, [facility] [place] [facility] [address] [id number] [place] [address]- 7340 Jun, [facility] [place] [facility] [address] [id number] [place] [address]- 7132 Jun, [facility] [place] [facility] [address] [id number] [place] [address]- 7450 Jun, [facility] [place] [facility] [address] [id number] [place] [address]- 0846 Jun, [facility] [place] [facility] [address] [id number] [place] [address]- 3823 May, [facility] [place] [facility] [address] [id number] [place] [address]- 1828 May, [facility] [place] [facility] [address] [id number] [place] [address]- 6606 May, [facility] [place] [facility] [address] [id number] [place] [address]36 May, [facility] [place] [facility] [address] [id number] [place] [address]- 6706 May, [facility] [place] [facility] [address] [id number] [place] [address]- 6140 Apr, [facility] [place] [facility] [address] [id number] [place] [address] Apr, [facility] [place] [facility] [address] [id number] [place] [address] Apr, [facility] [place] [facility] [address] [id number] [place] [address] Apr, [facility] [place] [facility] [address] [id number] [place] [address] Apr, [facility] [place] [facility] [address] [id number] [place] [address] Apr, [facility] [place] [facility] [address] [id number] [place] [address] Apr, [facility] [place] [facility] [address] [id number] [place] [address] Mar, [facility] [place] [facility] [address] [id number] [place] [address] Feb, [facility] [place] [facility] [address] [id number] [place] [address] Feb, [facility] [place] [facility] [address] [id number] [place] [address] Feb, [facility] [place] [facility] [address] [id number], [place] [address] Feb, [facility] [id number] [address] Feb, [facility] [id number] [place] [address] Jan, [facility] [id number] [place] [address] Jan, [facility] [id number] [place] [address] Jan, [facility] [id number] [place] [address] Jan, [facility] [id number] [place] [address] Nov, [facility] [id number] [place] [address] Sep, [facility] [id number] [place] [address] Jul, [facility] [id number] [place] [address] Apr, IMMUNIZATIONS No Known Immunizations SOCIAL HISTORY Never Assessed REASON FOR VISIT LVM PLAN OF CARE VITAL SIGNS MEDICATIONS Unknown Medications RESULTS No Results PROCEDURES No Known procedures INSTRUCTIONS MEDICATIONS ADMINISTERED No Known Medications
--- OUTSIDE RECORDS SUMMARY | 2018-01-09 01:10 | XMS REPORT ---
Author Author KALPESH SÁNCHEZ [employer] Address Unknown Phone Unavailable Care Team Providers Care Milk Drying Machine Operator Name Role Phone KALPESH SÁNCHEZ CP Unavailable Allergies, Adverse Reactions, Alerts Substance Reaction Event Type N.K.D.A. Info Not Available Non Drug Allergy Problems Problem Type Condition Code Onset Dates Condition Status Assessment Paranoid schizophrenia, chronic condition F20.0 Active Problem Generalized anxiety disorder 300.02 Active Problem Paranoid schizophrenia, chronic condition with acute exacerbation 295.34 Active Problem Paranoid schizophrenia, chronic condition 295.32 Active Assessment Generalized anxiety disorder F41.1 Active Assessment Encounter for long-term (current) use of other medications Z79.899 Active Problem Encounter for long-term (current) use of other medications V58.69 Active Problem Other psoriasis 696.1 Active Medications Medication Code System Code Instructions Start Date End Date Status Dosage Clonazepam [facility] [address]-31 1 MG Orally 3 times a day PRN for anxiety July 08, 2014 1 tablet Loxapine Succinate [facility] [address]-26 10 MG Orally in the morning Feb 04, [address] [facility] [address]-54 3 MG Once a day Nov 22, 2012 4 tablets Procedures Procedure Coding System Code Date Office Visit, Est Pt., Level 4 CPT-4 94441 Feb 04, 2015 [facility] VISIT ESTABLISHED PATIENT CPT-4 G0467 Feb 04, 2015 Vital Signs Date/Time: Feb 04, 2015 Cardiac Monitoring Heart Rate 100 bpm Weight 180.2 lbs Height 69.75 in BMI 26.04 Index Blood Pressure Diastolic 86 mmHg Blood Pressure Systolic 130 mmHg Results No Known Results Summary Purpose eClinical[employer] Submission
--- OUTSIDE RECORDS SUMMARY | 2018-01-09 01:11 | XMS REPORT ---
Author Author KALPESH SÁNCHEZ [employer] Address Unknown Phone Unavailable Care Team Providers Care Foot Drill Operator Name Role Phone KALPESH SÁNCHEZ CP [...] Start Date End Date Status Dosage Clonazepam [facility] [address]-82 1 MG Orally 3 times a day PRN July 08, 2014 1 tablet Results No Known Results Summary Purpose eClinicalWorks Submission
--- OUTSIDE RECORDS SUMMARY | 2018-01-09 01:11 | XMS REPORT | Continuity of Care Document ---
Author Author [facility] Organization [facility] Address Unknown Phone Unavailable Care Team Providers Care Sports Photographer Name Role Phone [facility] OF PCP Insurance Providers Payer Name Policy Number Subscriber Name Relationship [employer]MR [id number] Alfredo Li 18 Self / Same As Patient Advance Directives Directive Response Recorded Date/Time Advance Directives No 06/05/15 10:15am Organ Donor Yes 06/05/15 10:15am Resuscitation Status Full Code 06/05/15 10:15am Chief Complaint and Reason for Visit Chief Complaint Trauma-Non Activation Reason for Visit Fracture of transverse process of spine without spinal cordlesion Abrasion Problems Active Problems Medical Problem Onset Date Status Abrasion Unknown Acute Fracture of transverse process of spine without spinal cordlesion Unknown Acute Medications Current Home Medications Medication Dose Units Route Directions Days/Qty Instructions Start Date Paliperidone 9 Mg 05/27/09 Clonazepam 1 Mg 90 06/05/15 Hydrocodone/Acetaminophen 1 Each 1 Each Oral Every 6 Hours as needed for Pain 20 06/05/15 Past Home Medications Medication Directions Ordered Status Trihexyphenidyl Hcl 5 Mg Tablet, 05/27/09 Discontinued Social History Social History Problem Response Recorded Date/Time Alcohol Use Denies Use 06/05/2015 10:15am Recreational Drug Use No 06/05/2015 10:15am Recent Foreign Travel No 06/05/2015 10:15am Recent Infectious Disease Exposure No 06/05/2015 10:15am Hospitalization with Isolation Denies 06/05/2015 10:15am Smoking Status Current Everyday Smoker 06/05/2015 10:15am Query Response Start Date Stop Date Smoking Status Current Everyday Smoker Hospital Discharge Instructions No hospital discharge instructions. Plan of Care Discharge Date 06/05/15 12:23pm Disposition 01 HOME, SELF-CARE Condition at Discharge Improved Instructions/Education Provided Cervical Fracture (ED) Abrasion (ED) Forms Provided Work Release Form Prescriptions See Medication Section Referrals [facility] - Primary Care Physician [facility] - Primary Care Physician ARIAN MORRIS MD - Additional Instructions/Education All discharge instructions reviewed with patient and/or family. Voiced understanding. Call Dr. Morris's office today for appointment within the next week for recheck and further evaluation of the fractures of the spinous processes on C4 and C5. Return for worse pain, weakness, numbness or tingling in your arms or legs, breathing problems or other concerns as needed. Continue home medications as directed. Take other medications as directed. Functional Status No functional status results. Allergies, Adverse Reactions, Alerts Allergen Type Severity Reaction Status Last Updated No Known Allergies Allergy Mild Active 05/27/09 Immunizations Name Given Type Tetanus Booster (TDap) Less than 5yrs Historical Vital Signs Acute Vital Signs Vital Response Date/Time Temperature (Fahrenheit) 97.9 degrees F (97.6 - 99.5) 06/05/2015 10:15am Temperature (Calculated Celsius) 36.27620 degrees C (36.4 - 37.5) 06/05/2015 10:15am Pulse Rate (adult) 86 bpm (60 - 90) 06/05/2015 10:15am Respiratory Rate 16 bpm (12 - 24) 06/05/2015 10:15am O2 Sat by Pulse Oximetry 97 % (88 - 100) 06/05/2015 10:15am Blood Pressure 149/87 mm Hg 06/05/2015 10:15am Blood Pressure Mean 107 mm Hg 06/05/2015 10:15am Pain Pain Intensity 7 06/05/2015 10:15am Height (Feet) 5 feet 06/05/2015 10:15am Height (Inches) 11 inches 06/05/2015 10:15am Height (Calculated Centimeters) 180.980921 cm 06/05/2015 10:15am Weight (Pounds) 185 pounds 06/05/2015 10:15am Weight (Calculated Kilograms) 83.694895 kilograms 06/05/2015 10:15am Calculated BMI 25.80 06/05/2015 10:15am Results No known relevant diagnostic tests, laboratory data and/or discharge summary. Procedures No known history of procedures. Encounters Encounter Location Arrival/Admit Date Discharge/Depart Date Attending Provider Departed Emergency Room [facility] 06/05/15 10:09am 12:23pm GISELA MCKENZIE MD Recent Diagnosis
--- OUTSIDE RECORDS SUMMARY | 2018-01-09 01:12 | XMS REPORT | Continuity of Care Document ---
Author Author Formerly [facility], Later [facility] Address Unknown Phone Unavailable Allergies Active Description Code Type Severity Reaction Onset Reported/Identified Relationship to Patient Clinical Status Yes NKANo Known Allergies NKA Miscellaneous Allergy Mild N/A 05/27/2009 Yes Invega Drug Allergy 07/30/2010 Yes Invega Drug Allergy N/A N/A 07/30/2010 Medications There is no data. Problems Date Dx Coded Attending Type Code Diagnosis Diagnosed By 12/31/2008 PETRA SAXENA DO 079.99 UNSPECIFIED VIRAL INFECTION 12/31/2008 PETRA SAXENA DO 388.70 earache 12/31/2008 PETRA SAXENA DO 079.99 UNSPECIFIED VIRAL INFECTION 12/31/2008 PETRA SAXENA DO 388.70 earache 12/31/2008 PETRA SAXENA DO 079.99 UNSPECIFIED VIRAL INFECTION 12/31/2008 PETRA SAXENA DO 388.70 earache 12/31/2008 PETRA SAXENA DO 079.99 UNSPECIFIED VIRAL INFECTION 12/31/2008 PETRA SAXENA DO 388.70 earache 12/31/2008 079.99 UNSPECIFIED VIRAL INFECTION 12/31/2008 388.70 earache 12/31/2008 PETRA SAXENA DO 079.99 UNSPECIFIED VIRAL INFECTION 12/31/2008 PETRA SAXENA DO 388.70 earache 12/31/2008 079.99 UNSPECIFIED VIRAL INFECTION 12/31/2008 388.70 earache 12/31/2008 079.99 UNSPECIFIED VIRAL INFECTION 12/31/2008 388.70 earache 12/31/2008 079.99 UNSPECIFIED VIRAL INFECTION 12/31/2008 388.70 earache 12/31/2008 079.99 UNSPECIFIED VIRAL INFECTION 12/31/2008 388.70 earache 12/31/2008 BERNARD DAVENPORT APRN 079.99 Unspecified Viral Infection 12/31/2008 BERNARD DAVENPORT APRN 388.70 Earache 12/31/2008 079.99 Unspecified Viral Infection 12/31/2008 388.70 Earache 12/31/2008 079.99 Unspecified Viral Infection 12/31/2008 388.70 Earache 12/31/2008 079.99 Unspecified Viral Infection 12/31/2008 388.70 Earache 12/31/2008 079.99 Unspecified Viral Infection 12/31/2008 388.70 Earache 12/31/2008 ROBERT MARIN APRN 079.99 Unspecified Viral Infection 12/31/2008 ROBERT MARIN APRN 388.70 Earache 12/31/2008 ROBERT MARIN APRN 079.99 Unspecified Viral Infection 12/31/2008 ROBERT MARIN APRN 388.70 Earache 12/31/2008 ROBERT MARIN APRN 079.99 Unspecified Viral Infection 12/31/2008 ROBERT MARIN APRN 388.70 Earache 12/31/2008 BERNARD DAVENPORT APRN 079.99 Unspecified Viral Infection 12/31/2008 BERNARD DAVENPORT APRN 388.70 Earache 12/31/2008 ROBERT MARIN APRN 079.99 Unspecified Viral Infection 12/31/2008 ROBERT MARIN APRN 388.70 Earache 12/31/2008 KALPESH SÁNCHEZ APRN 079.99 Unspecified Viral Infection 12/31/2008 KALPESH SÁNCHEZ APRN 388.70 Earache 12/31/2008 KALPESH SÁNCHEZ APRN 079.99 Unspecified Viral Infection 12/31/2008 DIEGO SÁNCHEZ APRNA Fabio 388.70 Earache 12/31/2008 DIEGO SÁNCHEZ APRNA Fabio 079.99 Unspecified Viral Infection 12/31/2008 KALPESH SÁNCHEZ APRN 388.70 Earache 12/31/2008 KALPESH SÁNCHEZ APRN 079.99 Unspecified Viral Infection 12/31/2008 KALPESH SÁNCHEZ APRN 388.70 Earache 12/31/2008 DIEGO SÁNCHEZ APRNA J 079.99 Unspecified Viral Infection 12/31/2008 DIEGO SÁNCHEZ APRNA Fabio 388.70 Earache 01/03/2009 PETRA SAXENA DO F 380.4 CERUMEN IMPACTION 01/03/2009 PETRA SAXENA DO F 380.4 CERUMEN IMPACTION 01/03/2009 PETRA SAXENA DO F 380.4 CERUMEN IMPACTION 01/03/2009 PETRA SAXENA DO F 380.4 CERUMEN IMPACTION 01/03/2009 380.4 CERUMEN IMPACTION 01/03/2009 PETRA SAXENA DO F 380.4 CERUMEN IMPACTION 01/03/2009 380.4 CERUMEN IMPACTION 01/03/2009 380.4 CERUMEN IMPACTION 01/03/2009 380.4 CERUMEN IMPACTION 01/03/2009 380.4 CERUMEN IMPACTION 01/03/2009 BERNARD DAVENPORT APRN 380.4 CERUMEN IMPACTION 01/03/2009 380.4 CERUMEN IMPACTION 01/03/2009 380.4 CERUMEN IMPACTION 01/03/2009 380.4 CERUMEN IMPACTION 01/03/2009 380.4 CERUMEN IMPACTION 01/03/2009 ROBERT MARIN APRN 380.4 CERUMEN IMPACTION 01/03/2009 ROBERT MARIN APRN 380.4 CERUMEN IMPACTION 01/03/2009 ROBERT MARIN APRN 380.4 CERUMEN IMPACTION 01/03/2009 BERNARD DAVENPORT APRN 380.4 CERUMEN IMPACTION 01/03/2009 ROBERT MARIN APRN 380.4 CERUMEN IMPACTION 01/03/2009 KALPESH SÁNCHEZ APRN 380.4 CERUMEN IMPACTION 01/03/2009 KALPESH SÁNCHEZ APRN 380.4 CERUMEN IMPACTION 01/03/2009 KALPESH SÁNCHEZ APRN 380.4 CERUMEN IMPACTION 01/03/2009 KALPESH SÁNCHEZ APRN 380.4 CERUMEN IMPACTION 01/03/2009 KALPESH SÁNCHEZ APRN J 380.4 CERUMEN IMPACTION 01/10/2009 PETRA SAXENA DO F 477.9 RHINITIS 01/10/2009 PETRA SAXENA DO F 477.9 RHINITIS 01/10/2009 PETRA SAXENA DO 477.9 RHINITIS 01/10/2009 PETRA SAXENA DO 477.9 RHINITIS 01/10/2009 477.9 RHINITIS 01/10/2009 PETRA SAXENA DO 477.9 RHINITIS 01/10/2009 477.9 RHINITIS 01/10/2009 477.9 RHINITIS 01/10/2009 477.9 RHINITIS 01/10/2009 477.9 RHINITIS 01/10/2009 BERNARD DAVENPORT APRN 477.9 Rhinitis 01/10/2009 477.9 Rhinitis 01/10/2009 477.9 Rhinitis 01/10/2009 477.9 Rhinitis 01/10/2009 477.9 Rhinitis 01/10/2009 ROBERT MARIN APRN 477.9 Rhinitis 01/10/2009 ROBERT MARIN APRN 477.9 Rhinitis 01/10/2009 ROBERT MARIN APRN 477.9 Rhinitis 01/10/2009 BERNARD DAVENPORT APRN 477.9 Rhinitis 01/10/2009 ROBERT MARIN APRN 477.9 Rhinitis 01/10/2009 DIEGO SÁNCHEZ APRNA J 477.9 Rhinitis 01/10/2009 PRINCESS SYDNEY, KALPESH J 477.9 Rhinitis 01/10/2009 PRINCESS GRIMES, KALPESH J 477.9 Rhinitis 01/10/2009 PRINCESS SYDNEY, KALPESH J 477.9 Rhinitis 01/10/2009 PRINCESS SYDNEY, KALPESH J 477.9 Rhinitis 05/07/2009 PETRA SAXENA DO 302.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 05/07/2009 PETRA SAXENA DO 302.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 05/07/2009 PETRA SAXENA DO 302.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 05/07/2009 PETRA SAXENA DO 302.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 05/07/2009 302.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 05/07/2009 PETRA SAXENA DO 302.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 05/07/2009 302.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 05/07/2009 302.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 05/07/2009 302.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 05/07/2009 302.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 05/07/2009 BERNARD DAVENPORT APRN 302.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 05/07/2009 302.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 05/07/2009 302.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 05/07/2009 302.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 05/07/2009 302.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 05/07/2009 ROBERT MARIN APRN 302.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 05/07/2009 ROBERT MARIN APRN 302.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 05/07/2009 ROBERT MARIN APRN 302.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 05/07/2009 BERNARD DAVENPORT APRN 302.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 05/07/2009 ROBERT MARIN APRN 302.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 05/07/2009 KALPESH SÁNCHEZ APRN 302.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 05/07/2009 KALPESH SÁNCHEZ APRN 302.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 05/07/2009 DIEGO SÁNCHEZ APRNA Fabio 302.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 05/07/2009 DIEGO SÁNCHEZ APRNA Fabio 302.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 05/07/2009 KALPESH SÁNCHEZ APRN 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.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 04/22/2010 PETRA SAXENA DO 333.99 RESTLESS LEG SYNDROME 04/22/2010 PETRA SAXENA DO 333.99 RESTLESS LEG SYNDROME 04/22/2010 PETRA SAXENA DO 333.99 RESTLESS LEG SYNDROME 04/22/2010 PETRA SAXENA DO 333.99 RESTLESS LEG SYNDROME 04/22/2010 333.99 RESTLESS LEG SYNDROME 04/22/2010 PETRA SAXENA DO 333.99 RESTLESS LEG SYNDROME 04/22/2010 333.99 RESTLESS LEG SYNDROME 04/22/2010 333.99 RESTLESS LEG SYNDROME 04/22/2010 333.99 RESTLESS LEG SYNDROME 04/22/2010 333.99 RESTLESS LEG SYNDROME 04/22/2010 BERNARD DAVENPORT APRN 333.99 RESTLESS LEG SYNDROME 04/22/2010 333.99 RESTLESS LEG SYNDROME 04/22/2010 333.99 RESTLESS LEG SYNDROME 04/22/2010 333.99 RESTLESS LEG SYNDROME 04/22/2010 333.99 RESTLESS LEG SYNDROME 04/22/2010 ROBERT MARIN APRN 333.99 RESTLESS LEG SYNDROME 04/22/2010 ROBERT MARIN APRN 333.99 RESTLESS LEG SYNDROME 04/22/2010 ROBERT MARIN APRN 333.99 RESTLESS LEG SYNDROME 04/22/2010 BERNARD DAVENPORT APRN 333.99 RESTLESS LEG SYNDROME 04/22/2010 ROBERT MARIN APRN 333.99 RESTLESS LEG SYNDROME 04/22/2010 JESSY SÁNCHEZ APRNINDA J 333.99 RESTLESS LEG SYNDROME 04/22/2010 PRINCESS GRIMES KALPESH J 333.99 RESTLESS LEG SYNDROME 04/22/2010 DIEGO SÁNCHEZ APRNA J 333.99 RESTLESS LEG SYNDROME 04/22/2010 PRINCESS GRIMES KALPESH J 333.99 RESTLESS LEG SYNDROME 04/22/2010 PRINCESS GRIMES KALPESH J 333.99 RESTLESS LEG SYNDROME 06/04/2010 PETRA SAXENA DO 305.1 NONDEPENDENT TOBACCO USE DISORDER 06/04/2010 PETRA SAXENA DO 491.21 BRONCHITIS AECB 06/04/2010 PETRA SAXENA DO 305.1 NONDEPENDENT TOBACCO USE DISORDER 06/04/2010 PETRA SAXENA DO 491.21 BRONCHITIS AECB 06/04/2010 PETRA SAXENA DO 305.1 NONDEPENDENT TOBACCO USE DISORDER 06/04/2010 PETRA SAXENA DO 491.21 BRONCHITIS AECB 06/04/2010 PETRA SAXENA DO 305.1 NONDEPENDENT TOBACCO USE DISORDER 06/04/2010 PETRA SAXENA DO 491.21 BRONCHITIS AECB 06/04/2010 305.1 NONDEPENDENT TOBACCO USE DISORDER 06/04/2010 491.21 BRONCHITIS AECB 06/04/2010 PETRA SAXENA DO 305.1 NONDEPENDENT TOBACCO USE DISORDER 06/04/2010 PETRA SAXENA DO 491.21 BRONCHITIS AECB 06/04/2010 305.1 NONDEPENDENT TOBACCO USE DISORDER 06/04/2010 491.21 BRONCHITIS AECB 06/04/2010 305.1 NONDEPENDENT TOBACCO USE DISORDER 06/04/2010 491.21 BRONCHITIS AECB 06/04/2010 305.1 NONDEPENDENT TOBACCO USE DISORDER 06/04/2010 491.21 BRONCHITIS AECB 06/04/2010 305.1 NONDEPENDENT TOBACCO USE DISORDER 06/04/2010 491.21 BRONCHITIS AECB 06/04/2010 BERNARD DAVENPORT APRN 305.1 NONDEPENDENT TOBACCO USE DISORDER 06/04/2010 BERNARD DAVENPORT APRN 491.21 Bronchitis Aecb 06/04/2010 305.1 NONDEPENDENT TOBACCO USE DISORDER 06/04/2010 491.21 Bronchitis Aecb 06/04/2010 305.1 NONDEPENDENT TOBACCO USE DISORDER 06/04/2010 491.21 Bronchitis Aecb 06/04/2010 305.1 NONDEPENDENT TOBACCO USE DISORDER 06/04/2010 491.21 Bronchitis Aecb 06/04/2010 305.1 NONDEPENDENT TOBACCO USE DISORDER 06/04/2010 491.21 Bronchitis Aecb 06/04/2010 ROBERT MARIN APRN 305.1 NONDEPENDENT TOBACCO USE DISORDER 06/04/2010 ROBERT MARIN APRN 491.21 Bronchitis Aecb 06/04/2010 ROBERT MARIN APRN 305.1 NONDEPENDENT TOBACCO USE DISORDER 06/04/2010 ROBERT MARIN APRN 491.21 Bronchitis Aecb 06/04/2010 ROBERT MARIN APRN 305.1 NONDEPENDENT TOBACCO USE DISORDER 06/04/2010 ROBERT MARIN APRN 491.21 Bronchitis Aecb 06/04/2010 BERNARD DAVENPORT APRN 305.1 NONDEPENDENT TOBACCO USE DISORDER 06/04/2010 BERNARD DAVENPORT APRN 491.21 Bronchitis Aecb 06/04/2010 ROBERT MARIN APRN 305.1 NONDEPENDENT TOBACCO USE DISORDER 06/04/2010 ROBERT MARIN APRN 491.21 Bronchitis Aecb 06/04/2010 KALPESH SÁNCHEZ APRN 305.1 NONDEPENDENT TOBACCO USE DISORDER 06/04/2010 KALPESH SÁNCHEZ APRN 491.21 Bronchitis Aecb 06/04/2010 KALPESH SÁNCHEZ APRN 305.1 NONDEPENDENT TOBACCO USE DISORDER 06/04/2010 KALPESH SÁNCHEZ APRN 491.21 Bronchitis Aecb 06/04/2010 KALPESH SÁNCHEZ APRN J 305.1 NONDEPENDENT TOBACCO USE DISORDER 06/04/2010 KALPESH SÁNCHEZ APRN J 491.21 Bronchitis Aecb 06/04/2010 KALPESH SÁNCHEZ APRN J 305.1 NONDEPENDENT TOBACCO USE DISORDER 06/04/2010 KALPESH SÁNCHEZ APRN J 491.21 Bronchitis Aecb 06/04/2010 KALPESH SÁNCHEZ APRN J 305.1 NONDEPENDENT TOBACCO USE DISORDER 06/04/2010 KALPESH SÁNCHEZ APRN J 491.21 Bronchitis Aecb 07/27/2010 PETRA SAXENA DO 955.2 INJURY TO ULNAR NERVE 07/27/2010 PETRA SAXENA DO 955.2 INJURY TO ULNAR NERVE 07/27/2010 PETRA SAXENA DO 955.2 INJURY TO ULNAR NERVE 07/27/2010 PETRA SAXENA DO 955.2 INJURY TO ULNAR NERVE 07/27/2010 955.2 INJURY TO ULNAR NERVE 07/27/2010 PETRA SAXENA DO 955.2 INJURY TO ULNAR NERVE 07/27/2010 955.2 INJURY TO ULNAR NERVE 07/27/2010 955.2 INJURY TO ULNAR NERVE 07/27/2010 955.2 INJURY TO ULNAR NERVE 07/27/2010 955.2 INJURY TO ULNAR NERVE 07/27/2010 BERNARD DAVENPORT APRN 955.2 Injury To Ulnar Nerve 07/27/2010 955.2 Injury To Ulnar Nerve 07/27/2010 955.2 Injury To Ulnar Nerve 07/27/2010 955.2 Injury To Ulnar Nerve 07/27/2010 955.2 Injury To Ulnar Nerve 07/27/2010 ROBERT MARIN APRN 955.2 Injury To Ulnar Nerve 07/27/2010 ROBERT MARIN APRN 955.2 Injury To Ulnar Nerve 07/27/2010 ROBERT MARIN APRN 955.2 Injury To Ulnar Nerve 07/27/2010 BERNARD DAVENPORT APRN 955.2 Injury To Ulnar Nerve 07/27/2010 ROBERT MARIN APRN 955.2 Injury To Ulnar Nerve 07/27/2010 KALPESH SÁNCHEZ APRN 955.2 Injury To Ulnar Nerve 07/27/2010 KALPESH SÁNCHEZ APRN 955.2 Injury To Ulnar Nerve 07/27/2010 KALPESH SÁNCHEZ APRN 955.2 Injury To Ulnar Nerve 07/27/2010 KALPESH SÁNCHEZ APRN 955.2 Injury To Ulnar Nerve 07/27/2010 KALPESH SÁNCHEZ APRN 955.2 Injury To Ulnar Nerve 07/30/2010 PETRA SAXENA DO 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 UNSPECIFIED 07/30/2010 PETRA SAXENA DO F V58.69 MEDICATION HIGH RISK 07/30/2010 PETRA SAXENA DO F 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 UNSPECIFIED 07/30/2010 PETRA SAXENA DO F V58.69 MEDICATION HIGH RISK 07/30/2010 PETRA SAXENA DO F 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 UNSPECIFIED 07/30/2010 PETRA SAXENA DO F V58.69 MEDICATION HIGH RISK 07/30/2010 [facility] F 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 UNSPECIFIED 07/30/2010 PETRA SAXENA DO F V58.69 MEDICATION HIGH RISK 07/30/2010 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 UNSPECIFIED 07/30/2010 V58.69 MEDICATION HIGH RISK 07/30/2010 PETRA SAXENA DO F 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 UNSPECIFIED 07/30/2010 PETRA SAXENA DO F V58.69 MEDICATION HIGH RISK 07/30/2010 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 UNSPECIFIED 07/30/2010 V58.69 MEDICATION HIGH RISK 07/30/2010 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 UNSPECIFIED 07/30/2010 V58.69 MEDICATION HIGH RISK 07/30/2010 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 UNSPECIFIED 07/30/2010 V58.69 MEDICATION HIGH RISK 07/30/2010 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 UNSPECIFIED 07/30/2010 V58.69 MEDICATION HIGH RISK 07/30/2010 BERNARD DAVENPORT APRN 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 UNSPECIFIED 07/30/2010 BERNARD DAVENPORT APRN V58.69 Medication High Risk 07/30/2010 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 UNSPECIFIED 07/30/2010 V58.69 Medication High Risk 07/30/2010 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 UNSPECIFIED 07/30/2010 V58.69 Medication High Risk 07/30/2010 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 UNSPECIFIED 07/30/2010 V58.69 Medication High Risk 07/30/2010 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 UNSPECIFIED 07/30/2010 V58.69 Medication High Risk 07/30/2010 ROBERT MARIN APRN 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 UNSPECIFIED 07/30/2010 ROBERT MARIN APRN V58.69 Medication High Risk 07/30/2010 ROBERT MARIN APRN 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 UNSPECIFIED 07/30/2010 ROBERT MARIN APRN V58.69 Medication High Risk 07/30/2010 ROBERT MARIN APRN 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 UNSPECIFIED 07/30/2010 ROBERT MARIN APRN V58.69 Medication High Risk 07/30/2010 BERNARD DAVENPORT APRN 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 UNSPECIFIED 07/30/2010 BERNARD DAVENPORT APRN V58.69 Medication High Risk 07/30/2010 ROBERT MARIN APRN 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 UNSPECIFIED 07/30/2010 ROBERT MARIN APRN V58.69 Medication High Risk 07/30/2010 KALPESH SÁNCHEZ APRN 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 UNSPECIFIED 07/30/2010 KALPESH SÁNCHEZ APRN V58.69 Medication High Risk 07/30/2010 KALPESH SÁNCHEZ APRN 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 UNSPECIFIED 07/30/2010 DIEGO SÁNCHEZ APRNA J V58.69 Medication High Risk 07/30/2010 DIEGO SÁNCHEZ APRNA J 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 UNSPECIFIED 07/30/2010 DIEGO SÁNCHEZ APRNA J V58.69 Medication High Risk 07/30/2010 DIEGO SÁNCHEZ APRNA J 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 UNSPECIFIED 07/30/2010 DIEGO SÁNCHEZ APRNA J V58.69 Medication High Risk 07/30/2010 DIEGO SÁNCHEZ APRNA J 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 UNSPECIFIED 07/30/2010 KALPESH SÁNCHEZ APRN V58.69 Medication High Risk 09/21/2010 PETRA SAXENA DO 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 09/21/2010 PETRA SAXENA DO F 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 09/21/2010 PETRA SAXENA DO 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 09/21/2010 PETRA SAXENA DO 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 09/21/2010 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 09/21/2010 PETRA SAXENA DO F 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 09/21/2010 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 09/21/2010 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 09/21/2010 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 09/21/2010 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 09/21/2010 BERNARD DAVENPORT APRN 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 09/21/2010 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 09/21/2010 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 09/21/2010 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 09/21/2010 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 09/21/2010 ROBERT MARIN APRN 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 09/21/2010 ROBERT MARIN APRN 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 09/21/2010 ROBERT MARIN APRN 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 09/21/2010 BERNARD DAVENPORT APRN 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 09/21/2010 ROBERT MARIN APRN 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 09/21/2010 KALPESH SÁNCHEZ APRN 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 09/21/2010 KALPESH SÁNCHEZ APRN 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 09/21/2010 KALPESH SÁNCHEZ APRN 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 09/21/2010 KALPESH SÁNCHEZ APRN 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 09/21/2010 KALPESH SÁNCHEZ APRN 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 11/23/2010 WERDER DO, PETRA F 228.00 HEMANGIOMA OF UNSPECIFIED SITE 11/23/2010 HEMANTH GAMEZ PETRA F 919.4 INSECT BITE NONVENOMOUS OF OTHER MULTIPLE AND UNSPECIFIED SITES WITHOUT INFECTION 11/23/2010 HEMANTH GAMEZ PETRA F 228.00 HEMANGIOMA OF UNSPECIFIED SITE 11/23/2010 HEMANTH GAMEZ PETRA F 919.4 INSECT BITE NONVENOMOUS OF OTHER MULTIPLE AND UNSPECIFIED SITES WITHOUT INFECTION 11/23/2010 HEMANTH GAMEZ PETRA F 228.00 HEMANGIOMA OF UNSPECIFIED SITE 11/23/2010 HEMANTH GAMEZ PETRA F 919.4 INSECT BITE NONVENOMOUS OF OTHER MULTIPLE AND UNSPECIFIED SITES WITHOUT INFECTION 11/23/2010 HEMANTH GAMEZ PETRA F 228.00 HEMANGIOMA OF UNSPECIFIED SITE 11/23/2010 PETRA SAXENA DO F 919.4 INSECT BITE NONVENOMOUS OF OTHER MULTIPLE AND UNSPECIFIED SITES WITHOUT INFECTION 11/23/2010 228.00 HEMANGIOMA OF UNSPECIFIED SITE 11/23/2010 919.4 INSECT BITE NONVENOMOUS OF OTHER MULTIPLE AND UNSPECIFIED SITES WITHOUT INFECTION 11/23/2010 PETRA SAXENA DO F 228.00 HEMANGIOMA OF UNSPECIFIED SITE 11/23/2010 HEMANTH GAMEZ PETRA F 919.4 INSECT BITE NONVENOMOUS OF OTHER MULTIPLE AND UNSPECIFIED SITES WITHOUT INFECTION 11/23/2010 228.00 HEMANGIOMA OF UNSPECIFIED SITE 11/23/2010 919.4 INSECT BITE NONVENOMOUS OF OTHER MULTIPLE AND UNSPECIFIED SITES WITHOUT INFECTION 11/23/2010 228.00 HEMANGIOMA OF UNSPECIFIED SITE 11/23/2010 919.4 INSECT BITE NONVENOMOUS OF OTHER MULTIPLE AND UNSPECIFIED SITES WITHOUT INFECTION 11/23/2010 228.00 HEMANGIOMA OF UNSPECIFIED SITE 11/23/2010 919.4 INSECT BITE NONVENOMOUS OF OTHER MULTIPLE AND UNSPECIFIED SITES WITHOUT INFECTION 11/23/2010 228.00 HEMANGIOMA OF UNSPECIFIED SITE 11/23/2010 919.4 INSECT BITE NONVENOMOUS OF OTHER MULTIPLE AND UNSPECIFIED SITES WITHOUT INFECTION 11/23/2010 BERNARD DAVENPORT APRN 228.00 Hemangioma Of Unspecified Site 11/23/2010 BERNARD DAVENPORT APRN 919.4 Insect Bite Nonvenomous Of Other Multiple And Unspecified Sites Without Infection 11/23/2010 228.00 Hemangioma Of Unspecified Site 11/23/2010 919.4 Insect Bite Nonvenomous Of Other Multiple And Unspecified Sites Without Infection 11/23/2010 228.00 Hemangioma Of Unspecified Site 11/23/2010 919.4 Insect Bite Nonvenomous Of Other Multiple And Unspecified Sites Without Infection 11/23/2010 228.00 Hemangioma Of Unspecified Site 11/23/2010 919.4 Insect Bite Nonvenomous Of Other Multiple And Unspecified Sites Without Infection 11/23/2010 228.00 Hemangioma Of Unspecified Site 11/23/2010 919.4 Insect Bite Nonvenomous Of Other Multiple And Unspecified Sites Without Infection 11/23/2010 ROBERT MARIN APRN 228.00 Hemangioma Of Unspecified Site 11/23/2010 ROBERT MARIN APRN 919.4 Insect Bite Nonvenomous Of Other Multiple And Unspecified Sites Without Infection 11/23/2010 ROBERT MARIN APRN 228.00 Hemangioma Of Unspecified Site 11/23/2010 ROBERT MARIN APRN 919.4 Insect Bite Nonvenomous Of Other Multiple And Unspecified Sites Without Infection 11/23/2010 ROBERT MARIN APRN 228.00 Hemangioma Of Unspecified Site 11/23/2010 ROBERT MARIN APRN 919.4 Insect Bite Nonvenomous Of Other Multiple And Unspecified Sites Without Infection 11/23/2010 BERNARD DAVENPORT APRN 228.00 Hemangioma Of Unspecified Site 11/23/2010 BERNARD DAVENPORT APRN 919.4 Insect Bite Nonvenomous Of Other Multiple And Unspecified Sites Without Infection 11/23/2010 ROBERT MARIN APRN 228.00 Hemangioma Of Unspecified Site 11/23/2010 ROBERT MARIN APRN 919.4 Insect Bite Nonvenomous Of Other Multiple And Unspecified Sites Without Infection 11/23/2010 KALPESH SÁNCHEZ APRN 228.00 Hemangioma Of Unspecified Site 11/23/2010 KALPESH SÁNCHEZ APRN 919.4 Insect Bite Nonvenomous Of Other Multiple And Unspecified Sites Without Infection 11/23/2010 KALPESH SÁNCHEZ APRN 228.00 Hemangioma Of Unspecified Site 11/23/2010 PRINCESS ESCALANTEN, KALPESH J 919.4 Insect Bite Nonvenomous Of Other Multiple And Unspecified Sites Without Infection 11/23/2010 PRINCESS ESCALANTEN, KALPESH J 228.00 Hemangioma Of Unspecified Site 11/23/2010 PRINCESS TRAWL NET MAKER, KALPESH J 919.4 Insect Bite Nonvenomous Of Other Multiple And Unspecified Sites Without Infection 11/23/2010 PRINCESS ESCALANTEN, KALPESH J 228.00 Hemangioma Of Unspecified Site 11/23/2010 PRINCESS ESCALANTEN, KALPESH J 919.4 Insect Bite Nonvenomous Of Other Multiple And Unspecified Sites Without Infection 11/23/2010 PRINCESS ESCALANTEN, KALPESH J 228.00 Hemangioma Of Unspecified Site 11/23/2010 PRINCESS ESCALANTEN, KALPESH J 919.4 Insect Bite Nonvenomous Of Other Multiple And Unspecified Sites Without Infection 03/03/2011 PETRA SAXENA DO F 295.70 P SCHIZO AFFECTIVE 03/03/2011 PETRA SAXENA DO F 295.70 P SCHIZO AFFECTIVE 03/03/2011 PETRA SAXENA DO F 295.70 P SCHIZO AFFECTIVE 03/03/2011 PETRA SAXENA DO F 295.70 P SCHIZO AFFECTIVE 03/03/2011 295.70 P SCHIZO AFFECTIVE 03/03/2011 PETRA SAXENA DO F 295.70 P SCHIZO AFFECTIVE 03/03/2011 295.70 P SCHIZO AFFECTIVE 03/03/2011 295.70 P SCHIZO AFFECTIVE 03/03/2011 295.70 P SCHIZO AFFECTIVE 03/03/2011 295.70 P SCHIZO AFFECTIVE 03/03/2011 BERNARD DAVENPORT APRN 295.70 P SCHIZO AFFECTIVE 03/03/2011 295.70 P SCHIZO AFFECTIVE 03/03/2011 295.70 P SCHIZO AFFECTIVE 03/03/2011 295.70 P SCHIZO AFFECTIVE 03/03/2011 295.70 P SCHIZO AFFECTIVE 03/03/2011 ROBERT MARIN APRN 295.70 P SCHIZO AFFECTIVE 03/03/2011 ROBERT MARIN APRN 295.70 P SCHIZO AFFECTIVE 03/03/2011 ROBERT MARIN APRN 295.70 P SCHIZO AFFECTIVE 03/03/2011 BERNARD DAVENPORT APRN 295.70 P SCHIZO AFFECTIVE 03/03/2011 ROBERT MARIN APRN 295.70 P SCHIZO AFFECTIVE 03/03/2011 PRINCESS GRIMES, KALPESH J 295.70 P SCHIZO AFFECTIVE 03/03/2011 PRINCESS GRIMES, KALPESH J 295.70 P SCHIZO AFFECTIVE 03/03/2011 PRINCESS SYDNEY, KALPESH J 295.70 P SCHIZO AFFECTIVE 03/03/2011 PRINCESS GRIMES, KALPESH J 295.70 P SCHIZO AFFECTIVE 03/03/2011 PRINCESS GRIMES, KALPESH J 295.70 P SCHIZO AFFECTIVE 06/16/2011 PETRA SAXENA DO F 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 06/16/2011 PETRA SXAENA DO F 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 06/16/2011 PETRA SAXENA DO F 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 06/16/2011 PETRA SAXENA DO F 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 06/16/2011 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 06/16/2011 PETRA SAXENA DO F 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 06/16/2011 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 06/16/2011 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 06/16/2011 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 06/16/2011 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 06/16/2011 BERNARD DAVENPORT APRN 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 06/16/2011 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 06/16/2011 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 06/16/2011 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 06/16/2011 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 06/16/2011 ROBERT MARIN APRN 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 06/16/2011 ROBERT MARIN APRN 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 06/16/2011 ROBERT MARIN APRN 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 06/16/2011 BERNARD DAVENPORT APRN 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 06/16/2011 ROBERT MARIN APRN 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 06/16/2011 DIEGO SÁNCHEZ APRNA J 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 06/16/2011 DIEGO SÁNCHEZ APRNA J 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 06/16/2011 DIEGO SÁNCHEZ APRNA J 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 06/16/2011 DIEGO SÁNCHEZ APRNA J 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 06/16/2011 KALPESH SÁNCHEZ APRN J 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 01/05/2012 PETRA SAXENA DO 696.1 PSORIASIS 01/05/2012 PETRA SAXENA DO 696.1 PSORIASIS 01/05/2012 PETRA SAXENA DO 696.1 PSORIASIS 01/05/2012 PETRA SAXENA DO 696.1 PSORIASIS 01/05/2012 696.1 PSORIASIS 01/05/2012 PETRA SAXENA DO 696.1 PSORIASIS 01/05/2012 696.1 PSORIASIS 01/05/2012 696.1 PSORIASIS 01/05/2012 696.1 PSORIASIS 01/05/2012 696.1 PSORIASIS 01/05/2012 BERNARD DAVENPORT APRN 696.1 PSORIASIS 01/05/2012 696.1 PSORIASIS 01/05/2012 696.1 PSORIASIS 01/05/2012 696.1 PSORIASIS 01/05/2012 696.1 PSORIASIS 01/05/2012 ROBERT MARIN APRN 696.1 PSORIASIS 01/05/2012 ROBERT MARIN APRN 696.1 PSORIASIS 01/05/2012 ROBERT MARIN APRN 696.1 PSORIASIS 01/05/2012 BERNARD DAVENPORT APRN 696.1 PSORIASIS 01/05/2012 ROBERT MARIN APRN 696.1 PSORIASIS 01/05/2012 KALPESH SÁNCHEZ APRN 696.1 PSORIASIS 01/05/2012 KALPESH SÁNCHEZ APRN 696.1 PSORIASIS 01/05/2012 KALPESH SÁNCHEZ APRN 696.1 PSORIASIS 01/05/2012 KALPESH SÁNCHEZ APRN 696.1 PSORIASIS 01/05/2012 KALPESH SÁNCHEZ APRN 696.1 PSORIASIS 01/18/2013 ROBERT MARIN APRN V58.69 MEDICATION HIGH RISK 01/18/2013 ROBERT MARIN APRN V58.69 MEDICATION HIGH RISK 01/18/2013 ROBERT MARIN APRN V58.69 MEDICATION HIGH RISK 01/18/2013 BERNARD DAVENPORT APRN V58.69 MEDICATION HIGH RISK 01/18/2013 ROBERT MARIN APRN V58.69 MEDICATION HIGH RISK 01/18/2013 KALPESH SÁNCHEZ APRN V58.69 MEDICATION HIGH RISK 01/18/2013 DIEGO SÁNCHEZ APRNA Fabio V58.69 MEDICATION HIGH RISK 01/18/2013 DIEGO SÁNCHEZ APRNA Fabio V58.69 MEDICATION HIGH RISK 01/18/2013 DIEGO SÁNCHEZ APRNA Fabio V58.69 MEDICATION HIGH RISK 01/18/2013 DIEGO SÁNCHEZ APRNA J V58.69 MEDICATION HIGH RISK 10/11/2013 DIEGO SÁNCHEZ APRNA J 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 10/11/2013 DIEGO SÁNCHEZ APRNA J 300.02 AN GEN ANXIETY 10/11/2013 JESSY SÁNCHEZ APRNINDA J 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 10/11/2013 DIEGO SÁNCHEZ APRNA J 300.02 AN GEN ANXIETY 10/11/2013 DIEGO SÁNCHEZ APRNA J 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 10/11/2013 JESSY SÁNCHEZ APRNINDA J 300.02 AN GEN ANXIETY 10/11/2013 JESSY SÁNCHEZ APRNINDA J 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 10/11/2013 DIEGO SÁNCHEZ APRNA J 300.02 AN GEN ANXIETY 10/11/2013 DIEGO SÁNCHEZ APRNA J 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 10/11/2013 DIEGO SÁNCHEZ APRNA J 300.02 AN GEN ANXIETY 06/05/2015 GISELA MCKENZIE MD Ot F17.210 06/05/2015 GISELA MCKENZIE MD Ot M50.30 06/05/2015 GISELA MCKENZIE MD Ot S12.301A 06/05/2015 GISELA MCKENZIE MD Ot V17.2XXA 06/05/2015 GISELA MCKENZIE MD Ot Y92.414 06/05/2015 GISELA MCKENZIE MD Ot Y99.8 Procedures Code [place] [address] PSYCH PHARM MGMT 02/18/2012 42745 PSYCH PHARM MGMT 03/19/2012 01285 ROUTINE VENIPUNCTURE 02/07/2013 64746 A1C (IN-HOUSE) 02/07/2013 91356 LIPID PANEL 02/07/2013 39910 CBC 02/07/2013 [id number] GFR CALC (RESULT ONLY) 02/07/2013 76996 CMP 02/07/2013 27195 TSH 02/07/2013 Results There is no data. Encounters ACCT No. Visit Date/Time Discharge Status Pt. Type Provider Facility Loc./Unit Complaint [id number] 08/01/2014 14:51:00 08/01/2014 23:59:59 CLS Outpatient KALPESH SÁNCHEZ APRN [id number] 04/25/2014 16:41:00 04/25/2014 23:59:59 CLS Outpatient KALPESH SÁNCHEZ APRN [id number] 11/13/2013 16:45:00 11/13/2013 23:59:59 CLS Outpatient KALPESH SÁNCHEZ APRN [id number] 11/13/2013 16:45:00 11/13/2013 23:59:59 CLS Outpatient KALPESH SÁNCHEZ APRN [id number] 10/11/2013 14:53:00 10/11/2013 23:59:59 CLS Outpatient KALPESH SÁNCHEZ APRN [id number] 07/04/2013 16:32:00 07/04/2013 23:59:59 CLS Outpatient BERNARD DAVENPORT APRN [id number] 06/26/2013 16:40:00 06/26/2013 23:59:59 CLS Outpatient ROBERT MARIN APRN [id number] 02/07/2013 09:01:00 02/07/2013 23:59:59 CLS Outpatient ROBERT MARIN APRN [id number] 01/18/2013 15:49:00 01/18/2013 23:59:59 CLS Outpatient ROBERT MARIN APRN [id number] 01/18/2013 15:49:00 01/18/2013 23:59:59 CLS Outpatient TANIA ESCALANTEROBERT [place] [id number] 07/19/2012 15:18:00 07/19/2012 23:59:59 CLS Outpatient ETHEL ESCALANTENBERNARD [id number] 06/22/2012 13:48:00 06/22/2012 23:59:59 CLS Outpatient [id number] 06/22/2012 13:48:00 06/22/2012 23:59:59 CLS Outpatient [id number] 04/20/2012 17:26:00 04/20/2012 23:59:59 CLS Outpatient [id number] 04/20/2012 17:26:00 04/20/2012 23:59:59 CLS Outpatient [id number] 04/13/2012 18:07:00 04/13/2012 23:59:59 CLS Outpatient PETRA SAXENA DO [id number] 03/17/2012 14:01:00 03/17/2012 23:59:59 CLS Outpatient PETRA SAXENA DO [id number] 02/18/2012 12:54:00 02/18/2012 23:59:59 CLS Outpatient PETRA SAXENA DO [id number] 02/18/2012 12:54:00 02/18/2012 23:59:59 [place] [id number] 02/18/2012 12:54:00 02/18/2012 23:59:59 CLS Outpatient PETRA SAXENA DO [id number] 02/18/2012 00:00:00 02/18/2012 23:59:59 CLS Outpatient [id number] 11/21/2012 15:11:00 Document Registration [id number] 09/06/2012 14:43:00 Document Registration [id number] 08/31/2012 17:54:00 Document Registration [id number] 08/31/2012 17:54:00 Document Registration [id number] 09/01/2017 14:40:00 09/01/2017 23:59:59 CLS Outpatient ETHEL ESCALANTENBERNARD Jimy [facility] [id number] 06/05/2015 10:09:00 06/05/2015 12:23:00 DIS Emergency MAGALY BRIGGS, GISELA Crowe [facility] ER
[2018-01-09 01:17] VITALS: BP 0/0
[2018-01-09] MEDS ORDERED: EPINEPHrine INJECTION 1 MG/ML AMP ONE (01:26)
--- NOTE | 2018-01-09 04:21 | ED CPR ---
HPI-CPR General Chief Complaint: Code Blue Stated Complaint: CODE BLUE Source of Information: EMS, Police, Spouse (VERY LIMITED HISTORIAN) History of Present Illness Date Seen by Provider: Jan 09, 2018 Time Seen by Provider: 00:58 Initial Comments PT ARRIVES VIA EMS FROM HOME--FULL ARREST, CPR IN PROGRESS PT HAD WITNESSED ARREST BY PT WAS IN KITCHEN AND HAD A PLATE OF FOOD, AND SUDDENLY GASPED A COUPLE OF TIMES AND COLLAPSED POLICE AND EMS RECEIVED CALL AT 0028 BY DAUGHTER. NO BYSTANDER CPR DONE, UNTIL POLICE ARRIVED AT 0029 PT IN V-FIB ON EMS ARRIVAL AND HAS REMAINED IN V-FIB THE ENTIRE TIME PT HAS HAD EPI X 4, AND HAS BEEN DEFIBRILLATED X 3 BY EMS PRIOR TO ARRIVAL WITHOUT ANY RESPONSE PT HAS I-GEL LMA DEVICE IN PLACE BY EMS AND IS BEING BAGGED. REPORTS THAT PT DID COMPLAIN OF CHEST PAIN AND SHORTNESS OF BREATH AT 2030 TONIGHT HE THEN LEFT AT UNKNOWN TIME AND CAME BACK AT UNKNOWN TIME PT CALLED A FRIEND AT 2230 FROM HOME AND TOLD FRIEND HE WAS HAVING CHEST PAIN AND SHORTNESS OF BREATH-- WAS ALSO HOME AT THAT TIME, BUT EMS WAS NOT CONTACTED AND PT DID NOT ATTEMPT TO COME TO HOSPITAL DENIES ANY KNOWN HISTORY OF CARDIAC PROBLEMS, BUT STATES HE WOULD OFTEN COMPLAIN OF SHORTNESS OF BREATH WITH EXERTION OR WHEN HE WAS STRESSED, BUT HE NEVER SOUGHT CARE STATES HE WAS A HEAVY SMOKER REPORTS THAT HIS ONLY MEDICAL PROBLEM WAS SCHIZOPHRENIA POLICE REPORT THEY ARE VERY FAMILIAR WITH PT REGARDING SOCIAL ISSUES PCP: SELINA Allergies and Home Medications Patient Home Medication List Home Medication List Reviewed: No Review of Systems Review of Systems Constitutional: other (UNABLE TO OBTAIN) Respiratory: See HPI Cardiovascular: See HPI Past Pwqlgnw-Oapsta-Bbsedd Hx Patient Social History Alcohol Use: Occasionally Uses Recreational Drug Use: No Smoking Status: Current Everyday Smoker Type Used: Cigarettes Recent Foreign Travel: No Contact w/Someone Who Travel: No Past Medical History Surgeries: No (UNKNOWN) Cardiac: No Neurological: No Psychosocial: Yes Schizophrenia Physical Exam Vital Signs Capillary Refill : Height, Weight, BMI Height: '" Weight: lbs. oz. kg; BMI Method: General Appearance: Severe Distress (PT UNRESPONSIVE, IS PALE AND DUSKY, CPR IN PROGRESS WITH LARYNGEAL MASK DEVICE IN PLACE AND PT IS BEING BAGGED. ), Other (INCONTINENT ) HEENT: Other (PUPILS FIXED, EYES DRIED OUT) Respiratory: Other (APNEIC) Cardiovascular: Other (NO PULSE OR AUDIBLE CARDIAC ACTIVITY) Neurologic/Psychiatric: Other (UNRESPONSIVE) Skin: Cool, Cyanosis, Pallor Progress/Results/Core Measures Results/Orders My Orders Orders - AARON HOLLIS DO Amiodarone For Bolus (Cordarone Bolus) (01/09/18 01:00) Epinephrine 1 Mg Injection (Adrenalin I (01/09/18 01:26) Progress Progress Note : Progress Note SEE NURSING NOTES FOR DETAILS PT HAD RECEIVED A TOTAL OF EPINEPHRINE X 4, AND DEFIBRILLATED X 3 PRIOR TO ARRIVAL PT RECEIVED AND ADDITIONAL EPINEPHRINE X 5, ATROPINE X 3, AMIODARONE 300 MG, BICARB X 1, AND DEFIBRILLATED X 4 HERE, WITHOUT SUCCESS PT'S INITIAL RHYTHM ON ARRIVAL WAS V-FIB, AND PT WENT FROM V-FIB TO ASYSTOLE MULTIPLE TIMES AND MEDICATIONS WERE GIVEN ACCORDINGLY EVENTUALLY PT REMAINED IN ASYSTOLE AND CODE WAS CALLED AT 0117, THERE WAS NEVER A PALPABLE PULSE OR SPONTANEOUS RESPIRATORY EFFORT AT ANY TIME. DOWN TIME APPROXIMATELY AN HOUR, WITH PT BEING PULSELESS AND APNEIC THE ENTIRE TIME. Critical Care Note Critical Care Start Time: 00:58 Stop Time: 01:17 Total Time (minutes) 19 MINUTES Departure Communication (Admissions) Family Conversation AND 2 DAUGHTERS PRESENT--POLICE BROUGHT THEM TO HOSPITAL. WITHOUT PROMPTING, ASKED ME IF HE WANTED TO BE AN ORGAN DONOR, AND I ADVISED HER THAT I HAD NO IDEA IF HE WANTED TO BE AN ORGAN DONOR OR NOT, AND ASKED HER IF SHE KNEW WHAT HIS WISHES WERE AND SHE DID NOT THINK HE WANTED TO BE A DONOR, AND ADVISED HER THAT AT THIS POINT HE COULD ONLY DONATE EYES, SKIN, TISSUE AND BONE AND SHE STATED THAT SHE DID NOT WANT HIM TO BE A DONOR. WAS ASKED TO REMAIN IN ER, UNTIL NURSING CONE OPERATOR TALKED TO HER AND PAPERS SIGNED, AND SHE APPEARED TO UNDERSTAND. HOWEVER, SOMEONE ARRIVED IN ER AND AND DAUGHTERS ALL LEFT FROM THE WAITING ROOM WITHOUT ADVISING ANY STAFF THAT THEY WERE LEAVING. THEY DID TAKE PT'S PERSONAL BELONGINGS BUT HIS [place] RING WAS LEFT ON HIS LEFT RING FINGER. DID NOT DISCUSS ANYTHING ABOUT HOME PREFERENCE MULTIPLE ATTEMPTS WERE MADE TO CONTACT AFTER SHE LEFT, BUT NO ANSWER AT ANY TIME. CLERGY CALLED BUT THEY LEFT BEFORE CLERGY ARRIVED. [facility] WAS CONTACTED TO REMOVE BODY, THEY HAVE CAPABILITY OF HOLDING IT UNTIL ARRANGEMENTS ARE MADE BY FAMILY. WILL CALL [facility] IN AM AND INFORM THEM OF PT'S . Impression Primary Impression: Cardiopulmonary arrest Disposition: 20 Condition: Departure-Patient Inst. Referrals: [facility] (PCP/Family) Primary Care Physician AARON HOLLIS DO Jan 09, 2018 04:21
== END 2018-01-09 01:17 | disposition expired ==
LOC: EDUNIT# 00:56 → ER 00:57
DX: I46.9 Cardiac arrest, cause unspecified (principal); F20.9 Schizophrenia, unspecified; F17.210 Nicotine dependence, cigarettes, uncomplicated
CPT/HCPCS: 36680; 92950; 93041; 99291